=== PATIENT | female | born 1935 | race Caucasian/White ===

== ENCOUNTER → 2016-05-13 | Outpatient (REF) | payer MEDICARE, MEDICAID | PROVIDERS: ATTEND Internal Medicine Nephrology | DX: E11.22 Type 2 diabetes mellitus with diabetic chronic kidney disease (principal); I12.9 Hypertensive chronic kidney disease with stage 1 through stage 4 chronic kidney disease, or unspecified chronic kidney disease; N18.3 Chronic kidney disease, stage 3 (moderate); N25.81 Secondary hyperparathyroidism of renal origin; M10.9 Gout, unspecified ==

== ENCOUNTER → 2016-05-13 | Outpatient (REF) | payer MEDICARE, MEDICAID ==
[2016-05-13 11:02] LABS: MEAN CORPUSCULAR HEMOGLOBIN 30.1 pg (27.0-33.0); MEAN CORPUSCULAR HGB CONC 33.7 g/dl (32.0-36.5); MEAN CORPUSCULAR VOLUME 89.2 fl (80.0-96.0); RED CELL DISTRIBUTION WIDTH 13.7 % (11.5-14.5); WHITE BLOOD COUNT 7.2 K/mm3 (4.0-10.0)
[2016-05-13 11:29] LABS: ALBUMIN 3.3 GM/DL (3.2-5.2); CALCIUM LEVEL 9.2 MG/DL (8.8-10.2); CREATININE FOR GFR 1.27 MG/DL (0.55-1.02); GLOMERULAR FILTRATION RATE 43.1 (>32); PHOSPHORUS LEVEL 3.8 MG/DL (2.5-4.9); POTASSIUM SERUM 3.8 MEQ/L (3.5-5.1); URIC ACID 6.2 MG/DL (2.6-6.0)
== END ==
PROVIDERS: ATTEND Internal Medicine Nephrology
DX: E11.22 Type 2 diabetes mellitus with diabetic chronic kidney disease (principal); I12.9 Hypertensive chronic kidney disease with stage 1 through stage 4 chronic kidney disease, or unspecified chronic kidney disease; N18.3 Chronic kidney disease, stage 3 (moderate); N25.81 Secondary hyperparathyroidism of renal origin; M10.9 Gout, unspecified

== ENCOUNTER → 2016-06-09 | Outpatient (REF) | payer MEDICARE, MEDICAID ==
[2016-06-09 10:23] LABS: MEAN CORPUSCULAR HEMOGLOBIN 30.4 pg (27.0-33.0); MEAN CORPUSCULAR HGB CONC 33.7 g/dl (32.0-36.5); MEAN CORPUSCULAR VOLUME 90.2 fl (80.0-96.0); RED CELL DISTRIBUTION WIDTH 13.9 % (11.5-14.5); WHITE BLOOD COUNT 10.1 K/mm3 (4.0-10.0)
[2016-06-09 10:43] LABS: ALBUMIN 3.2 GM/DL (3.2-5.2); CALCIUM LEVEL 9.4 MG/DL (8.8-10.2); CREATININE FOR GFR 1.22 MG/DL (0.55-1.02); GLOMERULAR FILTRATION RATE 45.1 (>32); MAGNESIUM LEVEL 1.9 MG/DL (1.8-2.4); POTASSIUM SERUM 3.7 MEQ/L (3.5-5.1)
== END ==
PROVIDERS: ATTEND Internal Medicine Nephrology
DX: N18.3 Chronic kidney disease, stage 3 (moderate) (principal); E11.22 Type 2 diabetes mellitus with diabetic chronic kidney disease; M10.9 Gout, unspecified; N25.81 Secondary hyperparathyroidism of renal origin

== ENCOUNTER → 2016-10-06 | Outpatient (REF) | payer MEDICARE, MEDICAID ==
[2016-10-06 12:40] LABS: MEAN CORPUSCULAR HEMOGLOBIN 31.7 pg (27.0-33.0); MEAN CORPUSCULAR HGB CONC 33.6 g/dl (32.0-36.5); MEAN CORPUSCULAR VOLUME 94.3 fl (80.0-96.0); RED CELL DISTRIBUTION WIDTH 13.8 % (11.5-14.5); WHITE BLOOD COUNT 6.8 K/mm3 (4.0-10.0)
[2016-10-06 13:03] LABS: ALBUMIN 3.3 GM/DL (3.2-5.2); CALCIUM LEVEL 9.3 MG/DL (8.8-10.2); CREATININE FOR GFR 1.19 MG/DL (0.55-1.02); GLOMERULAR FILTRATION RATE 46.5 (>32); MAGNESIUM LEVEL 1.7 MG/DL (1.8-2.4); PHOSPHORUS LEVEL 3.6 MG/DL (2.5-4.9); POTASSIUM SERUM 3.7 MEQ/L (3.5-5.1); URIC ACID 6.6 MG/DL (2.6-6.0)
== END ==
PROVIDERS: ATTEND Internal Medicine Nephrology
DX: N18.3 Chronic kidney disease, stage 3 (moderate) (principal); E11.22 Type 2 diabetes mellitus with diabetic chronic kidney disease; M10.9 Gout, unspecified; N25.81 Secondary hyperparathyroidism of renal origin

== ENCOUNTER → 2016-12-30 | Outpatient (REF) | payer MEDICARE, MEDICAID | PROVIDERS: ATTEND Internal Medicine | DX: N39.0 Urinary tract infection, site not specified (principal); R41.0 Disorientation, unspecified ==

== ENCOUNTER → 2017-02-10 | Outpatient (REF) | payer MEDICARE, MEDICAID ==
[2017-02-10 10:44] LABS: ALBUMIN 3.3 GM/DL (3.2-5.2); CALCIUM LEVEL 9.5 MG/DL (8.8-10.2); CREATININE FOR GFR 1.35 MG/DL (0.55-1.02); GLOMERULAR FILTRATION RATE 40.1 (>32); MAGNESIUM LEVEL 1.8 MG/DL (1.8-2.4); PHOSPHORUS LEVEL 4.1 MG/DL (2.5-4.9); POTASSIUM SERUM 3.9 MEQ/L (3.5-5.1)
== END ==
PROVIDERS: ATTEND Physician Assistant
DX: I50.32 Chronic diastolic (congestive) heart failure (principal); E83.42 Hypomagnesemia

== ENCOUNTER → 2017-05-21 | Outpatient (CLI) | payer MEDICARE, MEDICAID ==
[2017-05-21 13:38] LABS: APPEARANCE, URINE CLEAR (CLEAR); BACTERIA, URINE AUTO NEGATIVE (NEGATIVE); BILIRUBIN, URINE AUTO NEGATIVE (NEGATIVE); BLOOD, URINE BLOOD NEGATIVE (NEGATIVE); COLOR, URINE STRAW (YELLOW); GLUCOSE, URINE (UA) AUTO NEGATIVE (NEGATIVE); KETONE, URINE AUTO NEGATIVE (NEGATIVE); LEUKOCYTE ESTERASE, URINE AUTO NEGATIVE (NEGATIVE); MUCUS, URINE SMALL (NEGATIVE); NITRITE, URINE AUTO NEGATIVE (NEGATIVE); PROTEIN, URINE AUTO NEGATIVE (NEGATIVE); RBC, URINE AUTO 2 /HPF (0-3); SPECIFIC GRAVITY URINE AUTO 1.008 (1.002-1.035); SQUAMOUS EPITHELIAL CELL UR AU 1 /HPF (0-6); UROBILINOGEN, URINE AUTO 0.2 mg/dL (0.0-2.0); WBC, URINE AUTO 2 /HPF (0-3)
[2017-05-21 14:21] LABS: CREATININE, URINE 25.7 MG/DL; MALB URINE SIEMENS 21.5 MG/L; MAU/CREAT RATIO 83.6 MCG/MG (0.0-30.0)
[2017-05-21 18:14] LABS: BASO % 0.4 % (0.0-1.0); EOS # 0.1 10^3/uL (0.0-0.50); EOS % 1.7 % (0.0-3.0); HEMATOCRIT 36.3 % (36.0-47.0); HEMOGLOBIN 11.9 g/dl (12.0-16.0); IMMATURE GRANULOCYTE % 0.7 % (0-3.0); LYMPH # 1.8 10^3/uL (1.5-4.5); LYMPH % 22.1 % (24.0-44.0); MEAN CORPUSCULAR HEMOGLOBIN 30.4 pg (27.0-33.0); MEAN CORPUSCULAR HGB CONC 32.8 g/dl (32.0-36.5); MEAN CORPUSCULAR VOLUME 92.6 fl (80.0-96.0); MONO # 0.6 10^3/uL (0.0-0.8); MONO % 7.6 % (0.0-5.0); NEUTROPHILS # 5.4 10^3/uL (1.8-7.7); NEUTROPHILS % 67.5 % (36.0-66.0); PLATELET COUNT, AUTOMATED 194 10^3/uL (150-450); RED BLOOD COUNT 3.92 10^6/uL (4.00-5.40); RED CELL DISTRIBUTION WIDTH 14.3 % (11.5-14.5)
[2017-05-21 18:47] LABS: PTH INTACT 62.1 PG/ML (18.5-88.0); TOTAL 25(OH) VITAMIN D 39.3 NG/ML (30.0-100.0)
[2017-05-21 18:59] LABS: ALBUMIN 3.9 GM/DL (3.2-5.2); ANION GAP 12 MEQ/L (8-16); BLOOD UREA NITROGEN 41 MG/DL (7-18); CALCIUM LEVEL 9.6 MG/DL (8.8-10.2); CARBON DIOXIDE LEVEL 27 MEQ/L (21-32); CHLORIDE LEVEL 100 MEQ/L (98-107); GLOMERULAR FILTRATION RATE 35.5 (>32); GLUCOSE, FASTING 206 MG/DL (70-100); PHOSPHORUS LEVEL 3.7 MG/DL (2.5-4.9); POTASSIUM SERUM 4.3 MEQ/L (3.5-5.1); SODIUM LEVEL 139 MEQ/L (136-145); URIC ACID 6.8 MG/DL (2.6-6.0)
== END ==
LOC: M SMT 11:53
DX: N18.3 Chronic kidney disease, stage 3 (moderate) (principal); M10.9 Gout, unspecified; N25.81 Secondary hyperparathyroidism of renal origin; D63.1 Anemia in chronic kidney disease; E55.9 Vitamin D deficiency, unspecified; E11.22 Type 2 diabetes mellitus with diabetic chronic kidney disease; I12.9 Hypertensive chronic kidney disease with stage 1 through stage 4 chronic kidney disease, or unspecified chronic kidney disease
CPT/HCPCS: 84550

== ENCOUNTER → 2017-08-24 | Outpatient (REF) | payer MEDICARE, MEDICAID ==
[2017-08-24 09:42] LABS: HEMATOCRIT 34.4 % (36.0-47.0); HEMOGLOBIN 11.4 g/dl (12.0-15.5); MEAN CORPUSCULAR HEMOGLOBIN 30.6 pg (27.0-33.0); MEAN CORPUSCULAR HGB CONC 33.1 g/dl (32.0-36.5); MEAN CORPUSCULAR VOLUME 92.5 fl (80.0-96.0); PLATELET COUNT, AUTOMATED 175 10^3/uL (150-450); RED BLOOD COUNT 3.72 10^6/uL (4.00-5.40); RED CELL DISTRIBUTION WIDTH 13.9 % (11.5-14.5); WHITE BLOOD COUNT 8.1 10^3/uL (4.0-10.0)
[2017-08-24 10:27] LABS: ALBUMIN 3.6 GM/DL (3.2-5.2); ALBUMIN/GLOBULIN RATIO 1.16 (1.00-1.93); ALKALINE PHOSPHATASE 68 U/L (45-117); ALT/SGPT 29 U/L (12-78); ANION GAP 12 MEQ/L (8-16); AST/SGOT 20 U/L (7-37); BILIRUBIN,TOTAL 0.3 MG/DL (0.2-1.0); BLOOD UREA NITROGEN 38 MG/DL (7-18); CALCIUM LEVEL 9.4 MG/DL (8.8-10.2); CARBON DIOXIDE LEVEL 28 MEQ/L (21-32); CHLORIDE LEVEL 101 MEQ/L (98-107); CREATININE FOR GFR 1.43 MG/DL (0.55-1.30); GLOMERULAR FILTRATION RATE 37.5 (>32); GLUCOSE, FASTING 163 MG/DL (70-100); SODIUM LEVEL 141 MEQ/L (136-145); TOTAL PROTEIN 6.7 GM/DL (6.4-8.2)
[2017-08-24 18:18] LABS: ESTIMATED AVERAGE GLUCOSE 189 MG/DL (60-110); HEMOGLOBIN A1c 8.2 %
== END ==
DX: E11.9 Type 2 diabetes mellitus without complications (principal)
CPT/HCPCS: 80053

== ENCOUNTER → 2017-08-27 | Outpatient (REF) | payer MEDICARE, MEDICAID ==
[2017-08-27 10:48] LABS: ANION GAP 12 MEQ/L (8-16); BLOOD UREA NITROGEN 40 MG/DL (7-18); CALCIUM LEVEL 9.2 MG/DL (8.8-10.2); CARBON DIOXIDE LEVEL 29 MEQ/L (21-32); CHLORIDE LEVEL 103 MEQ/L (98-107); GLOMERULAR FILTRATION RATE 38.4 (>32); GLUCOSE, FASTING 142 MG/DL (70-100); MAGNESIUM LEVEL 1.6 MG/DL (1.8-2.4); POTASSIUM SERUM 4.1 MEQ/L (3.5-5.1); SODIUM LEVEL 144 MEQ/L (136-145)
== END ==
DX: I50.32 Chronic diastolic (congestive) heart failure (principal); I48.2 Chronic atrial fibrillation
CPT/HCPCS: 83735

== ENCOUNTER → 2017-12-21 | Outpatient (REF) | payer MEDICARE, MEDICAID ==
[2017-12-21 09:58] LABS: BASO % 0.5 % (0.0-1.0); EOS # 0.2 10^3/uL (0.0-0.50); EOS % 2.9 % (0.0-3.0); HEMATOCRIT 33.6 % (36.0-47.0); HEMOGLOBIN 11.2 g/dl (12.0-15.5); IMMATURE GRANULOCYTE % 0.5 % (0-3.0); LYMPH # 2.1 10^3/uL (1.5-4.5); LYMPH % 28.8 % (24.0-44.0); MEAN CORPUSCULAR HEMOGLOBIN 30.8 pg (27.0-33.0); MEAN CORPUSCULAR HGB CONC 33.3 g/dl (32.0-36.5); MEAN CORPUSCULAR VOLUME 92.3 fl (80.0-96.0); MONO # 0.5 10^3/uL (0.0-0.8); MONO % 7.3 % (0.0-5.0); NEUTROPHILS # 4.4 10^3/uL (1.8-7.7); PLATELET COUNT, AUTOMATED 207 10^3/uL (150-450); RED BLOOD COUNT 3.64 10^6/uL (4.00-5.40); RED CELL DISTRIBUTION WIDTH 13.9 % (11.5-14.5); WHITE BLOOD COUNT 7.4 10^3/uL (4.0-10.0)
[2017-12-21 10:26] LABS: ALBUMIN 3.5 GM/DL (3.2-5.2); ANION GAP 12 MEQ/L (8-16); BLOOD UREA NITROGEN 45 MG/DL (7-18); CALCIUM LEVEL 9.4 MG/DL (8.8-10.2); CARBON DIOXIDE LEVEL 27 MEQ/L (21-32); CHLORIDE LEVEL 102 MEQ/L (98-107); CREATININE FOR GFR 1.58 MG/DL (0.55-1.30); GLOMERULAR FILTRATION RATE 33.4 (>32); GLUCOSE, FASTING 178 MG/DL (70-100); MAGNESIUM LEVEL 1.3 MG/DL (1.8-2.4); PHOSPHORUS LEVEL 3.6 MG/DL (2.5-4.9); POTASSIUM SERUM 3.9 MEQ/L (3.5-5.1); SODIUM LEVEL 141 MEQ/L (136-145); URIC ACID 7.5 MG/DL (2.6-6.0)
[2017-12-21 10:36] LABS: TOTAL 25(OH) VITAMIN D 33.5 NG/ML (30.0-100.0)
[2017-12-21 10:37] LABS: PTH INTACT 45.4 PG/ML (18.5-88.0)
== END ==
DX: N18.3 Chronic kidney disease, stage 3 (moderate) (principal); E55.9 Vitamin D deficiency, unspecified; N25.81 Secondary hyperparathyroidism of renal origin; Z79.899 Other long term (current) drug therapy
CPT/HCPCS: 83735

== ENCOUNTER → 2018-01-25 | Outpatient (REF) | payer MEDICARE, MEDICAID ==
[2018-01-25 13:53] LABS: APPEARANCE, URINE CLEAR (CLEAR); BACTERIA, URINE AUTO 1+ (NEGATIVE); BILIRUBIN, URINE AUTO NEGATIVE (NEGATIVE); BLOOD, URINE BLOOD NEGATIVE (NEGATIVE); COLOR, URINE YELLOW (YELLOW); GLUCOSE, URINE (UA) AUTO NEGATIVE (NEGATIVE); KETONE, URINE AUTO NEGATIVE (NEGATIVE); LEUKOCYTE ESTERASE, URINE AUTO TRACE (NEGATIVE); MUCUS, URINE SMALL (NEGATIVE); NITRITE, URINE AUTO NEGATIVE (NEGATIVE); PROTEIN, URINE AUTO NEGATIVE (NEGATIVE); RBC, URINE AUTO 1 /HPF (0-3); SPECIFIC GRAVITY URINE AUTO 1.012 (1.002-1.035); SQUAMOUS EPITHELIAL CELL UR AU 2 /HPF (0-6); UROBILINOGEN, URINE AUTO 0.2 mg/dL (0.0-2.0); WBC, URINE AUTO 3 /HPF (0-3)
== END ==
DX: R41.82 Altered mental status, unspecified (principal)
CPT/HCPCS: 81001

== ENCOUNTER → 2018-02-15 | Outpatient (REF) | payer MEDICARE, MEDICAID ==
[2018-02-15 10:13] LABS: HEMATOCRIT 34.7 % (36.0-47.0); HEMOGLOBIN 11.1 g/dl (12.0-15.5); MEAN CORPUSCULAR HEMOGLOBIN 30.3 pg (27.0-33.0); MEAN CORPUSCULAR VOLUME 94.8 fl (80.0-96.0); PLATELET COUNT, AUTOMATED 193 10^3/uL (150-450); RED BLOOD COUNT 3.66 10^6/uL (4.00-5.40); WHITE BLOOD COUNT 8.1 10^3/uL (4.0-10.0)
[2018-02-15 10:41] LABS: ALBUMIN 3.5 GM/DL (3.2-5.2); ALT/SGPT 22 U/L (12-78); BILIRUBIN,TOTAL 0.3 MG/DL (0.2-1.0); BLOOD UREA NITROGEN 39 MG/DL (7-18); CALCIUM LEVEL 9.2 MG/DL (8.8-10.2); CARBON DIOXIDE LEVEL 30 MEQ/L (21-32); CHLORIDE LEVEL 102 MEQ/L (98-107); CHOLESTEROL LEVEL 136 MG/DL (<200); CREATININE FOR GFR 1.53 MG/DL (0.55-1.30); GLOMERULAR FILTRATION RATE 34.6 (>32); GLUCOSE, FASTING 107 MG/DL (70-100); HDL CHOLESTEROL 26 MG/DL (>40); NON-HDL-C 110 MG/DL; SODIUM LEVEL 143 MEQ/L (136-145); TOTAL PROTEIN 6.4 GM/DL (6.4-8.2); TRIGLYCERIDES LEVEL 404 MG/DL (<150)
== END ==
PROVIDERS: ATTEND Nurse Practitioner Family
DX: E03.9 Hypothyroidism, unspecified (principal); I12.9 Hypertensive chronic kidney disease with stage 1 through stage 4 chronic kidney disease, or unspecified chronic kidney disease; N18.9 Chronic kidney disease, unspecified; E78.5 Hyperlipidemia, unspecified

== ENCOUNTER → 2018-04-26 | Outpatient (REF) | payer MEDICARE, MEDICAID ==
[2018-04-26 12:10] LABS: BASO % 0.5 % (0.0-1.0); EOS # 0.2 10^3/uL (0.0-0.50); HEMATOCRIT 36.4 % (36.0-47.0); HEMOGLOBIN 11.8 g/dl (12.0-15.5); LYMPH # 2.7 10^3/uL (1.5-4.5); MEAN CORPUSCULAR HEMOGLOBIN 30.6 pg (27.0-33.0); MEAN CORPUSCULAR HGB CONC 32.4 g/dl (32.0-36.5); MEAN CORPUSCULAR VOLUME 94.3 fl (80.0-96.0); MONO # 0.7 10^3/uL (0.0-0.8); MONO % 8.2 % (0.0-5.0); NEUTROPHILS # 4.8 10^3/uL (1.8-7.7); NEUTROPHILS % 56.9 % (36.0-66.0); PLATELET COUNT, AUTOMATED 185 10^3/uL (150-450); RED BLOOD COUNT 3.86 10^6/uL (4.00-5.40); WHITE BLOOD COUNT 8.4 10^3/uL (4.0-10.0)
[2018-04-26 12:34] LABS: ALBUMIN 3.7 GM/DL (3.2-5.2); CALCIUM LEVEL 8.9 MG/DL (8.8-10.2); CREATININE FOR GFR 1.51 MG/DL (0.55-1.30); GLOMERULAR FILTRATION RATE 35.1 (>32); MAGNESIUM LEVEL 1.6 MG/DL (1.8-2.4); PHOSPHORUS LEVEL 3.4 MG/DL (2.5-4.9); POTASSIUM SERUM 4.1 MEQ/L (3.5-5.1); URIC ACID 6.8 MG/DL (2.6-6.0)
[2018-04-26 12:46] LABS: PTH INTACT 74.6 PG/ML (18.5-88.0)
== END ==
PROVIDERS: ATTEND Internal Medicine Nephrology
DX: N18.9 Chronic kidney disease, unspecified (principal)

== ENCOUNTER → 2018-04-29 | Outpatient (REF) | payer MEDICARE, MEDICAID ==
[2018-04-29 16:28] LABS: APPEARANCE, URINE CLEAR (CLEAR); BACTERIA, URINE AUTO NEGATIVE (NEGATIVE); BILIRUBIN, URINE AUTO NEGATIVE (NEGATIVE); BLOOD, URINE BLOOD NEGATIVE (NEGATIVE); COLOR, URINE STRAW (YELLOW); GLUCOSE, URINE (UA) AUTO NEGATIVE (NEGATIVE); KETONE, URINE AUTO NEGATIVE (NEGATIVE); LEUKOCYTE ESTERASE, URINE AUTO TRACE (NEGATIVE); MUCUS, URINE SMALL (NEGATIVE); NITRITE, URINE AUTO NEGATIVE (NEGATIVE); PROTEIN, URINE AUTO NEGATIVE (NEGATIVE); RBC, URINE AUTO 1 /HPF (0-3); SPECIFIC GRAVITY URINE AUTO 1.008 (1.002-1.035); SQUAMOUS EPITHELIAL CELL UR AU 3 /HPF (0-6); UROBILINOGEN, URINE AUTO 0.2 mg/dL (0.0-2.0); WBC, URINE AUTO 3 /HPF (0-3)
== END ==
LOC: M LAB REF 15:32
PROVIDERS: ATTEND Internal Medicine Nephrology
DX: N18.3 Chronic kidney disease, stage 3 (moderate) (principal); E11.22 Type 2 diabetes mellitus with diabetic chronic kidney disease; I10 Essential (primary) hypertension

== ENCOUNTER 2018-06-29 20:25 | Emergency (ER) | payer MEDICARE, MEDICAID ==
[~2018-06-29] VITALS: Ht 152.4 cm; Wt 107.0 kg
[2018-06-29] MEDS ORDERED: NS 500 ML IV ONE (21:00)
[2018-06-29] MEDS ORDERED: NYST1POW9 TOP (21:25)
[2018-06-29 21:31] LABS: VENOUS BASE EXCESS -0.3 (-2.0-2.0); VENOUS O2 SATURATION 75.8 % (60.0-80.0); VENOUS PARTIAL PRESSURE CO2 43.4 mmHg (38.0-50.0); VENOUS PARTIAL PRESSURE O2 42.4 mmHg (30.0-50.0); VENOUS PH 7.378 UNITS (7.330-7.430); VENOUS STANDARD HCO3 23.8 MEQ/L; VENOUS TOTAL CO2 26.3 MEQ/L (24.0-28.0)
[2018-06-29 21:32] LABS: BASO % 0.3 % (0.0-1.0); EOS % 0.1 % (0.0-3.0); HEMATOCRIT 32.4 % (36.0-47.0); LYMPH # 1.1 10^3/uL (1.5-4.5); LYMPH % 9.7 % (24.0-44.0); MEAN CORPUSCULAR HEMOGLOBIN 31.8 pg (27.0-33.0); MEAN CORPUSCULAR VOLUME 93.6 fl (80.0-96.0); MONO # 0.8 10^3/uL (0.0-0.8); NEUTROPHILS # 9.1 10^3/uL (1.8-7.7); NEUTROPHILS % 82.3 % (36.0-66.0); PLATELET COUNT, AUTOMATED 176 10^3/uL (150-450); RED BLOOD COUNT 3.46 10^6/uL (4.00-5.40); WHITE BLOOD COUNT 11.1 10^3/uL (4.0-10.0)
[2018-06-29] MEDS ORDERED: INSULANT SC (21:35)
[2018-06-29] MEDS ORDERED: DOXE1CAP2 PO (21:35)
[2018-06-29] MEDS ORDERED: TYLE650T35 PO (21:35)
[2018-06-29] MEDS ORDERED: OMEP-221 PO (21:35)
[2018-06-29] MEDS ORDERED: DOXE1CAP PO (21:35)
[2018-06-29] MEDS ORDERED: BIOF4GEL4 TOP (22:07)
[2018-06-29] MEDS ORDERED: CLOTCRE3 TOP (22:07)
[2018-06-29] MEDS ORDERED: PROAAER10 INH (22:07)
[2018-06-29] MEDS ORDERED: ALLE180T33 PO (22:07)
[2018-06-29] MEDS ORDERED: COLA100C5 PO (22:07)
[2018-06-29] MEDS ORDERED: [UNRECOGNIZED DRUG - CODE] PO (22:07)
[2018-06-29] MEDS ORDERED: PRAD75CA5 PO (22:07)
[2018-06-29] MEDS ORDERED: FERR325T16 PO (22:07)
[2018-06-29] MEDS ORDERED: ALBU83IN INH (22:07)
[2018-06-29] MEDS ORDERED: ARTI99.0 OD (22:07)
[2018-06-29] MEDS ORDERED: I-VITAB PO (22:07)
[2018-06-29] MEDS ORDERED: ULTR50TA8 PO ×2 (22:07)
[2018-06-29] MEDS ORDERED: LIPI20TA PO (22:07)
[2018-06-29] MEDS ORDERED: MAG-TAB PO (22:07)
[2018-06-29] MEDS ORDERED: CAPS0.022 TOP (22:07)
[2018-06-29] MEDS ORDERED: MILKSUS3 PO (22:07)
[2018-06-29] MEDS ORDERED: SIME80TA PO (22:07)
[2018-06-29] MEDS ORDERED: CALC1TAB30 PO (22:07)
[2018-06-29] MEDS ORDERED: REST0.05 OD (22:07)
[2018-06-29] MEDS ORDERED: METF-729 PO (22:07)
[2018-06-29] MEDS ORDERED: BISO5TAB5 PO (22:07)
[2018-06-29] MEDS ORDERED: CURA1CRE2 TOP (22:07)
[2018-06-29] MEDS ORDERED: GABA-1171 PO (22:07)
[2018-06-29] MEDS ORDERED: ALDA25TA2 PO (22:07)
[2018-06-29] MEDS ORDERED: LOPE2TAB11 PO ×2 (22:07)
[2018-06-29] MEDS ORDERED: DRIS50003 PO (22:07)
[2018-06-29] MEDS ORDERED: DIGO0.12 PO (22:07)
[2018-06-29] MEDS ORDERED: FEBU40TA PO (22:07)
[2018-06-29] MEDS ORDERED: TORS20TA2 PO (22:07)
[2018-06-29] MEDS ORDERED: MAALSUS19 PO (22:07)
[2018-06-29] MEDS ORDERED: BREO1INH INH (22:07)
[2018-06-29] MEDS ORDERED: VITA100014 PO (22:07)
[2018-06-29] MEDS ORDERED: ACET-907 PO (22:07)
--- NOTE | 2018-06-29 22:15 | REPVR ---
EXAM: CT Head Without Contrast EXAM DATE/TIME: 06/29/2018 9:51 PM CLINICAL HISTORY: 83 years old, female; Signs and symptoms; Altered mental status/memory loss TECHNIQUE: Imaging protocol: Axial computed tomography images of the head/brain without contrast. Radiation optimization: All CT scans at this facility use at least one of these dose optimization techniques: automated exposure control; mA and/or kV adjustment per patient size (includes targeted exams where dose is matched to clinical indication); or iterative reconstruction. COMPARISON: No relevant prior studies available. FINDINGS: Brain: There is parenchymal volume loss. White matter changes are demonstrated in the subcortical, centrum semiovale and periventricular white matter consistent with small vessel white matter angiopathic gliosis. Ventricles: Normal. No ventriculomegaly. Bones/joints: There is hyperostosis frontalis interna. Sinuses: Visualized sinuses are unremarkable. No acute sinusitis. Mastoid air cells: Visualized mastoid air cells are unremarkable. No mastoid effusion. Soft tissues: Unremarkable. IMPRESSION: There is parenchymal volume loss. White matter changes are demonstrated in the subcortical, centrum semiovale and periventricular white matter consistent with small vessel white matter angiopathic gliosis. Electronically signed by: Tyler Diaz On 06/29/2018 22:15:34 PM
[2018-06-29 22:25] LABS: ALBUMIN 3.7 GM/DL (3.2-5.2); ALT/SGPT 17 U/L (12-78); BILIRUBIN,DIRECT 0.2 MG/DL (0.0-0.2); BILIRUBIN,TOTAL 0.7 MG/DL (0.2-1.0); BLOOD UREA NITROGEN 23 MG/DL (7-18); CARBON DIOXIDE LEVEL 25 MEQ/L (21-32); CHLORIDE LEVEL 105 MEQ/L (98-107); CPK CREATINE PHOSPHOKINASE 89 U/L (26-192); CREATININE FOR GFR 1.42 MG/DL (0.55-1.30); GLOMERULAR FILTRATION RATE 37.7 (>32); GLUCOSE, FASTING 118 MG/DL (70-100); MB/CK RELATIVE INDEX 1.57 (< OR =4); POTASSIUM SERUM 4.7 MEQ/L (3.5-5.1); SODIUM LEVEL 139 MEQ/L (136-145); TOTAL PROTEIN 7.1 GM/DL (6.4-8.2); TROPONIN I < 0.02 NG/ML (< 0.10)
--- NOTE | 2018-06-29 22:25 | ECGEPIP ---
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
[2018-06-29] MEDS ORDERED: ACETAMINOPHEN TAB 650MG DOSE (2X325MG) PO ONE (22:45)
[2018-06-29] MEDS ORDERED: ISOVUE-370 76% 100ML VIAL (Q9967) As Ordered ONE (23:11)
--- NOTE | 2018-06-29 23:44 | REPVR ---
EXAM: CT Chest With Contrast EXAM DATE/TIME: 06/29/2018 10:53 PM CLINICAL HISTORY: 83 years old, female; Signs and symptoms; Other: Large hernia; Additional info: Altered mental status, large hernia TECHNIQUE: Imaging protocol: Axial computed tomography images of the chest with intravenous contrast. Coronal and sagittal reformatted images were created and reviewed. Radiation optimization: All CT scans at this facility use at least one of these dose optimization techniques: automated exposure control; mA and/or kV adjustment per patient size (includes targeted exams where dose is matched to clinical indication); or iterative reconstruction. Contrast material: ISO; Contrast volume: 100 ml; Contrast route: AC; COMPARISON: CR PORTABLE CHEST X-RAY 06/29/2018 9:25 PM FINDINGS: Lungs: Atelectasis both lower lobes. Bilateral groundglass opacities in the lungs likely secondary to atelectasis. Volume loss in the right hemithorax. Pleural space: Small left pleural effusion. Heart: There is mild atherosclerotic calcification of the coronary arteries. Pulmonary arteries: Prominent central pulmonary arteries may indicate the presence of pulmonary arterial hypertension. Aorta: The aorta demonstrates mild atherosclerotic calcification. Lymph nodes: Unremarkable. No enlarged lymph nodes. Bones/joints: Unremarkable. No acute fracture. Soft tissues: Unremarkable. Liver: Peripherally calcified low attenuation focus in the liver measures 5.4 cm not definitely cystic. Correlation with ultrasound suggested. Hepatic cysts. Other findings: Suboptimal inspiratory effort. IMPRESSION: 1. Small left pleural effusion. Pleural thickening on the right. 2. Peripherally calcified low attenuation focus in the liver measures 5.4 cm not definitely cystic. Correlation with ultrasound suggested. 3. Prominent central pulmonary arteries may indicate the presence of pulmonary arterial hypertension. Electronically signed by: Tyler Diaz On 06/29/2018 23:43:49 PM
--- NOTE | 2018-06-29 23:53 | REPVR ---
EXAM: CT Abdomen and Pelvis With Contrast EXAM DATE/TIME: 06/29/2018 10:53 PM CLINICAL HISTORY: 83 years old, female; Signs and symptoms; Other: Laarge hernia; Additional info: Altered mental status, large hernia TECHNIQUE: Imaging protocol: Axial computed tomography images of the abdomen and pelvis with intravenous contrast. Coronal and sagittal reformatted images were created and reviewed. Radiation optimization: All CT scans at this facility use at least one of these dose optimization techniques: automated exposure control; mA and/or kV adjustment per patient size (includes targeted exams where dose is matched to clinical indication); or iterative reconstruction. Contrast material: ISO; Contrast volume: 100 ml; Contrast route: AC; COMPARISON: No relevant prior studies available. FINDINGS: ABDOMEN: Liver: There is a diffuse decrease in hepatic parenchymal density, consistent with fatty infiltration. Multiple hepatic cysts including a probable cyst with peripheral calcification in the hepatic dome and anterior right lobe of liver measuring 5.4 x 4.9 cm. Ultrasound confirmation suggested. Gallbladder and bile ducts: Hypodensity sludge or gravel layers dependently in the gallbladder. No large calcified stones. No ductal dilation. Pancreas: Normal. No ductal dilation. Spleen: Multiple splenic cysts measure up to 2.1 cm. Adrenals: There is bilateral adrenal hyperplasia. Kidneys and ureters: This small left renal cysts. Stomach and bowel: Normal. No obstruction. No mucosal thickening. Appendix: No evidence of appendicitis. PELVIS: Bladder: Unremarkable as visualized. Reproductive: Calcified uterine fibroids. ABDOMEN and PELVIS: Intraperitoneal space: Normal. No free air. No significant fluid collection. Bones/joints: The spine demonstrates moderate degenerative changes. Grade 2 anterolisthesis of L4 on L5. Moderate central spinal stenosis at L2-3, moderate to severe central spinal stenosis at L3-4 and severe central spinal stenosis at L4-5. Soft tissues: Large bowel containing ventral normal hernia with surrounding inflammatory reaction. Clinical correlation to exclude incarceration suggested. Vasculature: The aorta demonstrates moderate atherosclerotic calcification. Lymph nodes: Normal. No enlarged lymph nodes. IMPRESSION: 1. There is a diffuse decrease in hepatic parenchymal density, consistent with fatty infiltration. 2. There is bilateral adrenal hyperplasia. 3. Large bowel containing ventral normal hernia with surrounding inflammatory reaction. Clinical correlation to exclude incarceration suggested. 4. Gravel or sludge in the gallbladder. COMMENT: Consistent with the [employer]'s Incidental Findings Committee Report (J Am Sunny Radiol 2010): Unless the patient's specific circumstances suggest otherwise, any liver lesion 0.5 cm or less, any cystic kidney lesion less than 1.0 cm, and/or any adrenal lesion 1.0 cm or less not otherwise characterized in this report as possessing suspicious or indeterminate imaging features is/are highly likely to be benign and do not require follow-up imaging or biopsy. Electronically signed by: Tyler Diaz On 06/29/2018 23:52:53 PM
[2018-06-30 00:52] VITALS: BP 145/65
--- NOTE | 2018-06-30 09:12 | REP ---
CHEST, PORTABLE: AP portable view of the chest is performed. Comparison 10/28/2012. There is bibasilar fibroatelectatic change. Heart is mildly enlarged. Mediastinal silhouette is grossly unremarkable. There is curvature of the thoracic spine toward the right with degenerative changes. IMPRESSION: Fibroatelectatic change with no definite infiltrate. Electronically Signed by Pepe Medrano MD 06/30/2018 11:07 A
--- NOTE | 2018-06-30 13:03 | ED PDOC ---
Post-Departure Follow-Up dr whitaker faxed formal report of ct abd/p for fu Ami Calles MD Jun 30, 2018 13:03
--- NOTE | 2018-06-30 13:04 | ED PDOC ---
Post-Departure Follow-Up additionally ct chest faxed to dr whitaker for fu Ami Calles MD Jun 30, 2018 13:04
== END 2018-06-30 01:06 | disposition home or self-care (01) ==
LOC: M ED 20:25 → EDBD 20:25 → M ED 06-30 01:06
DX: R51 Headache (principal); I48.91 Unspecified atrial fibrillation; E11.9 Type 2 diabetes mellitus without complications; N18.9 Chronic kidney disease, unspecified; F03.90 Unspecified dementia, unspecified severity, without behavioral disturbance, psychotic disturbance, mood disturbance, and anxiety; K46.9 Unspecified abdominal hernia without obstruction or gangrene; W19.XXXA Unspecified fall, initial encounter; Y92.129 Unspecified place in nursing home as the place of occurrence of the external cause; Y93.89 Activity, other specified; Y99.9 Unspecified external cause status; N39.0 Urinary tract infection, site not specified; Z79.4 Long term (current) use of insulin; Z79.899 Other long term (current) drug therapy; Z88.6 Allergy status to analgesic agent; Z88.0 Allergy status to penicillin; Z88.5 Allergy status to narcotic agent; Z88.8 Allergy status to other drugs, medicaments and biological substances
CPT/HCPCS: 70450; 71045; 71260; 74177; 80048; 80076; 81001; 82140; 82550; 82553; 82803; 83605; 84443; 84484; 85025; 87040; 87086; 93005; 93041; 96360; 96361; 99285; Q9967

== ENCOUNTER → 2018-06-29 | Outpatient (REF) | payer MEDICARE, MEDICAID ==
[~2018-06-29] MED LIST: ACET-907 PO; ALBU83IN INH; ALDA25TA2 PO; ALLE180T33 PO; ARTI99.0 OD; BIOF4GEL4 TOP; BISO5TAB5 PO; BREO1INH INH; CALC1TAB30 PO; CAPS0.022 TOP; CLOTCRE3 TOP; COLA100C5 PO; CURA1CRE2 TOP; DIGO0.12 PO; DOXE1CAP PO; DOXE1CAP2 PO; DRIS50003 PO; FEBU40TA PO; FERR325T16 PO; GABA-1171 PO; I-VITAB PO; INSULANT SC; LIPI20TA PO; LOPE2TAB11 PO; MAALSUS19 PO; MAG-TAB PO; METF-729 PO; MILKSUS3 PO; NYST1POW9 TOP; OMEP-221 PO; PRAD75CA5 PO; PROAAER10 INH; REST0.05 OD; SIME80TA PO; TORS20TA2 PO; TYLE650T35 PO; ULTR50TA8 PO; VITA100014 PO; [UNRECOGNIZED DRUG - CODE] PO
[2018-06-29 18:38] LABS: APPEARANCE, URINE CLEAR (CLEAR); BACTERIA, URINE AUTO NEGATIVE (NEGATIVE); BILIRUBIN, URINE AUTO NEGATIVE (NEGATIVE); BLOOD, URINE BLOOD NEGATIVE (NEGATIVE); COLOR, URINE STRAW (YELLOW); GLUCOSE, URINE (UA) AUTO NEGATIVE (NEGATIVE); KETONE, URINE AUTO NEGATIVE (NEGATIVE); LEUKOCYTE ESTERASE, URINE AUTO NEGATIVE (NEGATIVE); MUCUS, URINE SMALL (NEGATIVE); NITRITE, URINE AUTO NEGATIVE (NEGATIVE); PROTEIN, URINE AUTO NEGATIVE (NEGATIVE); RBC, URINE AUTO 0 /HPF (0-3); SPECIFIC GRAVITY URINE AUTO 1.005 (1.002-1.035); SQUAMOUS EPITHELIAL CELL UR AU 0 /HPF (0-6); UROBILINOGEN, URINE AUTO 0.2 mg/dL (0.0-2.0); WBC, URINE AUTO 1 /HPF (0-3)
== END ==
LOC: M LAB REF 18:23
PROVIDERS: ATTEND Nurse Practitioner Family
DX: N39.0 Urinary tract infection, site not specified (principal)

== ENCOUNTER → 2018-08-17 | Outpatient (REF) | payer MEDICARE, MEDICAID ==
[~2018-08-17] MED LIST changes: -ARTI99.0 OD; +ARTIDRO2 OU; +BISO5TAB14 PO; -BISO5TAB5 PO; +CYAN100050 PO; -DIGO0.12 PO; +DIGO0.123 PO; -FEBU40TA PO; +FEBU40TA4 PO; -LOPE2TAB11 PO; +LOPE2TAB12 PO; +MAGN64TA3 PO; -REST0.05 OD; +REST0.05 OU; -VITA100014 PO
[2018-08-17 09:06] LABS: CALCIUM LEVEL 9.8 MG/DL (8.8-10.2); CREATININE FOR GFR 1.89 MG/DL (0.55-1.30); GLOMERULAR FILTRATION RATE 27.1 (>32)
[2018-08-17 11:23] LABS: PTH INTACT 41.9 PG/ML (18.5-88.0)
== END ==
PROVIDERS: ATTEND Nurse Practitioner Family
DX: E83.52 Hypercalcemia (principal)

== ENCOUNTER → 2018-09-14 | Outpatient (CLI) | payer MEDICARE, MEDICAID ==
[~2018-09-14] MED LIST changes: +ARTI99.0 OD; -ARTIDRO2 OU; -BISO5TAB14 PO; +BISO5TAB5 PO; +DIGO0.12 PO; -DIGO0.123 PO; +FEBU40TA PO; -FEBU40TA4 PO; +LOPE2TAB11 PO; -LOPE2TAB12 PO; -MAGN64TA3 PO; +REST0.05 OD; -REST0.05 OU
[2018-09-14 12:08] LABS: CALCIUM LEVEL 10.6 MG/DL (8.8-10.2); CREATININE FOR GFR 1.68 MG/DL (0.55-1.30); GLOMERULAR FILTRATION RATE 31.1 (>32); POTASSIUM SERUM 4.2 MEQ/L (3.5-5.1)
== END ==
LOC: M LAB 10:47
PROVIDERS: ATTEND Nurse Practitioner Family
DX: E11.40 Type 2 diabetes mellitus with diabetic neuropathy, unspecified (principal)

== ENCOUNTER → 2018-10-31 | Outpatient (REF) | payer MEDICARE, MEDICAID ==
[~2018-10-31] MED LIST changes: -ARTI99.0 OD; +ARTIDRO2 OU; +BISO5TAB14 PO; -BISO5TAB5 PO; -DIGO0.12 PO; +DIGO0.123 PO; -FEBU40TA PO; +FEBU40TA4 PO; -LOPE2TAB11 PO; +LOPE2TAB12 PO; +MAGN64TA3 PO; -REST0.05 OD; +REST0.05 OU
[2018-10-31 19:51] LABS: APPEARANCE, URINE HAZY (CLEAR); BACTERIA, URINE AUTO NEGATIVE (NEGATIVE); BILIRUBIN, URINE AUTO NEGATIVE (NEGATIVE); BLOOD, URINE BLOOD NEGATIVE (NEGATIVE); COLOR, URINE YELLOW (YELLOW); GLUCOSE, URINE (UA) AUTO NEGATIVE (NEGATIVE); KETONE, URINE AUTO NEGATIVE (NEGATIVE); LEUKOCYTE ESTERASE, URINE AUTO TRACE (NEGATIVE); NITRITE, URINE AUTO NEGATIVE (NEGATIVE); PROTEIN, URINE AUTO NEGATIVE (NEGATIVE); RBC, URINE AUTO 0 /HPF (0-3); SPECIFIC GRAVITY URINE AUTO 1.013 (1.002-1.035); SQUAMOUS EPITHELIAL CELL UR AU 5 /HPF (0-6); UROBILINOGEN, URINE AUTO 0.2 mg/dL (0.0-2.0); WBC, URINE AUTO 2 /HPF (0-3)
== END ==
LOC: M LAB REF 19:15
PROVIDERS: ATTEND Internal Medicine Nephrology
DX: N18.3 Chronic kidney disease, stage 3 (moderate) (principal); N25.81 Secondary hyperparathyroidism of renal origin; E83.42 Hypomagnesemia

== ENCOUNTER → 2018-11-01 | Outpatient (REF) | payer MEDICARE, MEDICAID ==
[~2018-11-01] MED LIST changes: +ARTIDRO2 OD; -ARTIDRO2 OU; -BISO5TAB14 PO; +BISO5TAB5 PO; +DIGO0.12 PO; -DIGO0.123 PO; -MAGN64TA3 PO; +REST0.05 OD; -REST0.05 OU
[2018-11-01 09:51] LABS: BASO % 0.5 % (0.0-1.0); EOS # 0.2 10^3/uL (0.0-0.50); EOS % 2.2 % (0.0-3.0); HEMATOCRIT 32.7 % (36.0-47.0); HEMOGLOBIN 10.5 g/dl (12.0-15.5); LYMPH # 2.1 10^3/uL (1.5-4.5); LYMPH % 27.5 % (24.0-44.0); MEAN CORPUSCULAR HEMOGLOBIN 30.3 pg (27.0-33.0); MEAN CORPUSCULAR HGB CONC 32.1 g/dl (32.0-36.5); MEAN CORPUSCULAR VOLUME 94.2 fl (80.0-96.0); MONO # 0.6 10^3/uL (0.0-0.8); NEUTROPHILS # 4.7 10^3/uL (1.8-7.7); NEUTROPHILS % 61.2 % (36.0-66.0); PLATELET COUNT, AUTOMATED 189 10^3/uL (150-450); RED BLOOD COUNT 3.47 10^6/uL (4.00-5.40); WHITE BLOOD COUNT 7.8 10^3/uL (4.0-10.0)
[2018-11-01 10:17] LABS: ALBUMIN 3.5 GM/DL (3.2-5.2); CREATININE FOR GFR 1.39 MG/DL (0.55-1.30); GLOMERULAR FILTRATION RATE 38.6 (>32); MAGNESIUM LEVEL 1.7 MG/DL (1.8-2.4); POTASSIUM SERUM 4.3 MEQ/L (3.5-5.1); URIC ACID 5.5 MG/DL (2.6-6.0)
[2018-11-01 10:27] LABS: PTH INTACT 22.6 PG/ML (18.5-88.0)
== END ==
PROVIDERS: ATTEND Internal Medicine Nephrology
DX: N18.3 Chronic kidney disease, stage 3 (moderate) (principal); M10.9 Gout, unspecified; E83.42 Hypomagnesemia; N25.81 Secondary hyperparathyroidism of renal origin

== ENCOUNTER 2019-02-10 02:01 | Inpatient (IN) | payer MEDICARE, MEDICAID ==
[~2019-02-10] VITALS: Ht 157.5 cm; Wt 102.6 kg
[~2019-02-10 02:01] MED LIST changes: -ARTIDRO2 OD; +ARTIDRO2 OU; -BISO5TAB5 PO; +BISO5TAB9 PO; -DIGO0.12 PO; +DIGO0.123 PO; -REST0.05 OD; +REST0.05 OU
--- NOTE | 2019-02-10 04:35 | REPVR ---
PROCEDURE INFORMATION: Exam: XR Left Hip with Pelvis when Performed Exam date and time: 02/10/2019 3:16 AM Age: 84 years old Clinical history: Injury or trauma; Fall; Initial encounter; Sprain or strain; Left; Hip TECHNIQUE: Imaging protocol: XR Left hip with pelvis when performed. Views: 2 or 3 views. COMPARISON: CT ABD/PEL W/IV CONTRAST ONLY 06/29/2018 11:12 PM FINDINGS: Bones/joints: There is marked lower lumbar spine DJD. There is a 1.5 cm left femoral neck sclerotic lesion, unchanged from CT scan of 06/29/2018. Soft tissues: Unremarkable. Organs: Calcified masses seen in the pelvis likely calcified fibroids. IMPRESSION: No fracture or dislocation. Electronically signed by: Robert Laughlin On 02/10/2019 04:34:49 AM
[2019-02-10] MEDS ORDERED: ACETAMINOPHEN TAB 650MG DOSE (2X325MG) PO ONE (05:00)
[2019-02-10 05:43] LABS: BASO % 0.2 % (0.0-1.0); EOS # 0.1 10^3/uL (0.0-0.5); EOS % 1.5 % (0.0-3.0); HEMATOCRIT 33.3 % (36.0-47.0); HEMOGLOBIN 10.6 g/dl (12.0-15.5); LYMPH # 1.5 10^3/uL (1.5-5.0); MEAN CORPUSCULAR HEMOGLOBIN 30.2 pg (27.0-33.0); MEAN CORPUSCULAR HGB CONC 31.8 g/dl (32.0-36.5); MEAN CORPUSCULAR VOLUME 94.9 fl (80.0-96.0); MONO # 0.6 10^3/uL (0.0-0.8); MONO % 6.7 % (0.0-5.0); NEUTROPHILS # 6.9 10^3/uL (1.5-8.5); NEUTROPHILS % 75.2 % (36.0-66.0); PLATELET COUNT, AUTOMATED 188 10^3/uL (150-450); RED BLOOD COUNT 3.51 10^6/uL (4.00-5.40); WHITE BLOOD COUNT 9.1 10^3/uL (4.0-10.0)
[2019-02-10 06:18] LABS: ALBUMIN 3.4 GM/DL (3.2-5.2); ALT/SGPT 19 U/L (12-78); BILIRUBIN,DIRECT < 0.1 MG/DL (0.0-0.2); BILIRUBIN,TOTAL 0.4 MG/DL (0.2-1.0); BLOOD UREA NITROGEN 35 MG/DL (7-18); CALCIUM LEVEL 9.9 MG/DL (8.8-10.2); CARBON DIOXIDE LEVEL 29 MEQ/L (21-32); CHLORIDE LEVEL 103 MEQ/L (98-107); CK-MB VALUE MASS 1.2 NG/ML (<3.6); CPK CREATINE PHOSPHOKINASE 90 U/L (26-192); CREATININE FOR GFR 1.68 MG/DL (0.55-1.30); FREE T4 1.04 NG/DL (0.76-1.46); GLUCOSE, FASTING 137 MG/DL (70-100); MB/CK RELATIVE INDEX 1.33 (< OR =4); POTASSIUM SERUM 4.8 MEQ/L (3.5-5.1); SODIUM LEVEL 141 MEQ/L (136-145); TOTAL PROTEIN 6.8 GM/DL (6.4-8.2); TROPONIN I < 0.02 NG/ML (< 0.10)
--- NOTE | 2019-02-10 06:24 | REPVR ---
PROCEDURE INFORMATION: Exam: CT Abdomen And Pelvis Without Contrast Exam date and time: 02/10/2019 5:43 AM Age: 84 years old Clinical history: Abdominal pain; Generalized; Additional info: Trauma TECHNIQUE: Imaging protocol: Computed tomography of the abdomen and pelvis without contrast. Radiation optimization: All CT scans at this facility use at least one of these dose optimization techniques: automated exposure control; mA and/or kV adjustment per patient size (includes targeted exams where dose is matched to clinical indication); or iterative reconstruction. COMPARISON: CT ABD/PEL W/IV CONTRAST ONLY 06/29/2018 11:12 PM FINDINGS: Liver: Multiple hepatic cysts seen the largest is at the dome measuring 5.7 x 5.0 cm demonstrating mural calcification, grossly unchanged. Gallbladder and bile ducts: Normal. No calcified stones. No ductal dilation. Pancreas: Normal. No ductal dilation. Spleen: Splenic hypodense lesions seen the largest measures 2.5 cm. Adrenals: Normal. No mass. Kidneys and ureters: There is a 1.3 cm left mid renal pole dense nodule. There is no hydronephrosis. Stomach and bowel: There is a right anterior abdominal wall hernia measuring 19.8 x 18.9 cm containing small and large bowel loops. The hernial sac neck measures 9.9 cm. There is marked sigmoid colon diverticulosis. Appendix: No evidence of appendicitis. Intraperitoneal space: See Stomach And Bowel Finding. Vasculature: There is severe aortic and iliac mural calcifications. Lymph nodes: Unremarkable. No enlarged lymph nodes. Bladder: Unremarkable as visualized. Reproductive: Calcified uterine fibroids seen. Bones/joints: There is a 1.7 cm left femoral neck likely benign sclerotic lesion. There is lumbar spine scoliosis with severe multilevel lumbar spine DJD. There is extensive multilevel facet arthrosis and degenerative changes. There is a grade 1-2 anterolisthesis of L4 on L5. Soft tissues: Unremarkable. IMPRESSION: 1. No definite CT evidence of traumatic abdominal or pelvic injuries, although evaluation is limited due to lack of IV contrast. 2. Hepatic cysts with the largest cyst is at the dome of the liver measuring 5.7 x 5.0 cm demonstrating mural calcification and slightly heterogeneous internal density. Further characterization with ultrasound or MRI is recommended. 3. Splenic hypodense lesions slightly higher than simple fluid density, not completely characterized and grossly unchanged since the prior exam. These could represent cysts or benign lesions such as hemangiomas. Further characterization with MRI may be obtained. 4. 1.3 cm left mid renal pole dense nodule, not clearly seen on the prior exam. This could represent a cyst containing proteinaceous material or blood products. This is commensurate with Bosniak 2 cyst. Followup MRI in 6-12 months is suggested. 5. Large anterior right lower abdominal wall hernia containing multiple small and large bowel loops with no evidence of bowel obstruction and no CT signs of strangulation. 6. Marked sigmoid colon diverticulosis. 7. Lumbar spine scoliosis with extensive multilevel lumbar spine DJD with grade 1-2 anterolisthesis of L4 on L5 Electronically signed by: Robert Laughlin On 02/10/2019 06:23:52 AM
--- NOTE | 2019-02-10 06:36 | REPVR ---
PROCEDURE INFORMATION: Exam: CT Chest Without Contrast Exam date and time: 02/10/2019 5:43 AM Age: 84 years old Clinical history: Chest pain; Additional info: Trauma TECHNIQUE: Imaging protocol: Computed tomography of the chest without contrast. Radiation optimization: All CT scans at this facility use at least one of these dose optimization techniques: automated exposure control; mA and/or kV adjustment per patient size (includes targeted exams where dose is matched to clinical indication); or iterative reconstruction. COMPARISON: CT Chest with contrast 06/29/2018 11:12 PM FINDINGS: Lungs: Chronic interstitial lung process is noted with peripheral smooth interlobular septal thickening with scattered areas of peripheral subpleural cysts. There is overall mild smooth interlobular septal thickening. There is 2-3 mm left upper lobe subpleural groundglass nodule (axial image 32) Pleural space: Unremarkable. No pneumothorax. No pleural effusion. Heart: The heart is enlarged. There is coronary vascular calcifications. Pulmonary arteries: The pulmonary trunk is mildly dilated 3.4 cm. Aorta: The thoracic aorta is normal in caliber demonstrating moderate calcifications. Lymph nodes: Nonspecific a few prominent paratracheal lymph node seen measuring up to 1.8 cm. Enlarged left axillary lymph node seen measuring 2.1 x 1.4 cm. Diaphragm: There is elevation of the right hemidiaphragm. Bones/joints: There is an old left posterior 10th rib fracture. There is an acute posterolateral left 11th rib fracture. There is old right lateral fifth rib fracture. Soft tissues: Unremarkable. IMPRESSION: 1. Acute posterolateral left 11th rib fracture. 2. Old posterior left 10th and lateral right fifth rib fractures. 3. Mild chronic interstitial lung disease. Additionally noted is mild diffuse interlobular septal thickening which could be secondary to an element of interstitial edema. 4. 2-3 mm left upper lobe subpleural groundglass nodule. No routine follow-up is indicated. (Loren et al., Fleischner Society, 2017) 5. Nonspecific prominent mediastinal and left axillary lymph nodes. These could be reactive in nature however other underlying etiologies cannot be excluded. Given the presence of a left axillary lymph node, correlation of the left breast to exclude malignancy is suggested. Electronically signed by: Robert Laughlin On 02/10/2019 06:36:51 AM
[2019-02-10] MEDS ORDERED: ACETAMINOPHEN TAB 650MG DOSE (2X325MG) PO PRN (07:15)
[2019-02-10] MEDS ORDERED: ACETAMINOPHEN 650MG ER TAB (TYLENOL ARTHRITIS) PO PRN (07:15)
[2019-02-10] MEDS ORDERED: MAGN64TA3 PO (07:54)
[2019-02-10] MEDS: HumaLOG INSULIN (NovoLOG) PER UNIT SC SCH ×3 (12:00→21:00)
[2019-02-10] MEDS ORDERED: SIMETHICONE 80 MG CHEW TAB PO PRN (12:45)
[2019-02-10] MEDS ORDERED: guaiFENesin SYRUP 200 MG/10 ML UDC PO PRN (12:45)
[2019-02-10] MEDS ORDERED: GLUCAGON FOR INJ 1 MG VIAL (J1610) SC PRN (12:45)
[2019-02-10] MEDS ORDERED: GLUCOSE 4 GM CHEW TABLET PO PRN (12:45)
[2019-02-10] MEDS ORDERED: DEXTROSE 50% 50 ML SYRINGE IV PRN (12:45)
[2019-02-10] MEDS ORDERED: CAPSAICIN 0.025% CR 60 GM TOP PRN (12:45)
[2019-02-10] MEDS ORDERED: NYSTATIN 100,000 UNITS/GM TOPICAL PWD 15 GM TOP PRN (12:45)
[2019-02-10] MEDS: DOCUSATE SODIUM 100 MG CAP PO SCH (13:59)
[2019-02-10] MEDS: LEVEMIR (INSULIN DETEMIR) 1 UNITS/0.01ML SC SCH ×2 (13:59→21:48)
[2019-02-10 14:00] VITALS: BP 138/69
[2019-02-10] MEDS: ACETAMINOPHEN 500 MG TAB PO PRN (14:00)
[2019-02-10] MEDS: SPIRONOLACTONE 25 MG TAB PO SCH (14:00)
[2019-02-10] MEDS: CYANOCOBALAMIN 500 MCG TAB PO SCH (14:00)
[2019-02-10] MEDS: OMEPRAZOLE 20 MG CAP PO SCH (14:00)
--- NOTE | 2019-02-10 15:20 | ECGEPIP ---
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
[2019-02-10] MEDS: FEBUXOSTAT 40 MG TABLET (ULORIC) PO SCH (16:29)
[2019-02-10] MEDS: TORSEMIDE 20 MG TAB PO SCH (16:29)
[2019-02-10] MEDS: traMADol 50 MG TAB PO PRN (16:32)
--- NOTE | 2019-02-10 17:14 | HPEPDOC ---
General Date of Admission Feb 10, 2019 at 07:09 Date of Service: Feb 10, 2019 Attending Physician: LAILA HENRY MD Chief Complaint The patient is a 84-year-old female admitted with a reason for visit of Rib Fracture. 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 In the ED initial vitals were BP 161/72, T 97.8, HR 72, RR20 and she was AOx3 reporting that she had fallen onto her left side with associated left sided especially lateral chest area pain. Initial work up was notable for a chest CT that showed a new left 11th rib posterior lateral rib fracture as well as old left 10th and 5th rib fractures, while CT A/P showed no injuries but noted hepatic cysts of which the largest was calcified and 5.7x5cm, stable splenic lesions and sigmoid diverticulosis, while a hip/pelvix XR showed no fracture. Labs showed WBC 9.1, Hgb 10.6, Hct 33.3, platelets 188, Na 141, K 4.8, Cr 1.68, and normal LFTs, while EKG was non-ischemic, troponin was negative and TSH was 3.1 with a free T4 of 1.04. She was given tylenol and expressed that she would like to be given tylenol only and no narcotic pain medications at this time. She is now being admitted to medicine to manage her rib fracture pain and evaluation by physical therapy. Home Medications Scheduled Acetaminophen (Tylenol Arthritis) 650 Mg Tablet.er, 1,300 MG PO QHS, (Reported) Atorvastatin Calcium (Lipitor) 20 Mg Tablet, 20 MG PO QHS, (Reported) Bisoprolol Fumarate (Bisoprolol Fumarate) 5 Mg Tablet, 5 MG PO QHS, (Reported) Calcium Carbonate/Vitamin D3 (Calcium 500-Vit D3 200 Caplet) 1 Each Tablet, 1 TAB PO DAILY, (Reported) Cyanocobalamin (Vitamin B-12) (Vitamin B-12) 1,000 Mcg Tablet, 1,000 MCG PO DAILY, (Reported) Cyclosporine (Restasis) 0.05% Droperette, 1 DROP OU BID, (Reported) Dabigatran Etexilate Mesylate (Pradaxa) 75 Mg Capsule, 75 MG PO BID, (Reported) AT 0900 AND 1700 Digoxin (Digoxin) 125 Mcg Tablet, 125 MCG PO Q2D, (Reported) Docusate Sodium (Colace) 100 Mg Capsule, 100 MG PO DAILY, (Reported) Doxercalciferol (Doxercalciferol) 2.5 Mcg Capsule, 2.5 MCG PO DAILY, (Reported) AT 1700 WITH 0.5 MCG DOSE Doxercalciferol (Doxercalciferol) 0.5 Mcg Capsule, 0.5 MCG PO DAILY, (Reported) AT 1700 WITH 2.5 MCG DOSE Ergocalciferol (Vitamin D2) (Drisdol) 50,000 Unit Capsule, 50,000 UNIT PO QMONTH, (Reported) ON THE 4TH OF THE MONTH Febuxostat (Uloric) 40 Mg Tablet, 40 MG PO QPM, (Reported) AT 1600 Ferrous Gluconate (Ferrous Gluconate) 324 Mg Tablet, 324 MG PO 3XW, (Reported) ON WEDNESDAY, WEDNESDAY, AND WEDNESDAY AT 0600; WITH ORANGE JUICE ON AN EMPTY STOMACH Fluticasone/Vilanterol (Breo Ellipta 100-25 Mcg INH) 1 Each Blst.w.dev, 1 PUFF INH QPM, (Reported) AT 1600 Gabapentin (Gabapentin) 100 Mg Capsule, 200 MG PO QHS, (Reported) Insulin Glargine (Lantus) 100 Unit/1 Ml Vial, 30 UNITS SC BID, (Reported) Magnesium Chloride (Mag Delay) 64 Mg Tablet.dr, 128 MG PO DAILY, (Reported) Metformin HCl (Metformin ER Osmotic) 500 Mg Tab.er.24, 1,000 MG PO BID, (Reported) AT 1000 AND 1700 Omeprazole (Omeprazole) 40 Mg Capsule.dr, 40 MG PO DAILY, (Reported) Polyvinyl Alcohol (Artificial Tears) 15 Ml Drops, 1 DROP OU BID, (Reported) Spironolactone (Aldactone) 25 Mg Tablet, 25 MG PO DAILY, (Reported) Torsemide (Torsemide) 20 Mg Tablet, 40 MG PO BID, (Reported) Tramadol HCl (Ultram) 50 Mg Tablet, 50 MG PO QHS, (Reported) Vit A/Vit C/Vit E/Zinc/Copper (I-Abdoulaye Protect Tablet) 1 Each Tablet, 1 TAB PO BID, (Reported) Scheduled PRN Acetaminophen (Tylenol) 325 Mg Tablet, 650 MG PO Q6H PRN for ARTHRITIS PAIN, (Reported) Albuterol Sulf (Albuterol Sulfate) 2.5 Mg/3 Ml Vial.neb, 2.5 MG INH QID PRN for SHORTNESS OF BREATH, (Reported) Albuterol Sulfate (Proair Hfa) 8.5 Gm Hfa.aer.ad, 2 PUFF INH Q4H PRN for COUGH, (Reported) Capsaicin (Capsaicin) 0.025% Cream..g., 1 APLCT TOP BID PRN for FOOT PAIN, (Reported) Fexofenadine HCl (Ruba Allergy) 180 Mg Tablet, 180 MG PO QHS PRN for ALLERGIES, (Reported) Loperamide HCl (Imodium A-D) 2 Mg Tablet, 2 MG PO PRN PRN for AFTER EACH LOOSE STOOL, (Reported) ONE TABLET AFTER EACH LOOSE STOOL AFTER INITIAL 4 MG DOSE GIVEN Loperamide HCl (Imodium A-D) 2 Mg Tablet, 2 MG PO DAILY PRN for FIRST LOOSE STOOL, (Reported) MDD 8MG Mag Hydrox/Aluminum Hyd/Simeth (Maalox Maximum Strength Susp) 355 Ml Oral.susp, 30 ML PO Q6H PRN for INDIGESTION, (Reported) Magnesium Hydroxide (Milk of Magnesia) 400 Mg/5 Ml Oral.susp, 30 ML PO Q4H PRN for CONSTIPATION, (Reported) Menthol (Biofreeze) 118 Ml Gel..ml., 1 APLCT TOP PRN PRN for PAINFUL JOINTS, (Reported) Nystatin (Nystatin Powder) 15 Gm Powder, 1 APLCT TOP BID PRN for EXCORIATION, (Reported) APPLY UNDER BREASTS AND SKIN FOLDS Simethicone (Simethicone) 80 Mg Tab.chew, 80 MG PO for GAS PAIN, (Reported) Tramadol HCl (Ultram) 50 Mg Tablet, 50 MG PO Q6H PRN for PAIN, (Reported) guaiFENesin (Diabetic Tussin Ex) 100 Mg/5 Ml Liquid, 10 ML PO Q6H PRN for COUGH, (Reported) Allergies Coded Allergies: NSAIDS (Non-Steroidal Anti-Inflamma (Unverified Allergy, Unknown, 06/29/18) Penicillins (Verified Allergy, Unknown, 06/29/18) chlorpheniramine (Verified Allergy, Unknown, 06/29/18) codeine (Verified Allergy, Unknown, 06/29/18) cortisone (Unverified Allergy, Unknown, 06/29/18) erythromycin base (Verified Allergy, Unknown, 06/29/18) Past Medical History Medical History osteoarthritis hypertension HFpEF EDVIN on nightly CPAP Afib DM Hyperlipidemia Morbid obesity Dependent edema GERD Gout Surgical History Appendectomy Ovarian cyst removal Family History Significant Family History: No pertinent family hx Social History * Smoker: Denies Alcohol: Denies Drugs: denies Recent Travel/Sick Contacts: Denies: Recent travel, Recent sick contacts Psychosocial History: No pertinent psych hx Brought in from [facility] A-FIB/[facility] A-FIB History Current/History of A-Fib/PAF?: Yes Current PO Anticoag Therapy: Yes Age/Risk Factor Scoring [facility]SV[facility]: [facility] Response (Comments) Value Age Risk Factor Age >/= 75 years old 2 Gender Risk Factor Female 1 Hx of CHF Yes 1 Hx of HTN Yes 1 Hx of Diabetes Yes 1 Hx of Vascular Disease Yes 1 Total 7 Treatment Treatment ordered: Dabigatran Review of Systems Constitutional: Denies: Chills, Fever, Night Sweats Eyes: Denies: Pain, Vision change ENT: Denies: Head Aches, Ear Pain, Dysphagia Skin: Denies: Rash, Lesions, Breakdown Pulmonary: Reports: Pleuritic Chest Pain (chest wall pain when she coughs or twists); Denies: Dyspnea, Cough Cardiovascular: Reports: Chest Pain (chest wall pain); Denies: Palpitations, Orthopnea, Paroxysmal Noc. Dyspnea, Lt Headedness Gastrointestinal: Denies: Nausea, Vomiting, Abdominal Pain, Diarrhea Genitourinary: Denies: Dysuria, Frequency, Incontinence, Retention Hematologic: Denies: Bruising, Bleeding Excessively Endocrine: Denies: Polydipsia, Polyphagia, Polyuria, Heat Intolerance, Cold Intolerance, Other Endocrine Sx Musculoskeletal: Reports: Other Symptoms (chest wall pain) Neurological: Denies: Weakness, Numbness, Change in speech, Confusion Psych: Reports: Mood Normal; Denies: Depression, Memory Issues Physical Examination General Exam: Positive: Alert, No Acute Distress Eye Exam: Positive: PERRLA, Conjunctiva & lids normal, EOMI; Negative: Sclera icteric ENT Exam: Positive: Atraumatic, Mucous membr. moist/pink, Pharynx Normal Neck Exam: Positive: Supple; Negative: JVD, thyromegaly Chest Exam: Positive: Clear to auscultation, Normal air movement; Negative: Rales, Rhonchi, Wheezing, Diminished Heart Exam: Positive: Rate Normal, Irregular Rhythm, Normal S1, Normal S2; Negative: Murmurs Abdomen Exam: Positive: Normal bowel sounds, Soft; Negative: Tenderness, Hepatospenomegaly Extremity Exam: Positive: Normal pulses; Negative: Clubbing, Cyanosis, Edema, Tenderness, Swelling Skin Exam: Positive: Nl turgor and temperature; Negative: Breakdown, Lesion Neuro Exam: Positive: Normal Gait, Normal Speech, Cranial Nerves 3-12 NL, Reflexes 2+ Psych Exam: Positive: Mental status NL, Mood NL, Oriented x 3 Vital Signs Vital Signs Date Time Temp Pulse Resp B/P (MAP) Pulse Ox O2 Delivery O2 Flow Rate FiO2 02/10/19 08:22 97.7 83 18 145/68 (93) 99 Nasal Cannula 2.0 Laboratory Data Labs 24H Laboratory Tests 2 02/10/19 05:38: Immature Granulocyte % (Auto) 0.4, Neutrophils (%) (Auto) 75.2H, Lymphocytes (%) (Auto) 16.0L, Monocytes (%) (Auto) 6.7H, Eosinophils (%) (Auto) 1.5, Basophils (%) (Auto) 0.2, Neutrophils # (Auto) 6.9, Lymphocytes # (Auto) 1.5, Monocytes # (Auto) 0.6, Eosinophils # (Auto) 0.1, Basophils # (Auto) 0.0, Nucleated Red Blood Cells % (auto) 0.0, Anion Gap 9, Glomerular Filtration Rate 31.0L, Calcium Level 9.9, Total Bilirubin 0.4, Direct Bilirubin < 0.1, Aspartate Amino Transf (AST/SGOT) 23, Alanine Aminotransferase (ALT/SGPT) 19, Alkaline Phosphatase 65, Total Creatine Kinase 90, Creatine Kinase MB 1.2, Creatine Kinase MB Relative Index 1.33, Troponin I < 0.02, Total Protein 6.8, Albumin 3.4, Albumin/Globulin Ratio 1.00, Thyroid Stimulating Hormone (TSH) 3.130, Free Thyroxine 1.04 02/10/19 13:48: Bedside Glucose (Misc Panel) 101 CBC/BMP Laboratory Tests 02/10/19 05:38 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 Mechanical fall: -No evidence of acute cardiac etiology -No orthostasis -PT eval ordered Rib fracture pain: -Tylenol 1000mg Q6H PRN -Tramadol 50Q6H for severe pain -Declined opioid therapies DM: -30 BID levemir -SSI -hypoglycemia protocol -FSBG AC/HS -hold home metformin Hyperlipidemia: -continue home lipitor A fib: -continue dabigatran 75 BID -continue digoxin 0.25Q2D -continue bisoprolol 5QHS HFpEF: -continue aldactone, bisoprolol GERD: -continue omeprazole QD and simthecone BID PRN Chronic pain complaints: -gabapentin 200 QHS for neuropathy -capsaicin cream Fe deficiency anemia: -continue daily iron supplement 324mg Hypertension: -continue home bisoprolol Gout: -continue home febuxostat Vit D deficiency: -continue home oscal CKD: Cr at recent baseline -will monitor EDVIN: -CPAP QHS on home settings DVT ppx: on dabigatran Diet: consistent carb Dispo: floor with ongoing pain control efforts and PT eval Plan / VTE VTE Prophylaxis Ordered?: Yes LAILA HENRY MD Feb 10, 2019 15:46
[2019-02-10] MEDS: DABIGATRAN ETEXILATE 75 MG CAP (PRADAXA) PO SCH (21:48)
[2019-02-10] MEDS: POLYVINYL ALCOHOL OPHTH SOLN 15 ML(LIQUITEARS) OU SCH (21:48)
[2019-02-10] MEDS: GABAPENTIN 100 MG CAP PO SCH (21:48)
[2019-02-10] MEDS: OCUVITE 1 TAB PO SCH (21:48)
[2019-02-10] MEDS: bisoproloL fumarate 5 MG TAB PO SCH (21:51)
[2019-02-10] MEDS: ATORVASTATIN 20 MG TAB PO SCH (21:51)
[2019-02-10 22:00] VITALS: BP 123/60
[2019-02-11] MEDS: traMADol 50 MG TAB PO PRN ×2 (02:35→11:00)
[2019-02-11 06:00] VITALS: BP 141/84
[2019-02-11 07:01] LABS: HEMATOCRIT 31.5 % (36.0-47.0); HEMOGLOBIN 10.4 g/dl (12.0-15.5); MEAN CORPUSCULAR HEMOGLOBIN 30.7 pg (27.0-33.0); MEAN CORPUSCULAR VOLUME 92.9 fl (80.0-96.0); PLATELET COUNT, AUTOMATED 177 10^3/uL (150-450); RED BLOOD COUNT 3.39 10^6/uL (4.00-5.40); WHITE BLOOD COUNT 8.6 10^3/uL (4.0-10.0)
[2019-02-11] MEDS: HumaLOG INSULIN (NovoLOG) PER UNIT SC SCH ×4 (07:30→20:40)
[2019-02-11 07:44] LABS: CALCIUM LEVEL 10.2 MG/DL (8.8-10.2); CREATININE FOR GFR 1.39 MG/DL (0.55-1.30); GLOMERULAR FILTRATION RATE 38.5 (>32); POTASSIUM SERUM 3.4 MEQ/L (3.5-5.1)
[2019-02-11] MEDS ORDERED: POTASSIUM CHLORIDE 10 MEQ SR TABLET PO ONE (08:15)
--- NOTE | 2019-02-11 08:30 | IPNPDOC ---
Text Note Date of Service The patient was seen on 02/11/19. NOTE Subjective: -Feels ok when she does not move, is looking forward to being up and trying to wallk and do activity today -Tylenol seems to be working ok for now, continues to express no desire for stronger pain medication Objective General: Morbidly obese, NAD Eyes: anicteric, no pallor or injection, PERRLA, EOMI ENT: MMM Neck: supple, no JVD Chest: CTAB, breathing comfortably on room air, left lower, lateral chest wall pain on palpation Cardiac: Irregularly irregular, rate normal, no murmurs Abd: Obese, normoactive, soft, NTND Ext: WWP, no LE edema Neuro: AOx3, hard of hearing (hearing aids at bedside table), moving all extremities spontaneously, no facial droop, speech clear without dysarthria, cranial nerves 2-12 grossly intact Psych: AOx3 Labs: Reviewed, improving Cr, stable anemia, see below: WBC 8.6 Hgb 10.4 Hct 31.5 Platelets 177 K 3.4 Cr 1.39 Imaging: no new imaging 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 after suffering a mechanical fall and found to have a new left 11th rib fracture c/b significant pain now admitted for pain control. Mechanical fall: -No evidence of acute cardiac etiology -No orthostasis -PT eval ordered Rib fracture pain: -Tylenol 1000mg Q6H PRN -Tramadol 50Q6H for severe pain -Declined opioid therapies DM: -30 BID levemir -SSI -hypoglycemia protocol -FSBG AC/HS -continue holding home metformin Hyperlipidemia: -continue home lipitor A fib: -continue dabigatran 75 BID -continue digoxin 0.25Q2D -continue bisoprolol 5QHS HFpEF: -continue aldactone, bisoprolol GERD: -continue omeprazole QD and simthecone BID PRN Chronic pain complaints: -gabapentin 200 QHS for neuropathy -capsaicin cream Fe deficiency anemia: -continue daily iron supplement 324mg Hypertension: -continue home bisoprolol Gout: -continue home febuxostat Vit D deficiency: -continue home oscal CKD: Cr at recent baseline -will monitor EDVIN: -CPAP QHS on home settings DVT ppx: on dabigatran Diet: consistent carb Dispo: pending PT eval VS,Fishbone, I+O VS, Fishbone, I+O Laboratory Tests 02/11/19 05:33 Vital Signs Date Time Temp Pulse Resp B/P (MAP) Pulse Ox O2 Delivery O2 Flow Rate FiO2 02/11/19 06:00 98.2 80 18 141/84 (103) 99 Nasal Cannula 2.0 I&O- Last 24 Hours up to 6 AM 02/11/19 06:00 Intake Total 1280 ml Output Total 0 ml Balance 1280 ml LAILA HENRY MD Feb 11, 2019 08:30
[2019-02-11] MEDS: OMEPRAZOLE 20 MG CAP PO SCH (09:14)
[2019-02-11] MEDS: SPIRONOLACTONE 25 MG TAB PO SCH (09:14)
[2019-02-11] MEDS: CALCIUM/VITAMIN D 500 MG TAB PO SCH (09:14)
[2019-02-11] MEDS: CYANOCOBALAMIN 500 MCG TAB PO SCH (09:15)
[2019-02-11] MEDS: DABIGATRAN ETEXILATE 75 MG CAP (PRADAXA) PO SCH ×2 (09:15→21:16)
[2019-02-11] MEDS: OCUVITE 1 TAB PO SCH ×2 (09:15→21:16)
[2019-02-11] MEDS: TORSEMIDE 20 MG TAB PO SCH ×2 (09:15→16:07)
[2019-02-11] MEDS: DOCUSATE SODIUM 100 MG CAP PO SCH (09:15)
[2019-02-11] MEDS: POLYVINYL ALCOHOL OPHTH SOLN 15 ML(LIQUITEARS) OU SCH ×2 (09:16→21:17)
[2019-02-11] MEDS: DIGOXIN 0.125 MG TAB PO SCH (09:17)
[2019-02-11] MEDS: LEVEMIR (INSULIN DETEMIR) 1 UNITS/0.01ML SC SCH ×2 (10:53→21:17)
[2019-02-11 14:00] VITALS: BP 131/60
[2019-02-11] MEDS: FEBUXOSTAT 40 MG TABLET (ULORIC) PO SCH (16:07)
[2019-02-11] MEDS: GABAPENTIN 100 MG CAP PO SCH (21:15)
[2019-02-11] MEDS: ATORVASTATIN 20 MG TAB PO SCH (21:15)
[2019-02-11] MEDS: bisoproloL fumarate 5 MG TAB PO SCH (21:16)
[2019-02-11] MEDS: ACETAMINOPHEN 500 MG TAB PO PRN (21:18)
[2019-02-11 22:00] VITALS: BP 134/61
[2019-02-12] MEDS: ACETAMINOPHEN 500 MG TAB PO PRN ×4 (03:59→23:11)
[2019-02-12 06:00] VITALS: BP 131/62
[2019-02-12] MEDS: SPIRONOLACTONE 25 MG TAB PO SCH (08:29)
[2019-02-12] MEDS: HumaLOG INSULIN (NovoLOG) PER UNIT SC SCH ×4 (08:29→21:41)
[2019-02-12] MEDS: LIDOCAINE 5% (LIDODERM) PATCH TD SCH (08:30)
[2019-02-12] MEDS: OMEPRAZOLE 20 MG CAP PO SCH (08:30)
[2019-02-12] MEDS: CALCIUM/VITAMIN D 500 MG TAB PO SCH (08:30)
[2019-02-12] MEDS: CYANOCOBALAMIN 500 MCG TAB PO SCH (08:31)
[2019-02-12] MEDS: OCUVITE 1 TAB PO SCH ×2 (08:31→21:39)
[2019-02-12] MEDS: TORSEMIDE 20 MG TAB PO SCH ×2 (08:31→16:23)
[2019-02-12] MEDS: POLYVINYL ALCOHOL OPHTH SOLN 15 ML(LIQUITEARS) OU SCH ×2 (08:31→21:41)
[2019-02-12] MEDS: DOCUSATE SODIUM 100 MG CAP PO SCH (08:31)
[2019-02-12] MEDS: DABIGATRAN ETEXILATE 75 MG CAP (PRADAXA) PO SCH ×2 (08:31→21:39)
[2019-02-12] MEDS: LEVEMIR (INSULIN DETEMIR) 1 UNITS/0.01ML SC SCH ×2 (08:32→21:41)
[2019-02-12 14:00] VITALS: BP 163/72
--- NOTE | 2019-02-12 15:32 | IPNPDOC ---
Text Note Date of Service The patient was seen on 02/12/19. NOTE Subjective: -Feels ok when she does not move, has pain when she sits up, twists or walk but describes it as "bearable" -Requesting that I stop the tramadol she really dislikes how it makes her feel, reports improvement with the 5% lido patch Objective General: Morbidly obese, NAD Eyes: anicteric, no pallor or injection, PERRLA, EOMI ENT: MMM Neck: supple, no JVD Chest: CTAB, breathing comfortably on room air, left lower, lateral chest wall pain on palpation Cardiac: Irregularly irregular, rate normal, no murmurs Abd: Obese, normoactive, soft, NTND Ext: WWP, no LE edema Neuro: AOx3, moving all extremities spontaneously, no facial droop, speech clear without dysarthria, cranial nerves 2-12 grossly intact Psych: AOx3 Labs: Reviewed, improving Cr, stable anemia, see below: WBC 8.6 Hgb 10.4 Hct 31.5 Platelets 177 K 3.4 Cr 1.39 Imaging: no new imaging 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 Mechanical fall: -No evidence of acute cardiac etiology -No orthostasis -PT eval ordered Rib fracture pain: -Tylenol 1000mg Q6H PRN -Discontinued Tramadol 50Q6H for severe pain due to undesired side effects -start lidocaine patch 5% on L lateral chest wall -Declined opioid therapies DM: -30 BID levemir -SSI -hypoglycemia protocol -FSBG AC/HS -continue holding home metformin Hyperlipidemia: -continue home lipitor A fib: -continue dabigatran 75 BID -continue digoxin 0.25Q2D -continue bisoprolol 5QHS HFpEF: -continue aldactone, bisoprolol GERD: -continue omeprazole QD and simthecone BID PRN Chronic pain complaints: -gabapentin 200 QHS for neuropathy -capsaicin cream Fe deficiency anemia: -continue daily iron supplement 324mg Hypertension: -continue home bisoprolol Gout: -continue home febuxostat Vit D deficiency: -continue home oscal CKD: Cr at recent baseline -will monitor EDVIN: -CPAP QHS on home settings DVT ppx: on dabigatran Diet: consistent carb Dispo: working with PT likely to return to [facility] VS,Fishbone, I+O VS, Fishbone, I+O Vital Signs Date Time Temp Pulse Resp B/P (MAP) Pulse Ox O2 Delivery O2 Flow Rate FiO2 02/12/19 14:00 96.3 70 21 163/72 (102) 93 Room Air 02/12/19 06:00 2.0 I&O- Last 24 Hours up to 6 AM 02/12/19 06:00 Intake Total 1180 ml Output Total 0 ml Balance 1180 ml LAILA HENRY MD Feb 12, 2019 15:32
[2019-02-12] MEDS: FEBUXOSTAT 40 MG TABLET (ULORIC) PO SCH (16:22)
[2019-02-12] MEDS: ATORVASTATIN 20 MG TAB PO SCH (21:39)
[2019-02-12] MEDS: GABAPENTIN 100 MG CAP PO SCH (21:39)
[2019-02-12] MEDS: bisoproloL fumarate 5 MG TAB PO SCH (21:40)
[2019-02-12] MEDS: **NOTE PATIENT COMMENT** MISC XX SCH (21:42)
[2019-02-12 22:00] VITALS: BP 145/74
[2019-02-13] MEDS: ACETAMINOPHEN 500 MG TAB PO PRN ×4 (05:28→23:41)
[2019-02-13 06:00] VITALS: BP 131/60
[2019-02-13] MEDS ORDERED: FERROUS GLUCONATE 324 MG TAB PO SCH (06:00)
[2019-02-13 06:06] LABS: HEMATOCRIT 31.8 % (36.0-47.0); HEMOGLOBIN 10.4 g/dl (12.0-15.5); MEAN CORPUSCULAR HEMOGLOBIN 30.9 pg (27.0-33.0); MEAN CORPUSCULAR HGB CONC 32.7 g/dl (32.0-36.5); MEAN CORPUSCULAR VOLUME 94.4 fl (80.0-96.0); PLATELET COUNT, AUTOMATED 187 10^3/uL (150-450); RED BLOOD COUNT 3.37 10^6/uL (4.00-5.40); WHITE BLOOD COUNT 8.4 10^3/uL (4.0-10.0)
[2019-02-13 06:31] LABS: CALCIUM LEVEL 9.9 MG/DL (8.8-10.2); CREATININE FOR GFR 1.72 MG/DL (0.55-1.30); GLOMERULAR FILTRATION RATE 30.1 (>32); POTASSIUM SERUM 3.6 MEQ/L (3.5-5.1)
[2019-02-13] MEDS: LEVEMIR (INSULIN DETEMIR) 1 UNITS/0.01ML SC SCH ×2 (08:58→21:41)
[2019-02-13] MEDS: LIDOCAINE 5% (LIDODERM) PATCH TD SCH (08:58)
[2019-02-13] MEDS: HumaLOG INSULIN (NovoLOG) PER UNIT SC SCH ×4 (09:00→21:00)
[2019-02-13] MEDS: OCUVITE 1 TAB PO SCH ×2 (09:10→21:41)
[2019-02-13] MEDS: OMEPRAZOLE 20 MG CAP PO SCH (09:10)
[2019-02-13] MEDS: DOCUSATE SODIUM 100 MG CAP PO SCH (09:11)
[2019-02-13] MEDS: CYANOCOBALAMIN 500 MCG TAB PO SCH (09:11)
[2019-02-13] MEDS: DABIGATRAN ETEXILATE 75 MG CAP (PRADAXA) PO SCH ×2 (09:11→21:40)
[2019-02-13] MEDS: TORSEMIDE 20 MG TAB PO SCH ×2 (09:11→16:11)
[2019-02-13] MEDS: CALCIUM/VITAMIN D 500 MG TAB PO SCH (09:14)
[2019-02-13] MEDS: POLYVINYL ALCOHOL OPHTH SOLN 15 ML(LIQUITEARS) OU SCH ×2 (09:14→21:41)
[2019-02-13] MEDS: SPIRONOLACTONE 25 MG TAB PO SCH (09:14)
[2019-02-13] MEDS: DIGOXIN 0.125 MG TAB PO SCH (09:14)
[2019-02-13 14:00] VITALS: BP 185/69
[2019-02-13] MEDS: FEBUXOSTAT 40 MG TABLET (ULORIC) PO SCH (16:11)
[2019-02-13] MEDS ORDERED: lisinopriL 10 MG TAB PO ONE (19:00)
--- NOTE | 2019-02-13 19:28 | IPNPDOC ---
Date Seen The patient was seen on 02/13/19. Progress Note SUBJECTIVE: Patient complaints of continued soreness in her back over rib fracture but ot herwise no other complaints. BP noted to be elevated this afternoon. Patient only wants Tylenol for pain at this time. Cr fluctuating 1.72 today. Saturating well on 2L NC. OBJECTIVE PHYSICAL EXAMINATION: VITAL SIGNS: Please see below. General: Mild distress, Alert Eyes: Normal sclera, EOMI, KALEE HENT: Atraumatic Cardiovascular: Normal rate, normal rhythm. Pulmonary: Clear to auscultation b/l, no wheezing GI: Soft, nontender, nondistended Skin: Warm and dry Neuro: CN grossly intact. No focal deficits. Psych: oriented x 3 LABORATORY DATA, IMAGING STUDIES, MICROBIOLOGY: Please see below. DVT prophylaxis ordered?: On Dabigatran ASSESSMENT AND PLAN: 1. Mechanical fall - no orthostasis or acute cardiac etiology. - c/w PT. 2. Rib fracture - Pain control. Tylenol and Lidocaine patch. - Severe pain but patient declined escalation of therapy including tramadol and opioids. 3. DM - c/w Levemir 30 BID. - monitor BS ACHS. Hold metformin. 4. Afib - c/w Dabigatran, digoxin and bisoprolol. 5. HTN - c/w bisoprolol. - episode of HTN today, suspect that pain could be a contributing factor. - Monitor and adjust med if persistently elevated. 6. Gout - c/w home febuxostat. 7. CKD 3 - fluctuating kidney functions, continue to monitor. 8. EDVIN - night CPAP with home settings. DISPOSITION: [facility] once medically clear. [facility]&O Vital Signs Date Time Temp Pulse Resp B/P (MAP) Pulse Ox O2 Delivery O2 Flow Rate FiO2 02/13/19 19:00 184/79 02/13/19 14:00 97.8 72 18 93 Nasal Cannula 2.0 I&O- Last 24 Hours up to 6 AM 02/13/19 06:00 Intake Total 1200 ml Output Total 0 ml Balance 1200 ml Laboratory Data 24H LABS Laboratory Tests 2 02/12/19 20:56: Bedside Glucose (Misc Panel) 271H 02/13/19 05:25: Nucleated Red Blood Cells % (auto) 0.0, Anion Gap 7L, Glomerular Filtration Rate 30.1L, Calcium Level 9.9 02/13/19 11:48: Bedside Glucose (Misc Panel) 257H 02/13/19 16:54: Bedside Glucose (Misc Panel) 219H CBC/BMP Laboratory Tests 02/13/19 05:25 ZOIE LANDAVERDE MD Feb 13, 2019 19:28
[2019-02-13 21:40] VITALS: BP 147/66
[2019-02-13] MEDS: ATORVASTATIN 20 MG TAB PO SCH (21:40)
[2019-02-13] MEDS: GABAPENTIN 100 MG CAP PO SCH (21:40)
[2019-02-13] MEDS: bisoproloL fumarate 5 MG TAB PO SCH (21:40)
[2019-02-13] MEDS: **NOTE PATIENT COMMENT** MISC XX SCH (21:41)
[2019-02-13 22:00] VITALS: BP 147/66
[2019-02-14 06:00] VITALS: BP 136/74
[2019-02-14 06:23] LABS: HEMATOCRIT 31.6 % (36.0-47.0); HEMOGLOBIN 10.3 g/dl (12.0-15.5); MEAN CORPUSCULAR HEMOGLOBIN 30.2 pg (27.0-33.0); MEAN CORPUSCULAR HGB CONC 32.6 g/dl (32.0-36.5); MEAN CORPUSCULAR VOLUME 92.7 fl (80.0-96.0); PLATELET COUNT, AUTOMATED 197 10^3/uL (150-450); RED BLOOD COUNT 3.41 10^6/uL (4.00-5.40); WHITE BLOOD COUNT 8.2 10^3/uL (4.0-10.0)
[2019-02-14 06:44] LABS: CALCIUM LEVEL 9.8 MG/DL (8.8-10.2); CREATININE FOR GFR 1.63 MG/DL (0.55-1.30); GLOMERULAR FILTRATION RATE 32.1 (>32); POTASSIUM SERUM 3.5 MEQ/L (3.5-5.1)
[2019-02-14] MEDS: HumaLOG INSULIN (NovoLOG) PER UNIT SC SCH ×2 (08:28→12:02)
[2019-02-14] MEDS: ACETAMINOPHEN 500 MG TAB PO PRN (08:31)
[2019-02-14] MEDS: LIDOCAINE 5% (LIDODERM) PATCH TD SCH (08:31)
[2019-02-14 09:15] VITALS: BP 132/64
[2019-02-14] MEDS: LEVEMIR (INSULIN DETEMIR) 1 UNITS/0.01ML SC SCH (11:56)
[2019-02-14] MEDS: SPIRONOLACTONE 25 MG TAB PO SCH (11:57)
[2019-02-14] MEDS: CYANOCOBALAMIN 500 MCG TAB PO SCH (11:58)
[2019-02-14] MEDS: TORSEMIDE 20 MG TAB PO SCH (11:59)
[2019-02-14] MEDS: OMEPRAZOLE 20 MG CAP PO SCH (11:59)
[2019-02-14] MEDS: DABIGATRAN ETEXILATE 75 MG CAP (PRADAXA) PO SCH (12:00)
[2019-02-14] MEDS: DOCUSATE SODIUM 100 MG CAP PO SCH (12:00)
[2019-02-14] MEDS: OCUVITE 1 TAB PO SCH (12:00)
[2019-02-14] MEDS: CALCIUM/VITAMIN D 500 MG TAB PO SCH (12:01)
[2019-02-14] MEDS: POLYVINYL ALCOHOL OPHTH SOLN 15 ML(LIQUITEARS) OU SCH (12:01)
--- NOTE | 2019-02-14 20:26 | DS.PDOC ---
Discharge Summary General Date of Admission Feb 10, 2019 at 07:09 Date of Discharge 02/14/19 Discharge Summary PROCEDURES PERFORMED DURING STAY: [None]. ADMITTING DIAGNOSES: 1. Mechanical fall resulting in rib fracture 2. IDDM 3. HLD 4. Afib 5. HFpEF 6. GERD 7. Chronic pain 8. HTN 9. Gout 10. CKD 11. EDVIN DISCHARGE DIAGNOSES: 1. Mechanical fall resulting in rib fracture 2. IDDM 3. HLD 4. Afib 5. HFpEF 6. GERD 7. Chronic pain 8. HTN 9. Gout 10. CKD 11. EDVIN COMPLICATIONS/CHIEF COMPLAINT: Rib Fracture. 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 In the ED initial vitals were BP 161/72, T 97.8, HR 72, RR20 and she was AOx3 reporting that she had fallen onto her left side with associated left sided especially lateral chest area pain. Initial work up was notable for a chest CT that showed a new left 11th rib posterior lateral rib fracture as well as old left 10th and 5th rib fractures, while CT A/P showed no injuries but noted hepatic cysts of which the largest was calcified and 5.7x5cm, stable splenic lesions and sigmoid diverticulosis, while a hip/pelvix XR showed no fracture. Labs showed WBC 9.1, Hgb 10.6, Hct 33.3, platelets 188, Na 141, K 4.8, Cr 1.68, and normal LFTs, while EKG was non-ischemic, troponin was negative and TSH was 3.1 with a free T4 of 1.04. She was given tylenol and expressed that she would like to be given tylenol only and no narcotic pain medications at this time. She is now being admitted to medicine to manage her rib fracture pain and evaluation by physical therapy." HOSPITAL COURSE: Patient was treated for pain with some improvement. She has been very hesitant about taking strong medications, has only been taking Tylenol, think that pain is tolerable and trying to avoid narcotics or even tramadol as much as possible. Patient has no other complaints apart from pain and has been working well with PT. To discharge to [facility] and f/u PMD within 1 week. DISCHARGE MEDICATIONS: Please see below. ALLERGIES: Please see below. PHYSICAL EXAMINATION ON DISCHARGE: VITAL SIGNS: Please see below. General: Mild distress, Alert Eyes: Normal sclera, EOMI, KALEE HENT: Atraumatic Cardiovascular: Normal rate, normal rhythm. Pulmonary: Clear to auscultation b/l, no wheezing GI: Soft, nontender, nondistended Skin: Warm and dry Neuro: CN grossly intact. No focal deficits. Psych: oriented x 3 LABORATORY DATA: Please see below. IMAGING: Hip/pelvis XR- IMPRESSION: No fracture or dislocation. Chest CT- IMPRESSION: 1. Acute posterolateral left 11th rib fracture. 2. Old posterior left 10th and lateral right fifth rib fractures. 3. Mild chronic interstitial lung disease. Additionally noted is mild diffuse interlobular septal thickening which could be secondary to an element of interstitial edema. 4. 2-3 mm left upper lobe subpleural groundglass nodule. No routine follow-up is indicated. (Loren et al., Fleischner Society, 2017) 5. Nonspecific prominent mediastinal and left axillary lymph nodes. These could be reactive in nature however other underlying etiologies cannot be excluded. Given the presence of a left axillary lymph node, correlation of the left breast to exclude malignancy is suggested. Abdomen/pelvis CT- IMPRESSION: 1. No definite CT evidence of traumatic abdominal or pelvic injuries, although evaluation is limited due to lack of IV contrast. 2. Hepatic cysts with the largest cyst is at the dome of the liver measuring 5.7 x 5.0 cm demonstrating mural calcification and slightly heterogeneous internal density. Further characterization with ultrasound or MRI is recommended. 3. Splenic hypodense lesions slightly higher than simple fluid density, not completely characterized and grossly unchanged since the prior exam. These could represent cysts or benign lesions such as hemangiomas. Further characterization with MRI may be obtained. 4. 1.3 cm left mid renal pole dense nodule, not clearly seen on the prior exam. This could represent a cyst containing proteinaceous material or blood products. This is commensurate with Bosniak 2 cyst. Followup MRI in 6-12 months is suggested. 5. Large anterior right lower abdominal wall hernia containing multiple small and large bowel loops with no evidence of bowel obstruction and no CT signs of strangulation. 6. Marked sigmoid colon diverticulosis. 7. Lumbar spine scoliosis with extensive multilevel lumbar spine DJD with grade 1-2 anterolisthesis of L4 on L5 ACTIVITY: [As tolerated]. DIET: Consistent carbohydrate DISCHARGE PLAN: c/w pain control f/u PCP within 1 week DISPOSITION: [facility]. DISCHARGE INSTRUCTIONS: c/w pain control f/u PCP within 1 week ITEMS TO FOLLOWUP ON ON OUTPATIENT: None DISCHARGE CONDITION: [Stable]. TIME SPENT ON DISCHARGE: 34 minutes. Vital Signs/I&Os Vital Signs Date Time Temp Pulse Resp B/P (MAP) Pulse Ox O2 Delivery O2 Flow Rate FiO2 02/14/19 10:45 2.0 02/14/19 09:15 97.4 82 17 132/64 (86) 93 Room Air I&O- Last 24 Hours up to 6 AM 02/14/19 06:00 Intake Total 820 ml Output Total 400 ml Balance 420 ml Laboratory Data Labs 24H Laboratory Tests 2 02/13/19 21:04: Bedside Glucose (Misc Panel) 193H 02/14/19 05:26: Nucleated Red Blood Cells % (auto) 0.0, Anion Gap 8, Glomerular Filtration Rate 32.1, Calcium Level 9.8 02/14/19 11:54: Bedside Glucose (Misc Panel) 235H CBC/BMP Laboratory Tests 02/14/19 05:26 FSBS Laboratory Tests Test 02/13/19 21:04 02/14/19 11:54 Range/Units Bedside Glucose (Misc Panel) 193 235 83-110 MG/DL Discharge Medications Scheduled Acetaminophen (Tylenol Arthritis) 650 Mg Tablet.er, 1,300 MG PO QHS, (Reported) Atorvastatin Calcium (Lipitor) 20 Mg Tablet, 20 MG PO QHS, (Reported) Bisoprolol Fumarate (Bisoprolol Fumarate) 5 Mg Tablet, 5 MG PO QHS, (Reported) Calcium Carbonate/Vitamin D3 (Calcium 500-Vit D3 200 Caplet) 1 Each Tablet, 1 TAB PO DAILY, (Reported) Cyanocobalamin (Vitamin B-12) (Vitamin B-12) 1,000 Mcg Tablet, 1,000 MCG PO DAILY, (Reported) Cyclosporine (Restasis) 0.05% Droperette, 1 DROP OU BID, (Reported) Dabigatran Etexilate Mesylate (Pradaxa) 75 Mg Capsule, 75 MG PO BID, (Reported) AT 0900 AND 1700 Digoxin (Digoxin) 125 Mcg Tablet, 125 MCG PO Q2D, (Reported) Docusate Sodium (Colace) 100 Mg Capsule, 100 MG PO DAILY, (Reported) Doxercalciferol (Doxercalciferol) 2.5 Mcg Capsule, 2.5 MCG PO DAILY, (Reported) AT 1700 WITH 0.5 MCG DOSE Doxercalciferol (Doxercalciferol) 0.5 Mcg Capsule, 0.5 MCG PO DAILY, (Reported) AT 1700 WITH 2.5 MCG DOSE Ergocalciferol (Vitamin D2) (Drisdol) 50,000 Unit Capsule, 50,000 UNIT PO QMONTH, (Reported) ON THE 4TH OF THE MONTH Febuxostat (Uloric) 40 Mg Tablet, 40 MG PO QPM, (Reported) AT 1600 Ferrous Gluconate (Ferrous Gluconate) 324 Mg Tablet, 324 MG PO 3XW, (Reported) ON WEDNESDAY, WEDNESDAY, AND WEDNESDAY AT 0600; WITH ORANGE JUICE ON AN EMPTY STOMACH Fluticasone/Vilanterol (Breo Ellipta 100-25 Mcg INH) 1 Each Blst.w.dev, 1 PUFF INH QPM, (Reported) AT 1600 Gabapentin (Gabapentin) 100 Mg Capsule, 200 MG PO QHS, (Reported) Insulin Glargine (Lantus) 100 Unit/1 Ml Vial, 30 UNITS SC BID, (Reported) Magnesium Chloride (Mag Delay) 64 Mg Tablet.dr, 128 MG PO DAILY, (Reported) Metformin HCl (Metformin ER Osmotic) 500 Mg Tab.er.24, 1,000 MG PO BID, (Reported) AT 1000 AND 1700 Omeprazole (Omeprazole) 40 Mg Capsule.dr, 40 MG PO DAILY, (Reported) Polyvinyl Alcohol (Artificial Tears) 15 Ml Drops, 1 DROP OU BID, (Reported) Spironolactone (Aldactone) 25 Mg Tablet, 25 MG PO DAILY, (Reported) Torsemide (Torsemide) 20 Mg Tablet, 40 MG PO BID, (Reported) Tramadol HCl (Ultram) 50 Mg Tablet, 50 MG PO QHS, (Reported) Vit A/Vit C/Vit E/Zinc/Copper (I-Abdoulaye Protect Tablet) 1 Each Tablet, 1 TAB PO BID, (Reported) Scheduled PRN Acetaminophen (Tylenol) 325 Mg Tablet, 650 MG PO Q6H PRN for ARTHRITIS PAIN, (Reported) Albuterol Sulf (Albuterol Sulfate) 2.5 Mg/3 Ml Vial.neb, 2.5 MG INH QID PRN for SHORTNESS OF BREATH, (Reported) Albuterol Sulfate (Proair Hfa) 8.5 Gm Hfa.aer.ad, 2 PUFF INH Q4H PRN for COUGH, (Reported) Capsaicin (Capsaicin) 0.025% Cream..g., 1 APLCT TOP BID PRN for FOOT PAIN, (Reported) Fexofenadine HCl (Ruba Allergy) 180 Mg Tablet, 180 MG PO QHS PRN for ALL ERGIES, (Reported) Loperamide HCl (Imodium A-D) 2 Mg Tablet, 2 MG PO PRN PRN for AFTER EACH LOOSE STOOL, (Reported) ONE TABLET AFTER EACH LOOSE STOOL AFTER INITIAL 4 MG DOSE GIVEN Loperamide HCl (Imodium A-D) 2 Mg Tablet, 2 MG PO DAILY PRN for FIRST LOOSE STOOL, (Reported) MDD 8MG Mag Hydrox/Aluminum Hyd/Simeth (Maalox Maximum Strength Susp) 355 Ml Oral.susp, 30 ML PO Q6H PRN for INDIGESTION, (Reported) Magnesium Hydroxide (Milk of Magnesia) 400 Mg/5 Ml Oral.susp, 30 ML PO Q4H PRN for CONSTIPATION, (Reported) Menthol (Biofreeze) 118 Ml Gel..ml., 1 APLCT TOP PRN PRN for PAINFUL JOINTS, (Reported) Nystatin (Nystatin Powder) 15 Gm Powder, 1 APLCT TOP BID PRN for EXCORIATION, (Reported) APPLY UNDER BREASTS AND SKIN FOLDS Simethicone (Simethicone) 80 Mg Tab.chew, 80 MG PO for GAS PAIN, (Reported) Tramadol HCl (Ultram) 50 Mg Tablet, 50 MG PO Q6H PRN for PAIN, (Reported) guaiFENesin (Diabetic Tussin Ex) 100 Mg/5 Ml Liquid, 10 ML PO Q6H PRN for COUGH, (Reported) Allergies Coded Allergies: NSAIDS (Non-Steroidal Anti-Inflamma (Unverified Allergy, Unknown, 06/29/18) Penicillins (Verified Allergy, Unknown, 06/29/18) chlorpheniramine (Verified Allergy, Unknown, 06/29/18) codeine (Verified Allergy, Unknown, 06/29/18) cortisone (Unverified Allergy, Unknown, 06/29/18) erythromycin base (Verified Allergy, Unknown, 06/29/18) ZOIE LANDAVERDE MD Feb 14, 2019 20:26
== END 2019-02-14 12:37 | DRG 948 ==
LOC: M ED 02:01 → M ED INP 07:09 → M MSPAV 08:34
PROVIDERS: ADMIT Internal Medicine; ATTEND Student in an Organized Health Care Education/Training Program
DX: G89.11 Acute pain due to trauma (principal); Z68.41 Body mass index [BMI] 40.0-44.9, adult; I50.32 Chronic diastolic (congestive) heart failure; I13.0 Hypertensive heart and chronic kidney disease with heart failure and stage 1 through stage 4 chronic kidney disease, or unspecified chronic kidney disease; S22.32XA Fracture of one rib, left side, initial encounter for closed fracture; E66.01 Morbid (severe) obesity due to excess calories; N18.3 Chronic kidney disease, stage 3 (moderate); E11.9 Type 2 diabetes mellitus without complications; M10.9 Gout, unspecified; G47.33 Obstructive sleep apnea (adult) (pediatric); I48.91 Unspecified atrial fibrillation; K21.9 Gastro-esophageal reflux disease without esophagitis; M19.90 Unspecified osteoarthritis, unspecified site; E78.5 Hyperlipidemia, unspecified; W18.30XA Fall on same level, unspecified, initial encounter; Y92.009 Unspecified place in unspecified non-institutional (private) residence as the place of occurrence of the external cause; K57.30 Diverticulosis of large intestine without perforation or abscess without bleeding; M51.36 Other intervertebral disc degeneration, lumbar region; Z88.0 Allergy status to penicillin; Z88.6 Allergy status to analgesic agent; Z88.5 Allergy status to narcotic agent; Z88.8 Allergy status to other drugs, medicaments and biological substances; E55.9 Vitamin D deficiency, unspecified

== ENCOUNTER → 2019-02-20 | Outpatient (REF) ==
[~2019-02-20] MED LIST changes: +MAGN64TA3 PO
[2019-02-20 12:28] LABS: HEMATOCRIT 32.4 % (36.0-47.0); HEMOGLOBIN 10.7 g/dl (12.0-15.5); MEAN CORPUSCULAR HEMOGLOBIN 30.8 pg (27.0-33.0); MEAN CORPUSCULAR VOLUME 93.4 fl (80.0-96.0); PLATELET COUNT, AUTOMATED 258 10^3/uL (150-450); RED BLOOD COUNT 3.47 10^6/uL (4.00-5.40); WHITE BLOOD COUNT 8.8 10^3/uL (4.0-10.0)
[2019-02-20 12:55] LABS: CALCIUM LEVEL 9.7 MG/DL (8.8-10.2); CREATININE FOR GFR 1.72 MG/DL (0.55-1.30); GLOMERULAR FILTRATION RATE 30.1 (>32); POTASSIUM SERUM 4.4 MEQ/L (3.5-5.1); PTH INTACT 48.9 PG/ML (18.5-88.0)
[2019-02-20 13:41] LABS: HEMOGLOBIN A1c 7.7 %
== END ==
PROVIDERS: ATTEND Internal Medicine
DX: N18.9 Chronic kidney disease, unspecified (principal); D64.9 Anemia, unspecified; E11.9 Type 2 diabetes mellitus without complications

== ENCOUNTER → 2019-03-23 | Outpatient (REF) | payer MEDICARE, MEDICAID ==
[~2019-03-23] MED LIST changes: +BISO5TAB14 PO; -BISO5TAB9 PO
[2019-03-23 17:06] LABS: VITAMIN B12 LEVEL > 2000 PG/ML (247-911)
[2019-03-27 10:57] LABS: PTH INTACT 10.1 PG/ML (18.5-88.0)
== END ==
LOC: M LAB REF 16:31
PROVIDERS: ATTEND Nurse Practitioner Family
DX: D50.9 Iron deficiency anemia, unspecified (principal)

== ENCOUNTER → 2019-03-29 | Outpatient (REF) | payer MEDICARE, MEDICAID ==
[2019-03-29 12:03] LABS: BASO % 0.3 % (0.0-1.0); EOS # 0.2 10^3/uL (0.0-0.5); EOS % 2.1 % (0.0-3.0); HEMATOCRIT 36.2 % (36.0-47.0); HEMOGLOBIN 11.4 g/dl (12.0-15.5); LYMPH % 26.1 % (24.0-44.0); MEAN CORPUSCULAR HEMOGLOBIN 30.3 pg (27.0-33.0); MEAN CORPUSCULAR HGB CONC 31.5 g/dl (32.0-36.5); MEAN CORPUSCULAR VOLUME 96.3 fl (80.0-96.0); MONO # 0.7 10^3/uL (0.0-0.8); NEUTROPHILS # 4.7 10^3/uL (1.5-8.5); NEUTROPHILS % 62.1 % (36.0-66.0); PLATELET COUNT, AUTOMATED 180 10^3/uL (150-450); RED BLOOD COUNT 3.76 10^6/uL (4.00-5.40); WHITE BLOOD COUNT 7.6 10^3/uL (4.0-10.0)
[2019-03-29 13:00] LABS: ALBUMIN 3.6 GM/DL (3.2-5.2); CALCIUM LEVEL 10.3 MG/DL (8.8-10.2); CREATININE FOR GFR 1.71 MG/DL (0.55-1.30); GLOMERULAR FILTRATION RATE 30.4 (>32); PHOSPHORUS LEVEL 4.1 MG/DL (2.5-4.9); POTASSIUM SERUM 4.4 MEQ/L (3.5-5.1); PTH INTACT 26.9 PG/ML (18.5-88.0)
== END ==
PROVIDERS: ATTEND Nurse Practitioner Family
DX: N18.1 Chronic kidney disease, stage 1 (principal); D63.1 Anemia in chronic kidney disease; N25.81 Secondary hyperparathyroidism of renal origin

== ENCOUNTER → 2019-06-28 | Outpatient (REF) | payer MEDICARE, MEDICAID ==
[~2019-06-28] MED LIST changes: -ARTIDRO2 OU; +POLYOPD OU
[2019-06-28 11:17] LABS: BASO % 0.5 % (0.0-1.0); EOS # 0.1 10^3/uL (0.0-0.5); EOS % 1.4 % (0.0-3.0); HEMATOCRIT 37.1 % (36.0-47.0); HEMOGLOBIN 12.4 g/dl (12.0-15.5); LYMPH # 1.3 10^3/uL (1.5-5.0); LYMPH % 17.6 % (24.0-44.0); MEAN CORPUSCULAR HEMOGLOBIN 31.3 pg (27.0-33.0); MEAN CORPUSCULAR HGB CONC 33.4 g/dl (32.0-36.5); MEAN CORPUSCULAR VOLUME 93.7 fl (80.0-96.0); MONO # 0.7 10^3/uL (0.0-0.8); MONO % 9.5 % (0.0-5.0); NEUTROPHILS # 5.4 10^3/uL (1.5-8.5); NEUTROPHILS % 70.5 % (36.0-66.0); PLATELET COUNT, AUTOMATED 185 10^3/uL (150-450); RED BLOOD COUNT 3.96 10^6/uL (4.00-5.40); WHITE BLOOD COUNT 7.6 10^3/uL (4.0-10.0)
[2019-06-28 11:21] LABS: ALBUMIN 3.5 GM/DL (3.2-5.2); CALCIUM LEVEL 9.8 MG/DL (8.8-10.2); CREATININE FOR GFR 1.64 MG/DL (0.55-1.30); GLOMERULAR FILTRATION RATE 31.9 (>32); MAGNESIUM LEVEL 2.4 MG/DL (1.8-2.4); PHOSPHORUS LEVEL 3.8 MG/DL (2.5-4.9); POTASSIUM SERUM 4.6 MEQ/L (3.5-5.1); URIC ACID 7.3 MG/DL (2.6-6.0)
[2019-06-28 11:36] LABS: PTH INTACT 42.3 PG/ML (18.5-88.0); TOTAL 25(OH) VITAMIN D 45.6 NG/ML (30.0-100.0)
== END ==
PROVIDERS: ATTEND Nurse Practitioner Family
DX: N18.3 Chronic kidney disease, stage 3 (moderate) (principal); D63.1 Anemia in chronic kidney disease; N25.81 Secondary hyperparathyroidism of renal origin; E83.42 Hypomagnesemia; E55.9 Vitamin D deficiency, unspecified

== ENCOUNTER → 2019-07-24 | Outpatient (REF) | payer MEDICARE, MEDICAID ==
[2019-07-24 12:41] LABS: BASO % 0.6 % (0.0-1.0); EOS # 0.2 10^3/uL (0.0-0.5); EOS % 2.2 % (0.0-3.0); HEMATOCRIT 32.8 % (36.0-47.0); HEMOGLOBIN 11.1 g/dl (12.0-15.5); LYMPH # 1.6 10^3/uL (1.5-5.0); MEAN CORPUSCULAR HGB CONC 33.8 g/dl (32.0-36.5); MEAN CORPUSCULAR VOLUME 94.5 fl (80.0-96.0); MONO # 0.8 10^3/uL (0.0-0.8); MONO % 11.4 % (0.0-5.0); NEUTROPHILS # 4.2 10^3/uL (1.5-8.5); NEUTROPHILS % 61.9 % (36.0-66.0); PLATELET COUNT, AUTOMATED 178 10^3/uL (150-450); RED BLOOD COUNT 3.47 10^6/uL (4.00-5.40); WHITE BLOOD COUNT 6.8 10^3/uL (4.0-10.0)
[2019-07-24 13:09] LABS: ALBUMIN 3.3 GM/DL (3.2-5.2); ALT/SGPT 25 U/L (12-78); BILIRUBIN,TOTAL 0.3 MG/DL (0.2-1.0); BLOOD UREA NITROGEN 53 MG/DL (7-18); CALCIUM LEVEL 9.5 MG/DL (8.8-10.2); CARBON DIOXIDE LEVEL 28 MEQ/L (21-32); CHLORIDE LEVEL 100 MEQ/L (98-107); CHOLESTEROL LEVEL 156 MG/DL (<200); GLOMERULAR FILTRATION RATE 26.9 (>32); GLUCOSE, FASTING 273 MG/DL (70-100); HDL CHOLESTEROL 26 MG/DL (>40); NON-HDL-C 130 MG/DL; POTASSIUM SERUM 4.1 MEQ/L (3.5-5.1); SODIUM LEVEL 137 MEQ/L (136-145); TOTAL PROTEIN 6.3 GM/DL (6.4-8.2); TRIGLYCERIDES LEVEL 595 MG/DL (<150)
[2019-07-24 13:28] LABS: HEMOGLOBIN A1c 10.1 %
== END ==
PROVIDERS: ATTEND Internal Medicine
DX: E78.5 Hyperlipidemia, unspecified (principal); D50.9 Iron deficiency anemia, unspecified; E11.40 Type 2 diabetes mellitus with diabetic neuropathy, unspecified; I13.0 Hypertensive heart and chronic kidney disease with heart failure and stage 1 through stage 4 chronic kidney disease, or unspecified chronic kidney disease

== ENCOUNTER → 2019-10-05 | Outpatient (REF) | payer MEDICARE, MEDICAID ==
[~2019-10-05] MED LIST changes: +ACET650T61 PO; -TYLE650T35 PO
[2019-11-17 11:14] LABS: BASO % 0.4 % (0.0-1.0); EOS # 0.1 10^3/uL (0.0-0.5); EOS % 1.9 % (0.0-3.0); HEMATOCRIT 34.4 % (36.0-47.0); HEMOGLOBIN 11.1 g/dl (12.0-15.5); LYMPH # 1.9 10^3/uL (1.5-5.0); LYMPH % 25.8 % (24.0-44.0); MEAN CORPUSCULAR HEMOGLOBIN 31.2 pg (27.0-33.0); MEAN CORPUSCULAR HGB CONC 32.3 g/dl (32.0-36.5); MEAN CORPUSCULAR VOLUME 96.6 fl (80.0-96.0); MONO # 0.6 10^3/uL (0.0-0.8); NEUTROPHILS # 4.6 10^3/uL (1.5-8.5); NEUTROPHILS % 63.1 % (36.0-66.0); PLATELET COUNT, AUTOMATED 176 10^3/uL (150-450); RED BLOOD COUNT 3.56 10^6/uL (4.00-5.40); WHITE BLOOD COUNT 7.3 10^3/uL (4.0-10.0)
[2019-11-19 05:04] LABS: ALBUMIN 3.2 GM/DL (3.2-5.2); CALCIUM LEVEL 9.1 MG/DL (8.8-10.2); CREATININE FOR GFR 1.84 MG/DL (0.55-1.30); GLOMERULAR FILTRATION RATE 27.9 (>32); PHOSPHORUS LEVEL 4.4 MG/DL (2.5-4.9); POTASSIUM SERUM 3.7 MEQ/L (3.5-5.1); PTH INTACT 83.2 PG/ML (18.5-88.0); URIC ACID 7.4 MG/DL (2.6-6.0)
== END ==
PROVIDERS: ATTEND Internal Medicine Nephrology
DX: N18.3 Chronic kidney disease, stage 3 (moderate) (principal); M10.9 Gout, unspecified; D63.1 Anemia in chronic kidney disease; N25.81 Secondary hyperparathyroidism of renal origin

== ENCOUNTER → 2019-10-05 | Outpatient (REF) | payer MEDICARE, MEDICAID ==
[2019-10-31 12:47] LABS: APPEARANCE, URINE CLEAR (CLEAR); BACTERIA, URINE AUTO NEGATIVE (NEGATIVE); BILIRUBIN, URINE AUTO NEGATIVE (NEGATIVE); BLOOD, URINE BLOOD NEGATIVE (NEGATIVE); COLOR, URINE YELLOW (YELLOW); GLUCOSE, URINE (UA) AUTO 3+ mg/dL (NEGATIVE); KETONE, URINE AUTO NEGATIVE (NEGATIVE); LEUKOCYTE ESTERASE, URINE AUTO NEGATIVE (NEGATIVE); NITRITE, URINE AUTO NEGATIVE (NEGATIVE); PROTEIN, URINE AUTO NEGATIVE (NEGATIVE); RBC, URINE AUTO 0 /HPF (0-3); SQUAMOUS EPITHELIAL CELL UR AU 0 /HPF (0-6); UROBILINOGEN, URINE AUTO 0.2 mg/dL (0.0-2.0); WBC, URINE AUTO 0 /HPF (0-3)
== END ==
PROVIDERS: ATTEND Internal Medicine Nephrology
DX: N18.3 Chronic kidney disease, stage 3 (moderate) (principal); M10.9 Gout, unspecified; D63.1 Anemia in chronic kidney disease; N25.81 Secondary hyperparathyroidism of renal origin

== ENCOUNTER → 2019-10-10 | Outpatient (REF) | payer MEDICARE, MEDICAID ==
[2019-11-13 21:56] LABS: APPEARANCE, URINE CLEAR (CLEAR); BACTERIA, URINE AUTO 1+ (NEGATIVE); BILIRUBIN, URINE AUTO NEGATIVE (NEGATIVE); BLOOD, URINE BLOOD NEGATIVE (NEGATIVE); COLOR, URINE STRAW (YELLOW); GLUCOSE, URINE (UA) AUTO 3+ mg/dL (NEGATIVE); KETONE, URINE AUTO NEGATIVE (NEGATIVE); LEUKOCYTE ESTERASE, URINE AUTO NEGATIVE (NEGATIVE); NITRITE, URINE AUTO NEGATIVE (NEGATIVE); PROTEIN, URINE AUTO NEGATIVE (NEGATIVE); RBC, URINE AUTO 0 /HPF (0-3); SPECIFIC GRAVITY URINE AUTO 1.007 (1.002-1.035); SQUAMOUS EPITHELIAL CELL UR AU 0 /HPF (0-6); UROBILINOGEN, URINE AUTO 0.2 mg/dL (0.0-2.0); WBC, URINE AUTO 0 /HPF (0-3)
== END ==
PROVIDERS: ATTEND Internal Medicine
DX: N18.3 Chronic kidney disease, stage 3 (moderate) (principal)

== ENCOUNTER 2019-10-25 23:55 | Emergency (ER) | payer MEDICARE, MEDICAID ==
[~2019-10-25] VITALS: Ht 157.5 cm; Wt 100.0 kg
--- NOTE | 2019-10-26 00:31 | REPVR ---
PROCEDURE INFORMATION: Exam: CT Cervical Spine Without Contrast Exam date and time: 10/26/2019 12:02 AM Age: 84 years old Clinical indication: Injury or trauma; Fall; Initial encounter; Concussion /head injury TECHNIQUE: Imaging protocol: Computed tomography images of the cervical spine without contrast. Radiation optimization: All CT scans at this facility use at least one of these dose optimization techniques: automated exposure control; mA and/or kV adjustment per patient size (includes targeted exams where dose is matched to clinical indication); or iterative reconstruction. COMPARISON: No relevant prior studies available. FINDINGS: Vertebrae: Bone island in the left lateral mass of C1. C2-C3: Mild interspace narrowing with mild anterolisthesis with degenerative changes of apophyseal joints. No spinal stenosis. There is adequate size of the neural foramen. C3-C4: Moderate interspace narrowing with slight anterolisthesis and bilateral degenerative changes of apophyseal joints. No significant spinal or foraminal stenosis. C4-C5: Moderate interspace narrowing with slight anterolisthesis and minimal posterior osteophytes and bilateral degenerative changes. No significant spinal or foraminal stenosis. C5-C6: Prominent interspace narrowing with anterior ankylosis or fusion and slight anterolisthesis. There are paracentral osteophytes and bilateral degenerative change with no significant spinal or foraminal stenosis. C6-C7: Prominent interspace narrowing with a low pedicles bilaterally. There is no significant spinal or foraminal stenosis. C7-T1: Moderate interspace narrowing with slight anterolisthesis and bilateral degenerative changes with no significant spinal or foraminal stenosis. Other bones/joints: Small right cervical rib at C7. Soft tissues: Unremarkable. Sinuses: Minimal sphenoid sinus mucosal thickening. Auditory system: Debris in the external auditory canals. IMPRESSION: 1. Multilevel degenerative disc and bony changes with no significant spinal or foraminal stenosis. 2. No acute fracture or subluxation. Electronically signed by: Hari Mixon On 10/26/2019 00:31:08 AM
--- NOTE | 2019-10-26 00:32 | REPVR ---
PROCEDURE INFORMATION: Exam: CT Head Without Contrast Exam date and time: 10/26/2019 12:02 AM Age: 84 years old Clinical indication: Injury or trauma; Fall; Initial encounter; Concussion / head injury TECHNIQUE: Imaging protocol: Computed tomography of the head without contrast. Radiation optimization: All CT scans at this facility use at least one of these dose optimization techniques: automated exposure control; mA and/or kV adjustment per patient size (includes targeted exams where dose is matched to clinical indication); or iterative reconstruction. COMPARISON: CT Head without contrast 06/29/2018 9:36 PM FINDINGS: Brain: There is mild patchy low attenuation of deep white matter. There is slight prominence of the peripheral sulci. Ventricles: There is slight prominence of the central ventricular system. Bones/joints: Unremarkable. No acute fracture. Sinuses: Sphenoid sinus mucosal thickening. Mastoid air cells: Visualized mastoid air cells are well aerated. Auditory system: Debris in the external auditory canals bilaterally. Soft tissues: Unremarkable. IMPRESSION: 1. Mild chronic ischemic white matter change and minimal atrophy which is similar to 06/29/2018. 2. Minimal sphenoid sinus disease. 3. Otherwise negative noncontrast head CT. Electronically signed by: Hari Mixon On 10/26/2019 00:32:53 AM
[2019-10-26 01:27] LABS: BASO % 0.4 % (0.0-1.0); EOS # 0.1 10^3/uL (0.0-0.5); EOS % 0.5 % (0.0-3.0); HEMATOCRIT 34.2 % (36.0-47.0); HEMOGLOBIN 11.5 g/dl (12.0-15.5); LYMPH # 1.4 10^3/uL (1.5-5.0); LYMPH % 12.4 % (24.0-44.0); MEAN CORPUSCULAR HEMOGLOBIN 31.4 pg (27.0-33.0); MEAN CORPUSCULAR HGB CONC 33.6 g/dl (32.0-36.5); MEAN CORPUSCULAR VOLUME 93.4 fl (80.0-96.0); MONO # 0.7 10^3/uL (0.0-0.8); MONO % 6.5 % (0.0-5.0); NEUTROPHILS % 79.7 % (36.0-66.0); PLATELET COUNT, AUTOMATED 158 10^3/uL (150-450); RED BLOOD COUNT 3.66 10^6/uL (4.00-5.40); WHITE BLOOD COUNT 11.3 10^3/uL (4.0-10.0)
[2019-10-26 01:41] LABS: INR 2.14; PROTHROMBIN TIME 24.4 SECONDS (11.8-14.0)
[2019-10-26 01:42] LABS: PARTIAL THROMBOPLASTIN TIME 38.2 SECONDS (25.0-38.4)
[2019-10-26 02:07] LABS: BLOOD UREA NITROGEN 60 MG/DL (7-18); CALCIUM LEVEL 9.5 MG/DL (8.8-10.2); CARBON DIOXIDE LEVEL 28 MEQ/L (21-32); CHLORIDE LEVEL 98 MEQ/L (98-107); CK-MB VALUE MASS 1.3 NG/ML (<3.6); CPK CREATINE PHOSPHOKINASE 77 U/L (26-192); CREATININE FOR GFR 2.02 MG/DL (0.55-1.30); GLUCOSE, FASTING 388 MG/DL (70-100); MB/CK RELATIVE INDEX 1.69 (< OR =4); POTASSIUM SERUM 4.1 MEQ/L (3.5-5.1); SODIUM LEVEL 134 MEQ/L (136-145); TROPONIN I < 0.02 NG/ML (< 0.10)
[2019-10-26] MEDS ORDERED: ACETAMINOPHEN TAB 650MG DOSE (2X325MG) PO ONE (03:00)
[2019-10-26 03:41] VITALS: BP 154/84
--- NOTE | 2019-11-16 13:19 | ECGEPIP ---
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
== END 2019-10-26 03:43 | disposition home or self-care (01) ==
LOC: M ED 23:55
DX: S09.90XA Unspecified injury of head, initial encounter (principal); W01.0XXA Fall on same level from slipping, tripping and stumbling without subsequent striking against object, initial encounter; Y92.129 Unspecified place in nursing home as the place of occurrence of the external cause; M50.30 Other cervical disc degeneration, unspecified cervical region; G47.33 Obstructive sleep apnea (adult) (pediatric); E11.9 Type 2 diabetes mellitus without complications; E03.9 Hypothyroidism, unspecified; Z88.0 Allergy status to penicillin; Z88.1 Allergy status to other antibiotic agents; Z88.5 Allergy status to narcotic agent; Z88.8 Allergy status to other drugs, medicaments and biological substances; Z79.01 Long term (current) use of anticoagulants; Z79.899 Other long term (current) drug therapy

== ENCOUNTER → 2020-02-16 | Outpatient (REF) | payer MEDICARE, MEDICAID | PROVIDERS: ATTEND Internal Medicine | DX: Z20.828 Contact with and (suspected) exposure to other viral communicable diseases (principal) ==

== ENCOUNTER → 2020-02-21 | Outpatient (REF) | payer MEDICARE, MEDICAID ==
[2020-02-21 18:33] LABS: INFLUENZA A AMPLIFICATION NEGATIVE (NEGATIVE); INFLUENZA B AMPLIFICATION NEGATIVE (NEGATIVE)
== END ==
PROVIDERS: ATTEND Internal Medicine
DX: Z20.828 Contact with and (suspected) exposure to other viral communicable diseases (principal)
CPT/HCPCS: 87502; U0003

== ENCOUNTER → 2020-02-26 | Outpatient (REF) | payer MEDICARE, MEDICAID | PROVIDERS: ATTEND Internal Medicine | DX: Z20.828 Contact with and (suspected) exposure to other viral communicable diseases (principal) ==

== ENCOUNTER → 2020-03-04 | Outpatient (REF) | payer MEDICARE, MEDICAID | PROVIDERS: ATTEND Internal Medicine | DX: Z20.828 Contact with and (suspected) exposure to other viral communicable diseases (principal) ==

== ENCOUNTER → 2020-03-05 | Outpatient (REF) | payer MEDICARE, MEDICAID ==
[2020-03-05 10:29] LABS: BASO % 0.3 % (0.0-1.0); EOS # 0.2 10^3/uL (0.0-0.5); EOS % 1.8 % (0.0-3.0); HEMATOCRIT 36.2 % (36.0-47.0); HEMOGLOBIN 11.2 g/dl (12.0-15.5); LYMPH # 1.9 10^3/uL (1.5-5.0); LYMPH % 21.3 % (24.0-44.0); MEAN CORPUSCULAR HEMOGLOBIN 30.4 pg (27.0-33.0); MEAN CORPUSCULAR HGB CONC 30.9 g/dl (32.0-36.5); MEAN CORPUSCULAR VOLUME 98.4 fl (80.0-96.0); MONO # 0.8 10^3/uL (0.0-0.8); MONO % 8.4 % (0.0-5.0); NEUTROPHILS # 6.2 10^3/uL (1.5-8.5); NEUTROPHILS % 67.5 % (36.0-66.0); PLATELET COUNT, AUTOMATED 196 10^3/uL (150-450); RED BLOOD COUNT 3.68 10^6/uL (4.00-5.40); WHITE BLOOD COUNT 9.1 10^3/uL (4.0-10.0)
[2020-03-05 10:49] LABS: ALBUMIN 3.6 GM/DL (3.2-5.2); BILIRUBIN,TOTAL 0.4 MG/DL (0.2-1.0); CALCIUM LEVEL 9.4 MG/DL (8.8-10.2); CREATININE FOR GFR 1.93 MG/DL (0.55-1.30); GLOMERULAR FILTRATION RATE 26.3 (>32); POTASSIUM SERUM 4.3 MEQ/L (3.5-5.1); TOTAL PROTEIN 6.6 GM/DL (6.4-8.2)
== END ==
PROVIDERS: ATTEND Internal Medicine
DX: E78.5 Hyperlipidemia, unspecified (principal)

== ENCOUNTER → 2020-03-11 | Outpatient (REF) | payer MEDICARE, MEDICAID | PROVIDERS: ATTEND Internal Medicine | DX: R32 Unspecified urinary incontinence (principal); Z20.828 Contact with and (suspected) exposure to other viral communicable diseases | CPT/HCPCS: 81001; U0003 ==

== ENCOUNTER → 2020-03-11 | Outpatient (REF) | payer MEDICARE, MEDICAID ==
[2020-03-11 18:35] LABS: APPEARANCE, URINE CLEAR (CLEAR); BACTERIA, URINE AUTO NEGATIVE (NEGATIVE); BILIRUBIN, URINE AUTO NEGATIVE (NEGATIVE); BLOOD, URINE BLOOD NEGATIVE (NEGATIVE); COLOR, URINE YELLOW (YELLOW); GLUCOSE, URINE (UA) AUTO NEGATIVE (NEGATIVE); KETONE, URINE AUTO NEGATIVE (NEGATIVE); LEUKOCYTE ESTERASE, URINE AUTO NEGATIVE (NEGATIVE); NITRITE, URINE AUTO NEGATIVE (NEGATIVE); PROTEIN, URINE AUTO NEGATIVE (NEGATIVE); RBC, URINE AUTO 0 /HPF (0-3); SPECIFIC GRAVITY URINE AUTO 1.009 (1.002-1.035); SQUAMOUS EPITHELIAL CELL UR AU 0 /HPF (0-6); UROBILINOGEN, URINE AUTO 0.2 mg/dL (0.0-2.0); WBC, URINE AUTO 2 /HPF (0-3)
== END ==
PROVIDERS: ATTEND Registered Nurse
DX: R32 Unspecified urinary incontinence (principal)

== ENCOUNTER → 2020-03-14 | Outpatient (REF) | payer MEDICARE, MEDICAID ==
[~2020-03-14] MED LIST changes: -DOXE1CAP2 PO; +DOXE2.5C PO; +HUMA100I5 SC; +LORA-674 PO; +OMEP1CAP73 PO; +ONDA4TAB6 PO; +PRES10CA2 PO; +SIME80CH5 PO; -SIME80TA PO; +TORS10TA3 PO; +XARE15TA PO; +[UNRECOGNIZED DRUG - CODE] PO
[2020-03-14 09:18] LABS: BASO % 0.3 % (0.0-1.0); EOS # 0.1 10^3/uL (0.0-0.5); EOS % 1.2 % (0.0-3.0); HEMATOCRIT 34.2 % (36.0-47.0); HEMOGLOBIN 10.5 g/dl (12.0-15.5); LYMPH # 1.8 10^3/uL (1.5-5.0); LYMPH % 16.5 % (24.0-44.0); MEAN CORPUSCULAR HEMOGLOBIN 30.3 pg (27.0-33.0); MEAN CORPUSCULAR HGB CONC 30.7 g/dl (32.0-36.5); MEAN CORPUSCULAR VOLUME 98.8 fl (80.0-96.0); MONO % 8.9 % (0.0-5.0); NEUTROPHILS # 8.1 10^3/uL (1.5-8.5); NEUTROPHILS % 72.5 % (36.0-66.0); PLATELET COUNT, AUTOMATED 220 10^3/uL (150-450); RED BLOOD COUNT 3.46 10^6/uL (4.00-5.40); WHITE BLOOD COUNT 11.1 10^3/uL (4.0-10.0)
[2020-03-14 09:45] LABS: ALBUMIN 2.5 GM/DL (3.2-5.2); CALCIUM LEVEL 8.9 MG/DL (8.8-10.2); CREATININE FOR GFR 2.22 MG/DL (0.55-1.30); GLOMERULAR FILTRATION RATE 22.4 (>32); PHOSPHORUS LEVEL 4.5 MG/DL (2.5-4.9); POTASSIUM SERUM 4.3 MEQ/L (3.5-5.1)
[2020-03-14 10:51] LABS: HEMOGLOBIN A1c 8.6 %
== END ==
PROVIDERS: ATTEND Registered Nurse
DX: N18.32 Chronic kidney disease, stage 3b (principal); I12.9 Hypertensive chronic kidney disease with stage 1 through stage 4 chronic kidney disease, or unspecified chronic kidney disease; E11.22 Type 2 diabetes mellitus with diabetic chronic kidney disease

== ENCOUNTER → 2020-03-18 | Outpatient (REF) | payer MEDICARE, MEDICAID | PROVIDERS: ATTEND Internal Medicine | DX: Z20.822 Contact with and (suspected) exposure to COVID-19 (principal) ==

== ENCOUNTER → 2020-03-25 | Outpatient (REF) | payer MEDICARE, MEDICAID | PROVIDERS: ATTEND Internal Medicine | DX: Z20.822 Contact with and (suspected) exposure to COVID-19 (principal) ==

== ENCOUNTER → 2020-04-01 | Outpatient (REF) | payer MEDICARE, MEDICAID | PROVIDERS: ATTEND Internal Medicine | DX: Z20.822 Contact with and (suspected) exposure to COVID-19 (principal) ==

== ENCOUNTER → 2020-04-03 | Outpatient (REF) | payer MEDICARE, MEDICAID ==
[2020-04-03 18:49] LABS: BACTERIA, URINE AUTO NEGATIVE (NEGATIVE); BILIRUBIN, URINE AUTO NEGATIVE (NEGATIVE); BLOOD, URINE BLOOD NEGATIVE (NEGATIVE); COLOR, URINE STRAW (YELLOW); GLUCOSE, URINE (UA) AUTO NEGATIVE (NEGATIVE); KETONE, URINE AUTO NEGATIVE (NEGATIVE); LEUKOCYTE ESTERASE, URINE AUTO NEGATIVE (NEGATIVE); NITRITE, URINE AUTO NEGATIVE (NEGATIVE); PROTEIN, URINE AUTO NEGATIVE (NEGATIVE); RBC, URINE AUTO 0 /HPF (0-3); SPECIFIC GRAVITY URINE AUTO 1.005 (1.002-1.035); SQUAMOUS EPITHELIAL CELL UR AU 0 /HPF (0-6); UROBILINOGEN, URINE AUTO 0.2 mg/dL (0.0-2.0); WBC, URINE AUTO 0 /HPF (0-3)
[2020-04-04 12:25] LABS: APPEARANCE, URINE CLEAR (CLEAR)
== END ==
LOC: M LAB REF 17:05
PROVIDERS: ATTEND Internal Medicine Nephrology
DX: I12.9 Hypertensive chronic kidney disease with stage 1 through stage 4 chronic kidney disease, or unspecified chronic kidney disease (principal); N18.32 Chronic kidney disease, stage 3b; E11.22 Type 2 diabetes mellitus with diabetic chronic kidney disease

== ENCOUNTER → 2020-04-05 | Outpatient (REF) | payer MEDICARE, MEDICAID ==
[~2020-04-05] MED LIST changes: +DOXE1CAP2 PO; -DOXE2.5C PO; -SIME80CH5 PO; +SIME80TA PO
[2020-04-05 11:21] LABS: BASO % 0.3 % (0.0-1.0); EOS # 0.2 10^3/uL (0.0-0.5); EOS % 2.4 % (0.0-3.0); HEMATOCRIT 34.5 % (36.0-47.0); HEMOGLOBIN 10.4 g/dl (12.0-15.5); LYMPH # 1.2 10^3/uL (1.5-5.0); LYMPH % 12.3 % (24.0-44.0); MEAN CORPUSCULAR HEMOGLOBIN 30.6 pg (27.0-33.0); MEAN CORPUSCULAR HGB CONC 30.1 g/dl (32.0-36.5); MEAN CORPUSCULAR VOLUME 101.5 fl (80.0-96.0); MONO # 0.7 10^3/uL (0.0-0.8); MONO % 7.4 % (0.0-5.0); NEUTROPHILS # 7.5 10^3/uL (1.5-8.5); PLATELET COUNT, AUTOMATED 210 10^3/uL (150-450); WHITE BLOOD COUNT 9.8 10^3/uL (4.0-10.0)
[2020-04-05 12:11] LABS: ALBUMIN 3.1 GM/DL (3.2-5.2); CALCIUM LEVEL 9.4 MG/DL (8.8-10.2); CREATININE FOR GFR 1.87 MG/DL (0.55-1.30); GLOMERULAR FILTRATION RATE 27.3 (>32); MAGNESIUM LEVEL 2.1 MG/DL (1.8-2.4); POTASSIUM SERUM 4.6 MEQ/L (3.5-5.1); URIC ACID 5.9 MG/DL (2.6-6.0)
[2020-04-05 13:02] LABS: PTH INTACT 93.8 PG/ML (18.5-88.0)
== END ==
PROVIDERS: ATTEND Internal Medicine Nephrology
DX: N18.32 Chronic kidney disease, stage 3b (principal); I12.9 Hypertensive chronic kidney disease with stage 1 through stage 4 chronic kidney disease, or unspecified chronic kidney disease; E11.22 Type 2 diabetes mellitus with diabetic chronic kidney disease

== ENCOUNTER 2020-04-06 16:56 | Inpatient (IN) | payer MEDICARE, MEDICAID ==
[~2020-04-06] VITALS: Ht 157.5 cm; Wt 106.8 kg
[~2020-04-06 16:56] MED LIST changes: -DOXE1CAP2 PO; +DOXE2.5C PO; -HUMA100I5 SC; -LORA-674 PO; -OMEP1CAP73 PO; -ONDA4TAB6 PO; -PRES10CA2 PO; +SIME80CH5 PO; -SIME80TA PO; -TORS10TA3 PO; -XARE15TA PO; -[UNRECOGNIZED DRUG - CODE] PO
--- OUTSIDE RECORDS SUMMARY | 2020-04-06 17:30 | CCD | Continuity of Care Document ---
Author Author Margoth GARDUNO RADIOLOGY TRANSCRIPTIONIST Organization Unknown Address [address] [place] [address] Phone [phone] Care Team Providers Care Scientific Publications Editor Name Role Phone Roni Pedraza JR, MD AUTM Unavailable Millicent Venegas ANP AUTM [phone] Fanny Garduno RADIOLOGY TRANSCRIPTIONIST AUTM [phone] Problems Active Problems Provider Date Hypothyroidism DRE Wells Onset: 01/12/2016 Vitamin D deficiency DRE Wells Onset: 01/12/2016 Hyperlipidemia Phyl DRE Li Onset: 01/12/2016 Anxiety Phyl DRE Li Onset: 01/12/2016 Obstructive sleep apnea syndrome DRE Wells Onset: 01/12/2016 Essential hypertension DRE Wells Onset: 01/12/2016 Allergic rhinitis Phyl DRE Li Onset: 01/12/2016 Gastroesophageal reflux disease Phyl DRE Li Onset: 1 03/13/2015 Gout Phyl DRE Li Onset: 01/12/2016 Chronic obstructive lung disease Phyl DRE Li Onset: 01/12/2016 Atrial fibrillation DRE Wells Onset: 01/12/2016 Type 2 diabetes mellitus DRE Wells Onset: 01/12/20 16 Heart failure DRE Wells Onset: 01/12/2016 Hypertensive heart failure DRE Wells Onset: 2015 Vitamin B deficiency DRE Wells Onset: 01/12/2016 Fall Onset: Fracture of multiple ribs Onset: 000 Fracture of rib Onset: Hypoxia Onset: Social History Type Date Description Comments Sex Unknown ETOH Use Denies alcohol use Tobacco Use Start: Unknown End: Unknown Patient is a former smoker 22 years of ppd +, quit at age 34 Allergies, Adverse Reactions, Alerts Active Allergies Reaction Severity Comments Date Chlorpheniramine 01/12/2016 Codeine 01/12/2016 Cortisone 01/12/2016 Erythromycin 01/12/2016 NSAIDs 01/12/2016 Penicillin Penicillin V 01/12/2016 Medications Active Medications SIG Qnty Indications Ordering Provide r Date Lisinopril 2.5mg Tablets 1 tablet by mouth daily 90tabs Roni Pedraza MD 02/19/2020 Famotidine 20mg Tablets 1 by mouth bid prn heartburn 90tabs Roni Pedraza MD 02/19/2020 Maalox Max [id number]/5ML Suspen aurea 30 ml by mouth as needed every six hours for GERD C florin Pedraza MD 02/19/2020 Humalog Kwikpen 100U nit/ML Solution Pen-Inject 10 units SQ before lunch and dinner 45ml Colli cinthia Pedraza MD 02/19/2020 Drisdol 1.25mg (92742 Ut) Capsules 1 tab monthly 12capxochitl Pedraza MD 01/19/2020 Nystatin Powder apply twice a day as needed to excoriated skin folds may keep at bedside and may self administer 120gm Roni Pedraza MD 01/03/[address] 2 by mouth every day (128mg) do not crush 60tabs Roni Pedraza MD 08/03 Loratadine 10mg Capsules 1 by mouth once a day 90arnolds Roni Pedraza MD 06/14/2019 Xarelto 15mg Tablets 1 by mouth every day with evening meal 90tabs Roni Pedraza MD 05/04/19 20 Icaps Capsules 1 by m outh every day 30Millicent Magdaleno FNP 04/13/2019 Flonase Allergy Relief 50mcg/Act Suspension 2 sprays per nostril every in the morning as needed 29.7ml Roni Pedraza MD 03/09/2019 Mucinex 600mg Tablets ER 12HR 1 tablet by mouth every 12 hours 60tabs Roni Pedraza MD 03/09 Bisoprolol Fumarate 5mg Tablets 1 by mouth every day 30tabs Roni Pedraza MD 03/09/2019 Capsaicin 0.025% Cream apply twice a day as needed to affected area 1tube Roni Pedraza MD 01/28/2019 Torsemide 10mg Tablets 4 by mouth bid 240tabs Roni Pedraza MD 01/27/2019 Lantus Solostar 100U nit/ML Solution Pen-Inject inject 50 units subcutaneously twice a day (new script) 30ml Roni Pedraza MD 07/05/2018 BD Autoshield Duo 30G X 5 mm Misc Use bid With Lantus 200units Millicent Venegas FNP 07/05/2018 Digoxin 125mcg Tablets 1 by mouth every other day @ 9am 30tabs Roni Pedraza MD 05/24/2018 Gabapentin 100mg Capsules 2 caps by mouth at at bedtime 60caps E11.40 Roni Pedraza MD 09/17/2016 Breo Ellipta 100-25mcg/Inh Aerosol one inhalation daily 60units E11.40 Roni Pedraza MD 7 Ferrous Gluconate 324(38Fe) mg Tab lets 1 tablet by mouth, on an empty stomach, with orange juice on mondays, wednesdays, fridays at 6am. 14tabs E11.40 Roni Pedraza MD 02/25/2016 Atlas Apps 2 w/Device Kit test blood sugar twice daily, needs lancet 1units E11.40 Duc Wells NP 01/20/2016 Colace 100mg Capsules 1 by mouth once a day 30caps K59.00 Roni Pedraza MD 01/12/2016 Artificial Tears 1.4% Solution 1 drop to each eye twice daily at 9am and 8pm, msa and keep at bedside 15ml Millicent Venegas FNP 01/12/2016 Aldactone 25mg Tablets 1 by mouth every day at 9am 30tabs I11.0 Roni Pedraza MD 01/12/2016 Tylenol 8 Hour Arthritis Pain 650mg Tablets ER give 2 tablets by mouth once daily at bedtime at 8pm for pain 12 0tabs Roni Pedraza MD 01/12/2016 Lipitor 20mg Tablets 1 tablet by mouth once daily at bedtime 30tabs E78.5 Roni Pedraza MD 08/2015 Uloric 40mg Tablets 1 tablet by mouth daily at 4pm 30tabs M10.00 Roni Pedraza MD 01/12/2016 Acetaminophen 325mg Tablets 2 tabs by mouth as needed every 6 hours for arthritic pain, mdd=3gm alert receives scheduled, check time given 240tabs Millicent Venegas FNP 01/12/2016 Preservision Areds 2 Areds 2 Capsu les 2 tablets by mouth once daily at 8pm 60caps Phyl DRE Li 01/12/2016 Milk Of Magnesia 400mg/5ML Suspens ion 30mls by mouth as needed every 4 hours as needed for constipation relief 473ml K59.00 DRE Sutherland 01/12/2016 Simethicone 80mg Chewtabs 1 tablet by mouth three times daily at 9am, noon, and 5pm for gas relief 90units Roni Pedraza MD 01/12/2016 Restasis 0.05% Emulsion give 1 drop to both eyes twice daily at 9am and 8pm for dry eyes. may keep at bedside and self administer 60units Millicent Venegas FNP 01/12/2016 Proair HFA 108(90Base) mcg/Act Aer osol 2 puffs inhaled every 4 hours as needed for cough, may keep at bedside, may self administer, with spacer 25.5gm R06.02 Millicent Venegas FNP 08/2015 Diabetic Tussin DM 100-10mg/5ML Li quid give 2 teaspoon as needed by mouth every 6 hours for cough 118ml Millicent Venegas FNP 01/12/2016 Calcium 500+D 182-352rh-Iech Table ts 1 by mouth bid 30tabs Millicent Venegas FNP 01/12/2016 Biofreeze 4% Gel 1 unit topically as needed for painful joints, knees may self administer, may keep at bedside. 118ml Millicent Venegas FNP 01/12/2016 Doxercalciferol 2.5mcg Capsules 1 tablet daily at 1700, to be given with 0.5mcg for a total of 3.0 mcg 30caps E03.9 Roni Pedraza MD 01/12/2016 Doxercalciferol 0.5mcg Capsules 1 tablet daily at 1700 30caps E03.9 Roni Pedraza MD 01/12/2016 Tramadol HCL 50mg Tablets 1 tablet by mouth daily at 22:00 and every 6 hours as needed for pain 90tabs Roni Pedraza MD 01/08/2016 History Medications Drisdol 1.25mg (21633 Ut) Capsules 1 tab monthly 3caps Roni Pedraza MD 01/19/2020 - 01/19/2020 Fluconazole 150mg Tablets take one tablet today and repeat in 2 days 2tabs Roni Pedraza MD 01/03/2020 - 02/19/2020 Drisdol 1.25mg (21978 Ut) Capsules 1 tab weekly 12caps Roni Pedraza MD 09/26/2019 - 01/19/2020 Immunizations CPT Code Status Date Vaccine Lot # U-Flu Given 12/21/2019 Influenza,Unspecified U-Flu Given 01/15/2018 Influenza,Unspecified Vital Signs Date Vital Result Comment 02/19/2020 1:33pm BP Systolic 126 mmHg RT Arm BP Diastolic 72 mmHg RT Arm Heart Rate 68 /min Height 60 inches 5'0" Weight 236.00 lb BMI (Body Mass Index) 46.1 kg/m2 11/03/2019 11:32am BP Systolic 128 mmHg BP Diastolic 70 mmHg Heart Rate 78 /min O2 % BldC Oximetry 94 % RM Air Results Test Acquired Date Facility Test Result H/L Range Note Complete Blood Count 02/19/2020 [facility] Contract Graphic Designer: [place] [address] [phone] WBC 7.0 x10*3/UL 4.1 - 10.9 1 RBC 3.76 x10*6/UL Low 4.20 - 6.30 Hemoglobin 11.9 g/dL Low 12.0 - 18.0 Hematocrit 34.1 % Low 37.0 - 51.0 MCV 90.7 fL 80.0 - 97.0 MCH 31.8 pg 26.0 - 32.0 MCHC 35.0 g/dL 31.0 - 38.0 RDW 12.9 % 11.6 - 13.7 PLT 176 x10*3/UL 140 - 440 MPV 8.9 FL 7.8 - 11.0 Lymph % 18.6 % 10.0 - 58.5 Mid % 4.6 % 1.7 - 9.3 Neut % 76.8 % 37.0 - 92.0 Lymph # 1.3 x10*3/UL 0.6 - 4.1 Mid # 0.4 x10*3/UL 0.1 - 0.6 Neut # 5.3 x10*3/UL 2.0 - 7.8 A1c 02/19/2020 [facility] Contract Graphic Designer: Dr Roni Pedraza [place], [place] [id number] [phone] Hba1c 10.2 % High <5.7 2 Est Avg Glucose 246 mg/dL High 60 - 110 Basic Metabolic Panel 02/19/2020 [facility] Contract Graphic Designer: Dr Roni Pedraza [place], [place] [id number] [phone] Glucose 276 mg/dL High 74 - 99 3 BUN 43 mg/dL High 7 - 18 4 Creatinine 1.7 mg/dL High 0.6 - 1.3 Sodium 140 mEq/L 136 - 145 Potassium 4.4 mEq/L 3.5 - 5.1 Chloride 101 mEq/L 98 - 107 Carbon Dioxide 31 mEq/L 21 - 32 Calcium 9.3 mg/dL 8.5 - 10.1 GFR 29 mL/min Low >60 GFR 35 mL/min Low >60 5 CBC With Differential 10/26/2019 [facility] [address] [place], [place] [id number] [phone] White Blood Count 11.3 10 High 4.0-10.0 Red Blood Count 3.66 10 Low 4.00-5.40 Hemoglobin 11.5 g/dL Low 12.0-15.5 Hematocrit 34.2 % Low 36.0-47.0 Mean Corpuscular Volume 93.4 fl Normal 80.0-96.0 Mean Corpuscular Hemoglobin 31.4 pg Normal 27.0-33.0 Mean Corpuscular HGB Conc 33.6 g/dL Normal 32.0-36.5 Red Cell Distribution Width 13.4 % Normal 11.5-14.5 Platelet Count, Automated 158 10 Normal 150-450 Neutrophils % 79.7 % High 36.0-66.0 Lymph % 12.4 % Low 24.0-44.0 [place] % 6.5 % High 0.0-5.0 Eos % 0.5 % Normal 0.0-3.0 Baso % 0.4 % Normal 0.0-1.0 Immature Granulocyte % 0.5 % Normal 0-3.0 Nucleated Red Blood Cell % 0.0 % Normal 0-0 Neutrophils # 9.0 10 High 1.5-8.5 Lymph # 1.4 10 Low 1.5-5.0 [place] # 0.7 10 Normal 0.0-0.8 Eos # 0.1 10 Normal 0.0-0.5 Baso # 0.0 10 Normal 0.0-0.2 PT & Aptt 10/26/2019 [facility] nter [address] [place] [address] [phone] Prothrombin Time 24.4 seconds High 11.8-14.0 Inr 2.14 Normal 6 Partial Thromboplastin Time 38.2 seconds Normal 25.0-38.4 Cardiac Marker Panel 10/26/2019 [facility] enter [address] [place] [address] [phone] CPK Creatine Phosphokinase 77 U/L Normal 26-19 2 CK-MB Value Mass 1.3 NG/ML Normal <3.6 MB/CK Relative Index 1.69 Normal < Or =4 7 Troponin I < 0.02 NG/ML Normal < 0.10 8 Basic Metabolic Profile 10/26/2019 [facility] [address] [place] [address] [phone] Glucose, Fasting 388 mg/dL High 70-100 Blood Urea Nitrogen 60 mg/dL High 7-18 Creatinine For GFR 2.02 mg/dL High 0.55-1.30 Glomerular Filtration Rate 25.0 Low >32 9 Sodium Level 134 mEq/L Low 136-145 Potassium Serum 4.1 mEq/L Normal 3.5-5.1 Chloride Level 98 mEq/L Normal 98-107 Carbon Dioxide Level 28 mEq/L Normal 21-32 Anion Gap 8 mEq/L Normal 8-16 Calcium Level 9.5 mg/dL Normal 8.8-10.2 1 NOTE: CBC VERIFIED 2 Lab Result Notes: Pre-Diabetes 5.7 - 6.4 % Diabetes = or > 6.5% 3 100-125 mg/dL PRE-DIABET ES/FASTING >126 mg/dL DIABETES/FASTING 4 NOTE: BUN,CREAT VERIFIED 5 CHRONIC KIDNEY DISEASE STAGI NG PER NKF STAGE I & II GFR >= 60 NORMAL TO MILDLY DECREASED STAGE III GFR 30-59 MODERATELY DECREASED STAGE IV GFR 15-29 SEVERELY DECREASED STAGE V GFR <15 VERY LITTLE GFR LEFT ESRD GFR <15 ON ELEMENTARY ART TEACHER 6 THERAPUTIC HUMAN INR VALUES INDICATIONS NORMAL RANGES PROPHYLAXIS/TREATMENT OF: VENOUS THROMBOSIS 2.0-3.0 PULMONARY EMBOLISM 2.0-3.0 PREVENTION OF SYSTEMIC EMBOLISM FROM: TISSUE HEART VALVES 2.0-3.0 ACUTE MYOCARDIAL INFARCTION 2.0-3.0 VALVULAR HEART DISEASE 2.0-3.0 ATRIAL FIBRILLATION 2.0-3.0 MECHANICAL VALVES(HIGH RISK) 2.5-3.5 RECURRENT MYOCARDIAL INFARCTION 2.5-3.5 7 DIAGNOSIS CRITERIA MMB ng/ml Relative Index (RI) NON-AMI < or = 5 N/A SORENSEN ZONE > 5 < or = 4 AMI > 5 > 4 8 Troponin I Reference Interva l for [employer] LOCI: 99th Percentile= 0.00-0.045 ng/ml Risk Stratification: <= 0.10 ng/ml Decreased Risk for Adverse Clinical Events. 0.10-1.50 ng/ml Increased Risk for Adv erse Clinical Events. Evaluation of additional criterion and/or repeat testing in 2-6 hours is suggested to rule out myocardial damage. >= 1.50 ng/ml Indicative of Myocardial Injury. 9 Units are mL/min/1.73 m2 Chronic Kidney Disease Staging per NKF: Stage I & II GFR >=60 Normal to Mildly Decreased Stage III GFR 30-59 Moderately Decreased Stage IV GFR 15-29 Severely Decreased Stage V GFR <15 Very Little GFR Left ESRD GFR <15 on ELEMENTARY ART TEACHER Procedures Description No Information Available Medical Devices Description No Information Available Encounters Type Date Location Provider Dx Diagnosis Office Visit 02/19/2020 1:40p [facility] Fanny carlson, RADIOLOGY TRANSCRIPTIONIST E11.40 Type 2 diabetes mellitus with diabetic n skinny, unsp Z79.4 rodent exterminator (current) use of i nsulin I13.0 Hyp hrt & chr kdny dis w hrt fail and stg 1-4/unsp chr kdny I50.32 Chronic diastolic (congestiv e) heart failure N18.30 Chronic kidney disease, stag e 3 unspecified J44.9 Chronic obstructive pulmonar y disease, unspecified I48.91 Unspecified atrial fibrillat ion Z79.01 USP (current) use of a nticoagulants E55.9 Vitamin D deficiency, unspec ified M15.9 Polyosteoarthritis, unspecif ied H91.93 Unspecified hearing loss, bi lateral D50.9 Iron deficiency anemia, unsp ecified Office Visit 11/03/2019 11:40a [facility], [facility] S00.03xA Contusion of scalp, initial encounter W19.xxxA Unspecified fall, initial en counter Y92.[address] or not stas licable I48.91 Unspecified atrial fibrillat ion Office Visit 08/25/2019 3:00p [facility] E11.40 Type 2 diabetes mellitus with diabetic n europathy, unsp I13.0 Hyp hrt & chr kdny dis w hrt fail and stg 1-4/unsp chr kdny I50.32 Chronic diastolic (congestiv e) heart failure N18.3 Chronic kidney disease, stag e 3 (moderate) I48.91 Unspecified atrial fibrillat ion J44.9 Chronic obstructive pulmonar y disease, unspecified E55.9 Vitamin D deficiency, unspec ified E03.9 Hypothyroidism, unspecified M10.9 Gout, unspecified K21.9 Gastro-esophageal reflux dis ease without esophagitis J30.9 Allergic rhinitis, unspecifi ed M15.9 Polyosteoarthritis, unspecif ied Assessments Date Code Description Provider 02/19/2020 E11.40 Type 2 diabetes beverly itus with diabetic neuropathy, unspecified [facility]2020 Z79.4 USP (current) use of insul in [facility] 02/19/2020 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 and stage 1 through stage 4 chronic kidney disease, or unspecified chronic kidney disease Fanny Garduno, [facility] 02/19/2020 I50.32 Chronic diastolic (congestive) h eart failure Fanny Daphnie, [facility] 02/19/2020 N18.30 Chronic kidney disease, stage 3 unspecified Fanny Daphnie, [facility] 02/19/2020 J44.9 Chronic obstructive pulmonary di sease, unspecified Fanny Daphnie, [facility] 02/19/2020 I48.91 Unspecified atrial fibrillation Fanny Daphnie, [facility] 02/19/2020 Z79.01 USP (current) use of antic oagulants Fannywan Garduno, [facility] 02/19/2020 E55.9 Vitamin D deficiency, unspecifie d Fanny Daphnie, [facility] 02/19/2020 M15.9 Polyosteoarthritis, unspecified Fanny Daphnie, [facility] 02/19/2020 H91.93 Unspecified hearing loss, bilate ral Fannyalphonso Garduno, [facility] 02/19/2020 D50.9 Iron deficiency anemia, unspecif ied Fanny Daphnie, [facility] 11/03/2019 S00.03xA Contusion of scalp, initial enco unter JOSE Donovan JR 11/03/2019 W19.xxxA Unspecified fall, initial encoun ter JOSE Donovan JR 11/03/[address] or not applica ble JOSE Donovan JR 11/03/2019 I48.91 Unspecified atrial fibrillation JOSE Donovan JR 08/25/2019 E11.40 Type 2 diabetes beverly itus with diabetic neuropathy, unspecified [facility] 08/25/2019 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 and stage 1 through stage 4 chronic kidney disease, or unspecified chronic kidney disease [facility] 08/25/2019 I50.32 Chronic diastolic (congestive) h eart failure [facility] 08/25/2019 N18.3 Chronic kidney disease, stage 3 (moderate) [facility] 08/25/2019 I48.91 Unspecified atrial fibrillation [facility] 08/25/2019 J44.9 Chronic obstructive pulmonary di sease, unspecified [facility] 08/25/2019 E55.9 Vitamin D deficiency, unspecifie d Uziel Venegasyn,[facility] 08/25/2019 E03.9 Hypothyroidism, unspecified Millicent Summers,[facility] 08/25/2019 M10.9 Gout, unspecified Fareed Venegas,[facility] 08/25/2019 K21.9 Gastro-esophageal reflux disease without esophagitis Alicia Venegashryn,[facility] 08/25/2019 J30.9 Allergic rhinitis, unspecified K Alicia mckenziehryn,[facility] 08/25/2019 M15.9 Polyosteoarthritis, unspecified Millicent Venegas FNP Plan of Treatment Future Appointment(s):* 08/21/2020 1:00 pm - JOSE Donovan JR at [facility] * 04/24/2020 1:40 pm - Nurse #2 at [facility] * 04/24/2020 2:00 pm - DRE Danielle at [facility] 02/19/2020 - DRE Danielle* E11.40 Type 2 diabetes mellitus with diabetic neuropathy, unspecified* Comments:* Review of sugars indicates that she is having elevations QHS mostly, >300. I have increased Lantus to 50 units BID and added Humalog 10 units to lunch and dinner. [facility] per month. There does also seem to be a degree of dietary noncompliance as well. Checking BMP and A1c today. Added Lisinopril 2.5 mg PO daily, and is appropriately on Lipitor already. She does follow with nephrology. * Z79.4 USP (current) use of insulin * I13.0 Hypertensive heart and chronic kidney disease with heart failure and stage 1 through stage 4 chronic kidney disease, or unspecified chronic kidney disease* Comments:* BP is at goal. She follows with nephrology. Checking BMP today. Is currently on bisoprolol, added lisinopril 2.5 mg po daily. * I50.32 Chronic diastolic (congestive) heart failure* Comments:* Clinically euvolemic today. Checking BMP. Continues on Torsemide. * N18.30 Chronic kidney disease, stage 3 unspecified* Comments:* Follows with nephrology, BMP is pending. * J44.9 Chronic obstructive pulmonary disease, unspecified* Comments:* Has Breo ProAir PRN. * I48.91 Unspecified atrial fibrillation* Comments:* On Xarelto and Bisoprolol for rate control. * Z79.01 USP (current) use of anticoagulants * E55.9 Vitamin D deficiency, unspecified* Comments:* Continues on supplementation; Drisdol/Doxercalciferol/Calcium +D as per medicine list. Plan to check vitamin D level at next visit. * M15.9 Polyosteoarthritis, unspecified* Comments:* Has scheduled Tylenol as well as Tramadol. Has PRN doses of the same. Has Capsaicin and Biofreeze to be used PRN. * H91.93 Unspecified hearing loss, bilateral* Comments:* Has hearing aid, not functioning. [facility] sent to [facility] to have her seen by audiology in this regard to have it repaired. * D50.9 Iron deficiency anemia, unspecified* Comments:* Continues on Ferrous gluconate. CBC is pending. * All * New Medication:* Lisinopril 2.5 mg - 1 tablet by mouth daily * Famotidine 20 mg - 1 by mouth bid prn heartburn * Maalox Max 400-400-40 mg/5ML - 30 ml by mouth as needed every six hours for GERD * Humalog Kwikpen 100 Unit/ML - 10 units SQ before lunch and dinner * Comments:* F/U in two months to re-evaluate diabetes. I have asked [facility] to send blood sugars monthly. COVID precautions are discussed and social distancing/mask use/ frequent hand washing and sanitizing are encouraged. Functional Status Functional Condition Comment Date Status Rolling walker is used to ambulate with seat as needed re: OA Active Equipment: shower chair PRN; Mechanical bed for mobility; Orthopedic shoes for pain; CPAP set @ 9 when sleeping; New mattress 11/28/15 Active Diet: Carb controlled, No Addes Salt, 1500 cc FR - as per nephrology. Active Vital Signs: BP, pulse, temp, RR, and jon ght once monthly, call with SBP >180 or <100, temp >101, Pulse >100<50, resp rate >26, weight change of 3 pounds in a week or 5 pounds in a month = report q3 months. FSBS once daily at 0600, call if <100, give to MD weekly for review, report FSBS and weights monthly on the first. Active Labs: Glycosated HE the of alicia ry Apr, July, Oct, Jan for DM. CBC, CMP, Digoxin, lipids, Mg, TSH, every Dec 11 for DM, A-fib, CHF. Active Consults: [facility]- hearing eval, Dental consult as needed, Opthalmology consult as needed - Kylah Rudolph, [place] [facility], Podiatry consult every 3 months and as needed for foot care, JOSE Andrade - cardiology, and Nephrology - Dr Shafer Active Misc: TEDS size Lg on @9am x12hrs, off @9pm x12hrs; vasoline as needed twice daily apply to nose/nares for excoriation/dry nose; may consume ETOH at social events. Laundry as needed, TELLER Active Contacts: Sister Alexander SPAIN, , sister Whit Arteaga is secondary. Active Preferred Mortuary: [facility] Active Continence: urinary incontinence Active Mental Status Description No Information Available Referrals Description No Information Available
--- OUTSIDE RECORDS SUMMARY | 2020-04-06 17:30 | CCD | Continuity of Care Document ---
Author Author Margoth GARDUNO ALARM MECHANIC Organization Unknown Address [address] [place] [address] Phone [phone] Care Team Providers Care Dental Claims Processor Name Role Phone Roni Pedraza JR, MD AUTM Unavailable Millicent Venegas ANP AUTM [phone] Fanny Garduno ALARM MECHANIC AUTM [phone] Problems Active Problems Provider Date Hypothyroidism DRE Wells Onset: 01/12/2016 Vitamin D deficiency DRE Wells Onset: 01/12/2016 Hyperlipidemia Phyl DRE Li Onset: 01/12/2016 Anxiety Phyl Guillermo, DRE Onset: 01/12/2016 Obstructive sleep apnea syndrome DRE [...] Pedraza MD 02/19/2020 Famotidine 20mg Tablets 1 tablet by mouth twice a day 180tabs Roni Pedraza MD 02/19/2020 Maalox Max 220-027-27wj/5ML Suspen aurea 30 ml by mouth as needed every six hours for GERD C florin Pedraza MD 02/19/2020 Humalog Kwikpen 100U nit/ML Solution Pen-Inject 10 units SQ before lunch and dinner 45ml Colli cinthia Pedraza MD 02/19/2020 Drisdol 1.25mg (92834 Ut) Capsules 1 tab monthly 12capxochitl Pedraza MD 01/19/2020 Nystatin Powder apply twice a day as needed to excoriated skin folds may keep at bedside and may self administer 120gm Roni Pedraza MD 01/03/[address] 2 by mouth every day (128mg) do not crush 60tabs Roni Pedraza MD 08/03 Loratadine 10mg Capsules 1 by mouth once a day 90caps Roni Pedraza MD 06/14/2019 Xarelto 15mg Tablets [...] 6am. 14tabs E11.40 Roni Pedraza MD 02/25/2016 [facility] [employer] 2 w/Device Kit test blood sugar twice [...] 118ml Millicent Venegas FNP 01/12/2016 Calcium 500+D [id number] Table ts 1 by mouth bid 30tabs [...] Pedraza MD 01/08/2016 History Medications Drisdol 1.25mg (76145 Ut) Capsules 1 tab monthly 3caps Roni Pedraza MD 01/19/2020 - 01/19/2020 Fluconazole 150mg Tablets take one tablet today and repeat in 2 days 2tabs Roni Pedraza MD 01/03/2020 - 02/19/2020 Drisdol 1.25mg (75860 Ut) Capsules 1 tab weekly 12caps Roni [...] H/L Range Note Complete Blood Count 02/19/2020 [facility] Dynamicist: [place] [address] [phone] WBC 7.0 x10*3/UL 4.1 - 10.9 1 [...] 5.3 x10*3/UL 2.0 - 7.8 A1c 02/19/2020 [facility] Dynamicist: Dr Roni Pedraza [place], [place] [id number] [phone] Hba1c 10.2 % High <5.7 2 Est Avg Glucose 246 mg/dL High 60 - 110 Basic Metabolic Panel 02/19/2020 [facility] Dynamicist: Dr Roni Pedraza [place], [place] [id number] [phone] Glucose 276 mg/dL High 74 - 99 [...] Low >60 5 CBC With Differential 10/26/2019 [facility] [address] [place], [place] [id number] [phone] White Blood Count 11.3 10 High 4.0-10.0 [...] 36.0-66.0 Lymph % 12.4 % Low 24.0-44.0 Vil[place] % 6.5 % High 0.0-5.0 Eos % 0.5 % Normal 0.0-3.0 Baso % 0.4 % Normal 0.0-1.0 Immature Granulocyte % 0.5 % Normal 0-3.0 Nucleated Red Blood Cell % 0.0 % Normal 0-0 Neutrophils # 9.0 10 High 1.5-8.5 Lymph # 1.4 10 Low 1.5-5.0 Vilas # 0.7 10 Normal 0.0-0.8 Eos # 0.1 10 Normal 0.0-0.5 Baso # 0.0 10 Normal 0.0-0.2 PT & Aptt 10/26/2019 [facility] nter [address] [place] [address] [phone] Prothrombin Time 24.4 seconds High 11.8-14.0 Inr 2.14 Normal 6 Partial Thromboplastin Time 38.2 seconds Normal 25.0-38.4 Cardiac Marker Panel 10/26/2019 [facility] [address] [place] [address] [phone] CPK Creatine Phosphokinase 77 U/L Normal 26-19 2 CK-MB Value Mass 1.3 NG/ML Normal <3.6 MB/CK Relative Index 1.69 Normal < Or =4 7 Troponin I < 0.02 NG/ML Normal < 0.10 8 Basic Metabolic Profile 10/26/2019 [facility] [address] [place] [address] [phone] Glucose, Fasting 388 mg/dL High 70-100 Blood [...] LITTLE GFR LEFT ESRD GFR <15 ON CUSTOMER SERVICE OPERATOR 6 THERAPUTIC HUMAN INR VALUES INDICATIONS NORMAL [...] 8 Troponin I Reference Interva l for [email or web address] LOCI: 99th Percentile= 0.00-0.045 ng/ml Risk Stratification: [...] Little GFR Left ESRD GFR <15 on CUSTOMER SERVICE OPERATOR Procedures Description No Information Available Medical Devices Description No Information Available Encounters Type Date Location Provider Dx Diagnosis Office Visit 02/19/2020 1:40p [facility] 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, unsp Z79.4 terminal makeup operator (current) use of i nsulin I13.0 Hyp hrt & chr kdny dis w hrt fail and stg 1-4/unsp chr kdny I50.32 Chronic diastolic (congestiv e) heart failure N18.30 Chronic kidney disease, stag e 3 unspecified J44.9 Chronic obstructive pulmonar y disease, unspecified I48.91 Unspecified atrial fibrillat ion Z79.01 snf (current) use of a nticoagulants E55.9 Vitamin D deficiency, unspec ified M15.9 Polyosteoarthritis, unspecif ied H91.93 Unspecified hearing loss, bi lateral D50.9 Iron deficiency anemia, unsp ecified Office Visit 11/03/2019 11:40a [facility] 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 and stage 1 through stage 4 chronic kidney disease, or unspecified chronic kidney disease Fanny Garduno, [facility] 02/19/2020 I50.32 Chronic diastolic (congestive) h eart failure Fanny Garduno, [facility] 02/19/2020 N18.30 Chronic kidney disease, stage 3 unspecified Fanny Garduno, [facility] 02/19/2020 J44.9 Chronic obstructive pulmonary di sease, unspecified Fanny Garduno, [facility] 02/19/2020 I48.91 Unspecified atrial fibrillation [facility]/2020 Z79.01 terminal makeup operator (current) use of antic oagulants Fanny Garduno, [facility] 02/19/2020 E55.9 Vitamin D deficiency, unspecifie d Fanny Garduno, [facility] 02/19/2020 M15.9 Polyosteoarthritis, unspecified Fanny Garduno, [facility] 02/19/2020 H91.93 Unspecified hearing loss, bilate ral Fanny Garduno, [facility] 02/19/2020 D50.9 Iron deficiency anemia, unspecif ied Fanny DRE Garduno 11/03/2019 S00.03xA Contusion of scalp, initial enco unter JOSE Donovan JR 11/03/2019 W19.xxxA Unspecified fall, initial encoun ter JOSE Donovan JR 11/03/[address] or not applica ble JOSE Donovan JR 11/03/2019 I48.91 Unspecified atrial fibrillation JOSE Donovan JR Plan of Treatment Future Appointment(s):* 08/21/2020 1:00 pm - JOSE Donovan JR at [facility] * 04/24/2020 1:40 pm - Nurse #2 at [facility] * 04/24/2020 2:00 pm - DRE Danielle at [facility] 02/19/2020 - DRE Danielle* E11.40 [...] She does follow with nephrology. * Z79.4 snf (current) use of insulin * I13.0 Hypertensive [...] Chronic obstructive pulmonary disease, unspecified* Comments:* Has Breo, ProAir PRN. * I48.91 Unspecified atrial fibrillation* Comments:* On Xarelto and Bisoprolol for rate control. * Z79.01 terminal makeup operator (current) use of anticoagulants * E55.9 Vitamin [...] daily * Famotidine 20 mg - 1 tablet by mouth twice a day * Maalox Max 400-400-40 mg/5ML - 30 [...] Opthalmology consult as needed - Kylah Rudolph, [facility], Podiatry consult every 3 months and as needed for foot care, JOSE Andrade - cardiology, and Nephrology - Dr Shafer Active Misc: TEDS size Lg on @9am x12hrs, off @9pm x12hrs; vasoline as needed twice daily apply to nose/nares for excoriation/dry nose; may consume ETOH at social events. Laundry as needed, [place]OW Active Contacts: Sister Alexander SPAIN, , sister Whit Arteaga is secondary. Active Preferred Mortuary: [facility] Active Continence: urinary incontinence Active Mental Status Description No Information Available Referrals Description No Information Available
--- OUTSIDE RECORDS SUMMARY | 2020-04-06 17:30 | CCD | Continuity of Care Document ---
Author Author Margoth GARDUNO UNIFORMS SALES REPRESENTATIVE Organization Unknown Address [address] [place] [address] Phone [phone] Care Team Providers Care Alignment Specialist Name Role Phone Roni Pedraza JR, MD AUTM Unavailable Millicent Venegas ANP AUTM [phone] Fanny Garduno UNIFORMS SALES REPRESENTATIVE AUTM [phone] Problems Active Problems Provider Date Hypothyroidism DRE [...] 90tabs Roni Pedraza MD 02/19/2020 Maalox Max 624-552-31yr/5ML Suspen aurea 30 ml by mouth as needed every six hours for GERD C florin Pedraza MD 02/19/2020 Humalog Kwikpen 100U nit/ML Solution Pen-Inject 10 units SQ before lunch and dinner 45ml Colli cinthia Pedraza MD 02/19/2020 Drisdol 1.25mg (97030 Ut) Capsules 1 tab monthly 12capxochitl Pedraza [...] 6am. 14tabs E11.40 Roni Pedraza MD 02/25/2016 [employer] 2 w/Device Kit test blood sugar twice [...] 118ml Millicent Venegas FNP 01/12/2016 Calcium 500+D [id number]-Lipl Table ts 1 by mouth bid 30tabs [...] Pedraza MD 01/08/2016 History Medications Drisdol 1.25mg (56127 Ut) Capsules 1 tab monthly 3caps Roni Pedraza MD 01/19/2020 - 01/19/2020 Fluconazole 150mg Tablets take one tablet today and repeat in 2 days 2tabs Roni Pedraza MD 01/03/2020 - 02/19/2020 Drisdol 1.25mg (15239 Ut) Capsules 1 tab weekly 12caps Roni [...] H/L Range Note Complete Blood Count 02/19/2020 [facility] Apprentice Stylist: [place] [address] [phone] WBC 7.0 x10*3/UL 4.1 - 10.9 1 [...] 5.3 x10*3/UL 2.0 - 7.8 A1c 02/19/2020 [facility] Apprentice Stylist: Dr Roni Pedraza [place], [place] [id number] [phone] Hba1c 10.2 % High <5.7 2 Est Avg Glucose 246 mg/dL High 60 - 110 Basic Metabolic Panel 02/19/2020 [facility] Apprentice Stylist: Dr Roni Pedraza [place], [place] [address] [phone] Glucose 276 mg/dL High 74 - 99 [...] Low >60 5 CBC With Differential 10/26/2019 [facility] [address] [place], [place] [id number] [phone] White Blood Count 11.3 10 High 4.0-10.0 [...] 36.0-66.0 Lymph % 12.4 % Low 24.0-44.0 [place] % 6.5 % High 0.0-5.0 Eos % 0.5 % Normal 0.0-3.0 Baso % 0.4 % Normal 0.0-1.0 Immature Granulocyte % 0.5 % Normal 0-3.0 Nucleated Red Blood Cell % 0.0 % Normal 0-0 Neutrophils # 9.0 10 High 1.5-8.5 Lymph # 1.4 10 Low 1.5-5.0 [place] # 0.7 10 Normal 0.0-0.8 Eos # 0.1 10 Normal 0.0-0.5 Baso # 0.0 10 Normal 0.0-0.2 PT & Aptt 10/26/2019 [facility] nter [address] [place] [address] [phone] Prothrombin Time 24.4 seconds High 11.8-14.0 Inr 2.14 Normal 6 Partial Thromboplastin Time 38.2 seconds Normal 25.0-38.4 Cardiac Marker Panel 10/26/2019 [facility] enter [address] [place] [address] [phone] CPK Creatine Phosphokinase 77 U/L Normal 26-19 2 CK-MB Value Mass 1.3 NG/ML Normal <3.6 MB/CK Relative Index 1.69 Normal < Or =4 7 Troponin I < 0.02 NG/ML Normal < 0.10 8 Basic Metabolic Profile 10/26/2019 [facility] [address] [place] [address] [phone] Glucose, Fasting 388 mg/dL High 70-100 Blood [...] LITTLE GFR LEFT ESRD GFR <15 ON CRANE OPERATOR CAB 6 THERAPUTIC HUMAN INR VALUES INDICATIONS NORMAL [...] 8 Troponin I Reference Interva l for [employer] LOCI: 99th Percentile= 0.00-0.045 ng/ml Risk Stratification: [...] Little GFR Left ESRD GFR <15 on CRANE OPERATOR CAB Procedures Description No Information Available Medical Devices Description No Information Available Encounters Type Date Location Provider Dx Diagnosis [facility] 11[facility] S00.03xA Contusion of scalp, initial encounter W19.xxxA Unspecified fall, initial en counter Y92.[address] or not stas licable I48.91 Unspecified atrial fibrillat ion Office Visit 08/25/2019 3:00p [facility], Jamel Shelton,[facility] E11.40 Type 2 diabetes mellitus with diabetic n [facility] Hyp hrt & chr kdny dis [...] beverly itus with diabetic neuropathy, unspecified Fanny Daphnie, [facility] 02/19/2020 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 and stage 1 through stage 4 chronic kidney disease, or unspecified chronic kidney disease Fanny Daphnie, [facility] 02/19/2020 N18.30 Chronic kidney disease, stage 3 unspecified Fanny Daphnie, [facility] 02/19/2020 I50.32 Chronic diastolic (congestive) h eart failure Fanny Garduno, [facility] 02/19/2020 J44.9 Chronic obstructive pulmonary di sease, unspecified Fanny Daphnie, [facility] 02/19/2020 I48.91 Unspecified atrial fibrillation Fanny Daphnie, [facility] 02/19/2020 E55.9 Vitamin D deficiency, unspecifie d Fanny Daphnie, [facility] 02/19/2020 M10.9 Gout, unspecified Fanny Daphnie, [facility] 02/19/2020 K21.9 Gastro-esophageal reflux disease without esophagitis Fanny Daphnie, [facility] 02/19/2020 J30.9 Allergic rhinitis, unspecified J illian Daphnie, [facility] 02/19/2020 M15.9 Polyosteoarthritis, unspecified Fanny Daphnie, [facility] 02/19/2020 Z79.4 care home (current) use of insul in Fanny Garduno, [facility] 02/19/2020 E66.01 Morbid (severe) obesity due to e xcess calories Fanny Garduno, [facility] 02/19/2020 H91.93 Unspecified hearing loss, bilate ral Fanny Garduno, [facility] 02/19/2020 D50.9 Iron deficiency anemia, unspecif ied Fanny Garduno, [facility] 02/19/2020 K59.00 Constipation, unspecified Toryia n Daphnie, [facility] 02/19/2020 E83.42 Hypomagnesemia Fanny Garduno, F [employer]VIS[employer] 02/19/2020 Z68.42 Body mass index [BMI] 45.0-49.9, adult Fanny Garduno, [facility] 11/03/2019 S00.03xA Contusion of scalp, initial enco unter JOSE Donovan JR 11/03/2019 W19.xxxA Unspecified fall, initial encoun ter JOES Donovan JR 11/03/[address] or not applica ble JOSE Donovan JR 11/03/2019 I48.91 Unspecified atrial fibrillation JOSE Donovan JR 08/25/2019 E11.40 Type 2 diabetes beverly itus with diabetic neuropathy, unspecified [facility] 08/25/2019 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 and stage 1 through stage 4 chronic kidney disease, or unspecified chronic kidney disease [facility] 08/25/2019 I50.32 Chronic diastolic (congestive) h eart failure [facility] 08/25/2019 N18.3 Chronic kidney disease, stage 3 (moderate) [facility] 08/25/2019 I48.91 Unspecified atrial fibrillation [facility] 08/25/2019 J44.9 Chronic obstructive pulmonary di sease, unspecified [facility] 08/25/2019 E55.9 Vitamin D deficiency, unspecifie d [facility] 08/25/2019 E03.9 Hypothyroidism, unspecified [facility]ent [facility] 08/25/2019 M10.9 Gout, unspecified TheoFareed kelly cristino,[facility] 08/25/2019 K21.9 Gastro-esophageal reflux disease without esophagitis TheoAlicia kellyhryn,[facility] 08/25/2019 J30.9 Allergic rhinitis, unspecified K jonah Millicent,DRE 08/25/2019 M15.9 Polyosteoarthritis, unspecified Millicent Venegas FNP Plan of Treatment Future Appointment(s):* 08/21/2020 1:00 pm - JOSE Donovan JR at [facility] * 04/24/2020 1:40 pm - Nurse #2 at [facility] * 04/24/2020 2:00 pm - DRE Danielle at [facility] 02/19/2020 - DRE Danielle* E11.40 [...] already. She does follow with nephrology. 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 She follows with nephrology. Checking BMP today. Is currently on bisoprolol, added lisinopril 2.5 mg po daily. * N18.30 Chronic kidney disease, stage 3 unspecified* Comments:* Follows with nephrology, BMP is pending. * I50.32 Chronic diastolic (congestive) heart failure* Comments:* Clinically euvolemic today. Checking BMP. Continues on Torsemide. * J44.9 Chronic obstructive pulmonary disease, unspecified* Comments:* Has Breo, ProAir PRN. * I48.91 Unspecified atrial fibrillation* Comments:* On Xarelto and Bisoprolol for rate control. * E55.9 Vitamin D deficiency, unspecified* Comments:* Continues on supplementation; Drisdol/Doxercalciferol/Calcium +D as per medicine list. Plan to check vitamin D level at next visit. * M10.9 Gout, unspecified* Comments:* Continues on Uloric. No recent flare. * K21.9 Gastro-esophageal reflux disease without esophagitis* Comments:* D/C Omeprazole and trial Famotidine 20 mg PO BID PRN GERD.I'll follow up on this in 2 months when she returns. * J30.9 Allergic rhinitis, unspecified* Comments:* No current issues. Continues on Flonase, artificial tears, Loratidine. * M15.9 Polyosteoarthritis, unspecified* Comments:* Has scheduled Tylenol as well as Tramadol. Has PRN doses of the same. Has Capsaicin and Biofreeze to be used PRN. 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 There is a degree of dietary noncompliance. * H91.93 Unspecified hearing loss, bilateral* Comments:* Has hearing aid, not functioning. [facility] regard to have it repaired. * D50.9 Iron deficiency anemia, unspecified* Comments:* Continues on Ferrous gluconate. CBC is pending. * K59.00 Constipation, unspecified* Comments:* Has orders for Colace, Milk of Mag PRN, Simethicone if needed for gas. * E83.42 Hypomagnesemia* Comments:* Continues on Mag 64 daily. Check Mg next visit. * Z68.42 Body mass index [BMI] 45.0-49.9, adult * All * New Medication:* Lisinopril 2.5 [...] the first. Active Labs: Glycosated HE the ry Apr, July, Oct, Jan for DM. CBC, CMP, Digoxin, lipids, Mg, TSH, every Dec 11 for DM, A-fib, CHF. Active Consults: [facility]- hearing eval, Dental consult as needed, Opthalmology consult as needed - Kylah Rudolph, [facility], Podiatry consult every 3 months and as needed for foot care, JOSE Andrade - cardiology, and Nephrology - Dr Shafer Active Misc: TEDS size Lg on @9am x12hrs, off @9pm x12hrs; vasoline as needed twice daily apply to nose/nares for excoriation/dry nose; may consume ETOH at social events. Laundry as needed, KAKE Active Contacts: Sister Alexander SPAIN, , sister Whit Arteaga is secondary. Active Preferred Mortuary: [facility] Active Continence: urinary incontinence Active Mental Status Description No Information Available Referrals Description No Information Available
--- OUTSIDE RECORDS SUMMARY | 2020-04-06 17:30 | CCD | Continuity of Care Document ---
Author Author Margoth GARDUNO ENROLLMENT ELIGIBILITY REPRESENTATIVE Organization Unknown Address [address] [place] [address] Phone [phone] Care Team Providers Care Security Guard Supervisor Name Role Phone Roni Pedraza JR, MD AUTM Unavailable Millicent Venegas ANP AUTM [phone] Fanny Garduno ENROLLMENT ELIGIBILITY REPRESENTATIVE AUTM [phone] Problems Active Problems Provider Date Hypothyroidism DRE Welsl Onset: 01/12/2016 Vitamin D deficiency DRE Wells [...] SIG Qnty Indications Ordering Provide r Date Oyster Shell Calcium/D [id number] Tablets Take One Tablet By Mouth Daily 30tabs DRE Mcknight Ma 03/15/2020 Lisinopril 2.5mg Tablets 1 tablet by mouth daily 90tabs Roni Pedraza MD 02/19/2020 Famotidine 20mg Tablets 1 tablet by mouth twice a day 180tabs Roni Pedraza MD 02/19/2020 Maalox Max 808-983-56fm/5ML Suspen aurea 30 ml by mouth as needed every six hours for GERD C florin Pedraza MD 02/19/2020 Humalog Kwikpen 100U nit/ML Solution Pen-Inject 6 units sq before lunch and dinner, new order 03/18/20 45ml Roni Pedarza MD 02/19/2020 Drisdol 1.25mg (17894 Ut) Capsules 1 tab monthly 12gloria Pedraza MD 01/19/2020 Nystatin Powder apply twice a day as needed to excoriated skin folds may keep at bedside and may self administer 120gm Roni Pedraza MD 01/03/[address] 2 by mouth every day (128mg) do not crush 60tabs Roni Pedraza MD 08/03 Loratadine 10mg Capsules 1 by mouth once a day 90gloria Pedraza MD 06/14/2019 Xarelto 15mg Tablets 1 by mouth every day with evening meal 90tabs Roni Pedraza MD 05/04/19 20 Icaps Capsules 1 by m outh every day 30capMillicent Bowers,DRE 04/13/2019 Flonase Allergy Relief 50mcg/Act Suspension 2 [...] Lantus Solostar 100U nit/ML Solution Pen-Inject inject 44 units subcutaneously twice a day (new script 03/14/20) 3 0ml Roni Pedraza MD 07/05/2018 BD Autoshield Duo [...] 6am. 14tabs E11.40 Roni Pedraza MD 02/25/2016 [employer] 2 w/Device Kit test blood sugar twice [...] by mouth once daily at 8pm 60caps DRE Wells 01/12/2016 Milk Of Magnesia 400mg/5ML Suspens ion [...] 118ml Millicent Venegas FNP 01/12/2016 Calcium 500+D [id number]-Pcey Table ts 1 by mouth bid 30tabs Millicent Venegas FNP 01/12/2016 Biofreeze 4% Gel 1 unit topically as needed for painful joints, knees may self administer, may keep at bedside. 118ml Theo MillicentDRE 01/12/2016 Doxercalciferol 2.5mcg Capsules 1 tablet daily [...] Pedraza MD 01/08/2016 History Medications Drisdol 1.25mg (37367 Ut) Capsules 1 tab monthly 3caps Roni Pedraza MD 01/19/2020 - 01/19/2020 Fluconazole 150mg Tablets take one tablet today and repeat in 2 days 2tabs Roni Pedraza MD 01/03/2020 - 02/19/2020 Drisdol 1.25mg (00303 Ut) Capsules 1 tab weekly 12caps Roni [...] H/L Range Note Complete Blood Count 02/19/2020 [facility] [employer] Supervisor: Dr Roni [place] [address] [phone] WBC 7.0 x10*3/UL 4.1 - 10.9 1 [...] 5.3 x10*3/UL 2.0 - 7.8 A1c 02/19/2020 [facility] [employer] Supervisor: [place] [address] [phone] Hba1c 10.2 % High <5.7 2 Est Avg Glucose 246 mg/dL High 60 - 110 Basic Metabolic Panel 02/19/2020 [facility] [employer] Supervisor: [place] [address] [phone] Glucose 276 mg/dL High 74 - 99 [...] Low >60 5 CBC With Differential 10/26/2019 [facility] [address] [place] [address] [phone] White Blood Count 11.3 10 High 4.0-10.0 [...] 36.0-66.0 Lymph % 12.4 % Low 24.0-44.0 Ponce % 6.5 % High 0.0-5.0 Eos % 0.5 % Normal 0.0-3.0 Baso % 0.4 % Normal 0.0-1.0 Immature Granulocyte % 0.5 % Normal 0-3.0 Nucleated Red Blood Cell % 0.0 % Normal 0-0 Neutrophils # 9.0 10 High 1.5-8.5 Lymph # 1.4 10 Low 1.5-5.0 Ponce # 0.7 10 Normal 0.0-0.8 Eos # 0.1 10 Normal 0.0-0.5 Baso # 0.0 10 Normal 0.0-0.2 PT & Aptt 10/26/2019 [facility] nter [address] [place] [address] [phone] Prothrombin Time 24.4 seconds High 11.8-14.0 Inr 2.14 Normal 6 Partial Thromboplastin Time 38.2 seconds Normal 25.0-38.4 Cardiac Marker Panel 10/26/2019 [facility] enter [address] [place] [address] [phone] CPK Creatine Phosphokinase 77 U/L Normal 26-19 2 CK-MB Value Mass 1.3 NG/ML Normal <3.6 MB/CK Relative Index 1.69 Normal < Or =4 7 Troponin I < 0.02 NG/ML Normal < 0.10 8 Basic Metabolic Profile 10/26/2019 [facility] [address] [place] [address] [phone] Glucose, Fasting 388 mg/dL High 70-100 Blood [...] LITTLE GFR LEFT ESRD GFR <15 ON COMPLIANCE TECHNICIAN 6 THERAPUTIC HUMAN INR VALUES INDICATIONS NORMAL [...] 8 Troponin I Reference Interva l for Siemens [place] LOCI: 99th Percentile= 0.00-0.045 ng/ml Risk Stratification: [...] Little GFR Left ESRD GFR <15 on COMPLIANCE TECHNICIAN Procedures Description No Information Available Medical Devices Description No Information Available Encounters Type Date Location Provider Dx Diagnosis Office Visit 03/14/2020 2:00p [facility], PTaryn carlson, [facility] E11.40 Type 2 diabetes mellitus with diabetic n europathy, [facility] E11.649 Type 2 diabetes mellitus wit h hypoglycemia without coma Z79.4 custodial (current) use of i nsulin N18.30 Chronic kidney disease, stag e 3 unspecified Office Visit 02/19/2020 1:40p [facility] E11.40 Type 2 diabetes mellitus with diabetic n [facility] Z79.4 termination clerk (current) use of i nsulin I13.0 Hyp hrt & chr kdny dis w hrt fail and stg 1-4/unsp chr kdny I50.32 Chronic diastolic (congestiv e) heart failure N18.30 Chronic kidney disease, stag e 3 unspecified J44.9 Chronic obstructive pulmonar y disease, unspecified I48.91 Unspecified atrial fibrillat ion Z79.01 termination clerk (current) use of a nticoagulants E55.9 Vitamin D deficiency, unspec ified M15.9 Polyosteoarthritis, unspecif ied H91.93 Unspecified hearing loss, bi lateral D50.9 Iron deficiency anemia, unsp ecified Office Visit 11/03/2019 11:40a [facility], PTaryn Garcia JR, [place] S00.03xA Contusion of scalp, initial encounter W19.xxxA Unspecified fall, initial en counter Y92.[address] or not stas licable I48.91 Unspecified atrial fibrillat ion Assessments Date Code Description Provider 03/14/2020 E11.40 Type 2 diabetes beverly itus with diabetic neuropathy, unspecified Fanny Garduno, [facility] 03/14/2020 E11.649 Type 2 diabetes mellitus with hy poglycemia without coma Fanny Garduno, [facility] 03/14/2020 Z79.4 termination clerk (current) use of insul in Fanny Daphnie, [facility] 03/14/2020 N18.30 Chronic kidney disease, stage 3 unspecified Fanny Garduno, [facility] 02/19/2020 E11.40 Type 2 diabetes beverly itus with diabetic neuropathy, unspecified Fanny Garduno, [facility] 02/19/2020 Z79.4 termination clerk (current) use of insul in Fanny Garduno, 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 02/19/2020 I50.32 Chronic diastolic (congestive) h eart failure Fanny Daphnie, [facility] 02/19/2020 N18.30 Chronic kidney disease, stage 3 unspecified Fanny Daphnie, [facility] 02/19/2020 J44.9 Chronic obstructive pulmonary di sease, unspecified Fanny Murrayra, [facility] 02/19/2020 I48.91 [facility]specified atrial [facility]/2020 Z79.01 termination clerk (current) use of antic oagulants Fanny Daphnie, [facility] 02/19/2020 E55.9 Vitamin D deficiency, unspecifie d [facility] 02/19/2020 M15.9 Polyosteoarthritis, unspecified Fanny Daphnie, [facility] 02/19/2020 H91.93 Unspecified hearing loss, bilate ral [facility] 02/19/2020 D50.9 Iron deficiency anemia, unspecif ied Fanny Daphnie, [facility] 11/03/2019 S00.03xA Contusion of scalp, initial enco unter JOSE Donovan JR 11/03/2019 W19.xxxA Unspecified fall, initial encoun ter JOSE Donovan JR 11/03/[address] or not applica ble JOSE Donovan JR 11/03/2019 I48.91 Unspecified atrial fibrillation JOSE Donovan JR Plan of Treatment Future Appointment(s):* 08/21/2020 1:00 pm - JOSE Donovan JR at [facility] * 04/24/2020 1:40 pm - Nurse #2 at [facility] * 04/24/2020 2:00 pm - DRE Danielle at [facility] 03/14/2020 - CARLI DanielleP* E11.40 Type 2 diabetes mellitus with diabetic neuropathy, unspecified* Comments:* Decreased her Lantus to 44 units BID, and decreased Humalog to 8 units with lunch and dinner. Staff to check BS AC TID and PRN. Will send me weekly BS reports as well as a report specifically on Wednesday. Should call to report further episodes of hypoglycemia. * E11.649 Type 2 diabetes mellitus with hypoglycemia without coma * Z79.4 termination clerk (current) use of insulin * N18.30 Chronic kidney disease, stage 3 unspecified* Comments:* Re-check BMP on 03/20/20 due to slight increase in creatinine to 2.22. Discussed with Dr. Harris, monitor for now, consider discontinuing Lisinopril with result of next BMP. Of note, is followed by nephrology. * All * Comments:* Will follow up after I receive blood sugars on Wednesday03/18/20. She does have an in office F/U in April, but perhaps will need to see her sooner depending on symptoms and blood sugars. Functional Status Functional Condition Comment Date Status [...] the first. Active Labs: Glycosated HE the Apr, July, Oct, Jan for DM. CBC, CMP, Digoxin, lipids, Mg, TSH, every Dec 11 for DM, A-fib, CHF. Active Consults: [facility]- hearing eval, Dental consult as needed, Opthalmology consult as needed - Kylah Rudolph, [place] [facility], Podiatry consult every 3 months and as needed for foot care, JOSE Andrade - cardiology, and Nephrology - Dr Shafer Active Misc: TEDS size Lg on @9am x12hrs, off @9pm x12hrs; vasoline as needed twice daily apply to nose/nares for excoriation/dry nose; may consume ETOH at social events. Laundry as needed, [place] Active Contacts: Sister Alexander SPAIN, , sister Whit Arteaga is secondary. Active Preferred Mortuary: [facility] Active Continence: urinary incontinence Active Mental Status Description No Information Available Referrals Description No Information Available
--- OUTSIDE RECORDS SUMMARY | 2020-04-06 17:31 | CCD | Continuity of Care Document ---
Author Author Margoth GARDUNO EXTRUDING DEPARTMENT SUPERVISOR Organization Unknown Address [address] [place] [address] Phone [phone] Care Team Providers Care Service Establishment Attendant Name Role Phone Roni Pedraza JR, MD AUTM Unavailable Millicent Venegas ANP AUTM [phone] Fanny Garduno EXTRUDING DEPARTMENT SUPERVISOR AUTM [phone] Problems Active Problems Provider Date Hypothyroidism DRE [...] 90tabs Roni Pedraza MD 02/19/2020 Maalox Max 388-139-52sg/5ML Suspen aurea 30 ml by mouth as needed every six hours for GERD C florin Pedraza MD 02/19/2020 Humalog Kwikpen 100U nit/ML Solution Pen-Inject 10 units SQ before lunch and dinner 45ml Colli cinthia Pedraza MD 02/19/2020 Drisdol 1.25mg (36321 Ut) Capsules 1 tab monthly 12capxochitl Pedraza [...] 6am. 14tabs E11.40 Roni Pedraza MD 02/25/2016 [employer] 2 w/Device Kit test blood sugar twice [...] mouth once daily at 8pm 60caps Phyl DER Li 01/12/2016 Milk Of Magnesia 400mg/5ML Suspens [...] 118ml Millicent Venegas FNP 01/12/2016 Calcium 500+D 800-970pi-Ulea Table ts 1 by mouth bid 30tabs [...] Pedraza MD 01/08/2016 History Medications Drisdol 1.25mg (00416 Ut) Capsules 1 tab monthly 3caps Roni Pedraza MD 01/19/2020 - 01/19/2020 Fluconazole 150mg Tablets take one tablet today and repeat in 2 days 2tabs Roni Pedraza MD 01/03/2020 - 02/19/2020 Drisdol 1.25mg (81039 Ut) Capsules 1 tab weekly 12caps Roni [...] Date Facility Test Result H/L Range Note Laboratory test finding 02/19/2020 [place] Press Operator Printing: [place] [address] [phone] A1c <pending> CBC With Differential 10/26/2019 [facility] [address] [place], [place] [address] [phone] White Blood Count 11.3 10 High 4.0-10.0 [...] 36.0-66.0 Lymph % 12.4 % Low 24.0-44.0 Bee % 6.5 % High 0.0-5.0 Eos % 0.5 % Normal 0.0-3.0 Baso % 0.4 % Normal 0.0-1.0 Immature Granulocyte % 0.5 % Normal 0-3.0 Nucleated Red Blood Cell % 0.0 % Normal 0-0 Neutrophils # 9.0 10 High 1.5-8.5 Lymph # 1.4 10 Low 1.5-5.0 Bee # 0.7 10 Normal 0.0-0.8 Eos # 0.1 10 Normal 0.0-0.5 Baso # 0.0 10 Normal 0.0-0.2 PT & Aptt 10/26/2019 [facility] nter [address] [place] [address] [phone] Prothrombin Time 24.4 seconds High 11.8-14.0 Inr 2.14 Normal 1 Partial Thromboplastin Time 38.2 seconds Normal 25.0-38.4 Cardiac Marker Panel 10/26/2019 [facility] enter [address] [place] [address] [phone] CPK Creatine Phosphokinase 77 U/L Normal 26-19 2 CK-MB Value Mass 1.3 NG/ML Normal <3.6 MB/CK Relative Index 1.69 Normal < Or =4 2 Troponin I < 0.02 NG/ML Normal < 0.10 3 Basic Metabolic Profile 10/26/2019 [facility] [address] [place] [address] [phone] Glucose, Fasting 388 mg/dL High 70-100 Blood Urea Nitrogen 60 mg/dL High 7-18 Creatinine For GFR 2.02 mg/dL High 0.55-1.30 Glomerular Filtration Rate 25.0 Low >32 4 Sodium Level 134 mEq/L Low 136-145 Potassium Serum 4.1 mEq/L Normal 3.5-5.1 Chloride Level 98 mEq/L Normal 98-107 Carbon Dioxide Level 28 mEq/L Normal 21-32 Anion Gap 8 mEq/L Normal 8-16 Calcium Level 9.5 mg/dL Normal 8.8-10.2 1 THERAPUTIC HUMAN INR VALUES INDICATIONS NORMAL RANGES PROPHYLAXIS/TREATMENT OF: VENOUS THROMBOSIS 2.0-3.0 PULMONARY EMBOLISM 2.0-3.0 PREVENTION OF SYSTEMIC EMBOLISM FROM: TISSUE HEART VALVES 2.0-3.0 ACUTE MYOCARDIAL INFARCTION 2.0-3.0 VALVULAR HEART DISEASE 2.0-3.0 ATRIAL FIBRILLATION 2.0-3.0 MECHANICAL VALVES(HIGH RISK) 2.5-3.5 RECURRENT MYOCARDIAL INFARCTION 2.5-3.5 2 DIAGNOSIS CRITERIA MMB ng/ml Relative Index (RI) NON-AMI < or = 5 N/A SORENSEN ZONE > 5 < or = 4 AMI > 5 > 4 3 Troponin I Reference Interva l for Siemens [place] LOCI: 99th Percentile= 0.00-0.045 ng/ml Risk Stratification: <= 0.10 ng/ml Decreased Risk for Adverse Clinical Events. 0.10-1.50 ng/ml Increased Risk for Adv erse Clinical Events. Evaluation of additional criterion and/or repeat testing in 2-6 hours is suggested to rule out myocardial damage. >= 1.50 ng/ml Indicative of Myocardial Injury. 4 Units are mL/min/1.73 m2 Chronic Kidney Disease Staging per NKF: Stage I & II GFR >=60 Normal to Mildly Decreased Stage III GFR 30-59 Moderately Decreased Stage IV GFR 15-29 Severely Decreased Stage V GFR <15 Very Little GFR Left ESRD GFR <15 on GUEST HISTORY CLERK Procedures Description No Information Available Medical Devices Description No Information Available Encounters Type Date Location Provider Dx Diagnosis Office Visit 11/03/2019 11:40a [facility] PTaryn Garcia JR PA S00.03xA Contusion of scalp, initial encounter W19.xxxA Unspecified fall, initial en counter Y92.[address] or not stas licable I48.91 Unspecified atrial fibrillat ion Office Visit 08/25/2019 3:00p [place] [facility] PJamel [place],EXTRUDING DEPARTMENT SUPERVISOR E11.40 Type 2 diabetes mellitus with diabetic [...] unspecif ied Assessments Date Code Description Provider 11/03/2019 S00.03xA Contusion of scalp, initial enco unter JOSE Donovan JR 11/03/2019 W19.xxxA Unspecified fall, initial encoun ter JOSE Donovan JR 11/03/[address] or not applica ble JOSE Donovan JR 11/03/2019 I48.91 Unspecified atrial fibrillation JOSE Donovan JR 08/25/2019 E11.40 Type 2 diabetes beverly itus with diabetic neuropathy, unspecified Millicent Venegas FNP 08/25/2019 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 and stage 1 through stage 4 chronic kidney disease, or unspecified chronic kidney disease Millicent Venegas FNP 08/25/2019 I50.32 Chronic diastolic (congestive) h eart failure Millicent Venegas FNP 08/25/2019 N18.3 Chronic kidney disease, stage 3 (moderate) Millicent Venegas FNP 08/25/2019 I48.91 Unspecified atrial fibrillation Millicent Venegas FNP 08/25/2019 J44.9 Chronic obstructive pulmonary di sease, unspecified Millicent VenegasEXTRUDING DEPARTMENT SUPERVISOR 08/25/2019 E55.9 Vitamin D deficiency, unspecifie d Millicent Venegas FNP 08/25/2019 E03.9 Hypothyroidism, unspecified Millicent SummersEXTRUDING DEPARTMENT SUPERVISOR 08/25/2019 M10.9 Gout, unspecified Fareed Venegas,DRE 08/25/2019 K21.9 Gastro-esophageal reflux disease without esophagitis Millicent Venegas,DRE 08/25/2019 J30.9 Allergic rhinitis, unspecified K Millicent mckenzie,DRE 08/25/2019 M15.9 Polyosteoarthritis, unspecified Millicent Venegas FNP Plan of Treatment Future Appointment(s):* 02/21/2020 1:40 pm - DRE Danielle at [facility] * 02/21/2020 1:20 pm - Nurse #2 at [facility] 02/19/2020 - DRE Danielle* All * New Medication:* Lisinopril 2.5 mg - 1 tablet by mouth daily * Famotidine 20 mg - 1 by mouth bid prn heartburn * Maalox Max 400-400-40 mg/5ML - 30 ml by mouth as needed every six hours for GERD * Humalog Kwikpen 100 Unit/ML - 10 units SQ before lunch and dinner Functional Status Functional Condition Comment Date Status [...] 11 for DM, A-fib, CHF. Active Consults: [facility]- hearing eval, Dental consult as needed, Opthalmology consult as needed - Kylah Rudolph, [place] [facility], Podiatry consult every 3 months and as needed for foot care, JOSE Andrade - cardiology, and Nephrology - Dr Shafer Active Misc: TEDS size Lg on @9am x12hrs, off @9pm x12hrs; vasoline as needed twice daily apply to nose/nares for excoriation/dry nose; may consume ETOH at social events. Laundry as needed, [facility] Active Contacts: Sister Alexander SPAIN, , sister Whit Arteaga is secondary. Active Preferred Mortuary: [facility] Active Continence: urinary incontinence Active Mental Status Description No Information Available Referrals Description No Information Available
--- OUTSIDE RECORDS SUMMARY | 2020-04-06 17:31 | CCD ---
Author Author [facility] Organization [facility] Address Unknown Phone Unavailable Care Team Providers Care Childcare Worker Name Role Phone Daphnie, Fanny TEAMCENTER CONSULTANT Unavailable Unavailable Daphnie, Fanny TEAMCENTER CONSULTANT Unavailable Unavailable Daphnie, Fanny TEAMCENTER CONSULTANT Unavailable Unavailable Daphnie, Fanny TEAMCENTER CONSULTANT Unavailable Unavailable Daphnie, Fanny TEAMCENTER CONSULTANT Unavailable Unavailable Daphnie, Fanny TEAMCENTER CONSULTANT Unavailable Unavailable Daphnie, Fanny TEAMCENTER CONSULTANT Unavailable Unavailable Daphnie, Fanny TEAMCENTER CONSULTANT Unavailable Unavailable Daphnie, Fanny TEAMCENTER CONSULTANT Unavailable Unavailable Daphnie, Fanny TEAMCENTER CONSULTANT Unavailable Unavailable Daphnie, Fanny TEAMCENTER CONSULTANT Unavailable Unavailable Daphnie, Fanny TEAMCENTER CONSULTANT Unavailable Unavailable Daphnie, Fanny TEAMCENTER CONSULTANT Unavailable Unavailable Daphnie, Fanny TEAMCENTER CONSULTANT Unavailable Unavailable Daphnie, Fanny TEAMCENTER CONSULTANT Unavailable Unavailable Daphnie, Fanny TEAMCENTER CONSULTANT Unavailable Unavailable Daphnie, Fanny TEAMCENTER CONSULTANT Unavailable Unavailable Daphnie, Fanny TEAMCENTER CONSULTANT Unavailable Unavailable Daphnie, Fanny TEAMCENTER CONSULTANT Unavailable Unavailable Daphnie, Fanny TEAMCENTER CONSULTANT Unavailable Unavailable Daphnie, Fanny TEAMCENTER CONSULTANT Unavailable Unavailable Daphnie, Fanny TEAMCENTER CONSULTANT Unavailable Unavailable Daphnie, Fanny TEAMCENTER CONSULTANT Unavailable Unavailable Daphnie, Fanny TEAMCENTER CONSULTANT Unavailable Unavailable Daphnie, Fanny TEAMCENTER CONSULTANT Unavailable Unavailable Daphnie, Fanny TEAMCENTER CONSULTANT Unavailable Unavailable Daphnie, Fanny TEAMCENTER CONSULTANT Unavailable Unavailable Sai SHELL JR, PA-C Unavailable Unavailable Sai SHELL JR, PA-C Unavailable Unavailable Sai SHELL JR, PA-C Unavailable Unavailable Sai SHELL JR, PA-C Unavailable Unavailable PICKERAL JR, J JOIE PA-C Unavailable Unavailable PICKERAL JR, J JOIE PA-C Unavailable Unavailable PICKERAL JR, J JOIE PA-C Unavailable Unavailable PICKERAL JR, J JOIE PA-C Unavailable Unavailable PICKERAL JR, J JOIE PA-C Unavailable Unavailable PICKERAL JR, J JOEI PA-C Unavailable Unavailable PICKERAL JR, J JOIE PA-C Unavailable Unavailable PICKERAL JR, J JOIE PA-C Unavailable Unavailable PICKERAL JR, J JOIE PA-C Unavailable Unavailable PICKERAL JR, J JOIE PA-C Unavailable Unavailable PICKERAL JR, J JOIE PA-C Unavailable Unavailable PICKERAL JR, J JOIE PA-C Unavailable Unavailable PICKERAL JR, J JOIE PA-C Unavailable Unavailable PICKERAL JR, J JOIE PA-C Unavailable Unavailable PICKERAL JR, J JOIE PA-C Unavailable Unavailable PICKERAL JR, J JOIE PA-C Unavailable Unavailable Theo, Millicent TEAMCENTER CONSULTANT Unavailable Unavailable Theo, Millicent TEAMCENTER CONSULTANT Unavailable Unavailable Theo, Millicent TEAMCENTER CONSULTANT Unavailable Unavailable Theo, Millicent TEAMCENTER CONSULTANT Unavailable Unavailable Theo, Millicent TEAMCENTER CONSULTANT Unavailable Unavailable Theo, Millicent TEAMCENTER CONSULTANT Unavailable Unavailable Theo, Millicent TEAMCENTER CONSULTANT Unavailable Unavailable Theo, Millicent TEAMCENTER CONSULTANT Unavailable Unavailable Theo, Millicent TEAMCENTER CONSULTANT Unavailable Unavailable Theo, Millicent TEAMCENTER CONSULTANT Unavailable Unavailable Theo, Millicent TEAMCENTER CONSULTANT Unavailable Unavailable Theo, Millicent TEAMCENTER CONSULTANT Unavailable Unavailable Theo, Millicent TEAMCENTER CONSULTANT Unavailable Unavailable Theo, Millicent TEAMCENTER CONSULTANT Unavailable Unavailable Theo, Millicent TEAMCENTER CONSULTANT Unavailable Unavailable Theo, Millicent TEAMCENTER CONSULTANT Unavailable Unavailable Theo, Millicent TEAMCENTER CONSULTANT Unavailable Unavailable Theo, Millicent TEAMCENTER CONSULTANT Unavailable Unavailable Theo, Millicent TEAMCENTER CONSULTANT Unavailable Unavailable Theo, Millicent TEAMCENTER CONSULTANT Unavailable Unavailable Theo, Millicent TEAMCENTER CONSULTANT Unavailable Unavailable Theo, Millicent TEAMCENTER CONSULTANT Unavailable Unavailable Theo, Millicent TEAMCENTER CONSULTANT Unavailable Unavailable Theo, Millicent TEAMCENTER CONSULTANT Unavailable Unavailable Theo, Millicent TEAMCENTER CONSULTANT Unavailable Unavailable Theo, Millicent TEAMCENTER CONSULTANT Unavailable Unavailable Theo, Millicent TEAMCENTER CONSULTANT Unavailable Unavailable Theo, Millicent TEAMCENTER CONSULTANT Unavailable Unavailable Theo, Millicent TEAMCENTER CONSULTANT Unavailable Unavailable Theo, Millicent TEAMCENTER CONSULTANT Unavailable Unavailable Theo, Millicent TEAMCENTER CONSULTANT Unavailable Unavailable Theo, Millicent TEAMCENTER CONSULTANT Unavailable Unavailable Theo, Millicent TEAMCENTER CONSULTANT Unavailable Unavailable Theo, Millicent TEAMCENTER CONSULTANT Unavailable Unavailable Theo, Millicent TEAMCENTER CONSULTANT Unavailable Unavailable Theo, Millicent TEAMCENTER CONSULTANT Unavailable Unavailable Theo, Millicent TEAMCENTER CONSULTANT Unavailable Unavailable Theo, Millicent TEAMCENTER CONSULTANT Unavailable Unavailable Theo, Millicent TEAMCENTER CONSULTANT Unavailable Unavailable Theo, Millicent TEAMCENTER CONSULTANT Unavailable Unavailable Theo, Millicent TEAMCENTER CONSULTANT Unavailable Unavailable Theo, Millicent TEAMCENTER CONSULTANT Unavailable Unavailable Theo, Millicent TEAMCENTER CONSULTANT Unavailable Unavailable Theo, Millicent TEAMCENTER CONSULTANT Unavailable Unavailable Theo, Millicent TEAMCENTER CONSULTANT Unavailable Unavailable Theo, Millicent TEAMCENTER CONSULTANT Unavailable Unavailable Theo, Millicent TEAMCENTER CONSULTANT Unavailable Unavailable Theo, Millicent TEAMCENTER CONSULTANT Unavailable Unavailable Theo, Millicent TEAMCENTER CONSULTANT Unavailable Unavailable Theo, Millicent TEAMCENTER CONSULTANT Unavailable Unavailable Theo, Millicent TEAMCENTER CONSULTANT Unavailable Unavailable Theo, Millicent TEAMCENTER CONSULTANT Unavailable Unavailable Theo, Millicent TEAMCENTER CONSULTANT Unavailable Unavailable Theo, Millicent TEAMCENTER CONSULTANT Unavailable Unavailable Theo, Millicent TEAMCENTER CONSULTANT Unavailable Unavailable Theo, Millicent TEAMCENTER CONSULTANT Unavailable Unavailable Theo, Millicent TEAMCENTER CONSULTANT Unavailable Unavailable Theo, Millicent TEAMCENTER CONSULTANT Unavailable Unavailable Theo, Millicent TEAMCENTER CONSULTANT Unavailable Unavailable Theo, Millicent TEAMCENTER CONSULTANT Unavailable Unavailable Theo, Millicent TEAMCENTER CONSULTANT Unavailable Unavailable Theo, Millicent TEAMCENTER CONSULTANT Unavailable Unavailable Theo, Millicent TEAMCENTER CONSULTANT Unavailable Unavailable Theo, Millicent TEAMCENTER CONSULTANT Unavailable Unavailable Theo, Millicent TEAMCENTER CONSULTANT Unavailable Unavailable Theo, Millicent TEAMCENTER CONSULTANT Unavailable Unavailable Theo, Millicent TEAMCENTER CONSULTANT Unavailable Unavailable Theo, Millicent TEAMCENTER CONSULTANT Unavailable Unavailable Theo, Millicent TEAMCENTER CONSULTANT Unavailable Unavailable Theo, Millicent TEAMCENTER CONSULTANT Unavailable Unavailable Theo, Millicent TEAMCENTER CONSULTANT Unavailable Unavailable Theo, Millicent TEAMCENTER CONSULTANT Unavailable Unavailable Theo, Millicent TEAMCENTER CONSULTANT Unavailable Unavailable Theo, Millicent TEAMCENTER CONSULTANT Unavailable Unavailable Theo, Millicent TEAMCENTER CONSULTANT Unavailable Unavailable Theo, Millicent TEAMCENTER CONSULTANT Unavailable Unavailable Theo, Millicent TEAMCENTER CONSULTANT Unavailable Unavailable Theo, Millicent TEAMCENTER CONSULTANT Unavailable Unavailable Theo, Millicent TEAMCENTER CONSULTANT Unavailable Unavailable Theo, Millicent TEAMCENTER CONSULTANT Unavailable Unavailable Theo, Millicent TEAMCENTER CONSULTANT Unavailable Unavailable Theo, Millicent TEAMCENTER CONSULTANT Unavailable Unavailable Theo, Millicent TEAMCENTER CONSULTANT Unavailable Unavailable Theo, Millicent TEAMCENTER CONSULTANT Unavailable Unavailable Theo, Millicent TEAMCENTER CONSULTANT Unavailable Unavailable Theo, Millicent TEAMCENTER CONSULTANT Unavailable Unavailable Theo, Millicent TEAMCENTER CONSULTANT Unavailable Unavailable Theo, Millicent TEAMCENTER CONSULTANT Unavailable Unavailable Theo, Millicent TEAMCENTER CONSULTANT Unavailable Unavailable Theo, Millicent TEAMCENTER CONSULTANT Unavailable Unavailable Theo, Millicent TEAMCENTER CONSULTANT Unavailable Unavailable Theo, Millicent TEAMCENTER CONSULTANT Unavailable Unavailable Theo, Millicent TEAMCENTER CONSULTANT Unavailable Unavailable Theo, Millicent TEAMCENTER CONSULTANT Unavailable Unavailable Theo, Mlilicent TEAMCENTER CONSULTANT Unavailable Unavailable Theo, Millicent TEAMCENTER CONSULTANT Unavailable Unavailable Theo, Millicent TEAMCENTER CONSULTANT Unavailable Unavailable Theo, Millicent TEAMCENTER CONSULTANT Unavailable Unavailable Theo, Millicent TEAMCENTER CONSULTANT Unavailable Unavailable Theo, Millicent TEAMCENTER CONSULTANT Unavailable Unavailable Theo, Millicent TEAMCENTER CONSULTANT Unavailable Unavailable Theo, Millicent TEAMCENTER CONSULTANT Unavailable Unavailable Theo, Millicent TEAMCENTER CONSULTANT Unavailable Unavailable Theo, Millicent TEAMCENTER CONSULTANT Unavailable Unavailable Theo, Millicent TEAMCENTER CONSULTANT Unavailable Unavailable Theo, Millicent TEAMCENTER CONSULTANT Unavailable Unavailable Re-disclosure Warning The records that you are about to access may contain information from federally-assisted alcohol or drug abuse programs. If such information is present, then the following federally mandated warning applies: This information has been disclosed to you from records protected by federal confidentiality rules (42 CFR part 2). The federal rules prohibit you from making any further disclosure of this information unless further disclosure is expressly permitted by the written consent of the person to whom it pertains or as otherwise permitted by 42 CFR part 2. A general authorization for the release of medical or other information is NOT sufficient for this purpose. The Federal rules restrict any use of the information to criminally investigate or prosecute any alcohol or drug abuse patient.The records that you are about to access may contain highly sensitive health information, the redisclosure of which is protected by Article 27-F of the [facility] Public Health law. If you continue you may have access to information: Regarding HIV / AIDS; Provided by facilities licensed or operated by the [facility] Office of Mental Health; or Provided by the [facility] Office for People With Developmental Disabilities. If such information is present, then the following [facility] mandated warning applies: This information has been disclosed to you from confidential records which are protected by state law. State law prohibits you from making any further disclosure of this information without the specific written consent of the person to whom it pertains, or as otherwise permitted by law. Any unauthorized further disclosure in violation of state law may result in a fine or group home sentence or both. A general authorization for the release of medical or other information is NOT sufficient authorization for further disc losure. Family History Family Member Name Family Member Gender Family Member Status Date o f Status Description Data Source(s) Unknown Unknown Problem [facility] Unknown Female Problem [facility] Unknown Female Problem [facility] ([facility]) Unknown Female Problem [facility] ([facility]) Encounters Encounter Providers Location Date Indications Data Source(s ) Outpatient Attender: Fanny Langley 01:00:00 PM EST [facility] ([facility] ) Outpatient Attender: Fanny Langley 12:40:00 PM EST [facility] ([facility] ) Outpatient Attender: JOIE Langley 0 11/03/2019 11:40:00 AM EDT [facility] ([facility] ) Outpatient Attender: Millicent Langley 0 08/25/2019 03:00:00 PM EDT [facility] ([facility] ) Outpatient Attender: Millicent Langley 0 03/23/2019 01:30:00 PM EST [facility] ([facility] ) Outpatient Referrer: Millicent ERICKSON 02/22/2019 09:46:0 0 PM EST [facility] Immunizations Vaccine Date Status Description Data Source(s) This CVX code allows reporting of a vacc ination when formulation is unknown (for example, when recording a Influenza vaccination when noted on a vaccination card) 12/21/2019 11:32:00 AM EDT completed MEDEN T ([facility]) INFLUENZA VIRUS VACCINE QUADRIVAL SPLIT 2019-21(65 YR UP)/PF 12/21/2019 12:00:00 AM EDT completed [facility] Medications Medication Brand Name Start Date Product Form Dose Route Admi nistrative Instructions Pharmacy Instructions Status Indications Reaction Description Data Source(s) Calcium Carbonate 1250 MG / Cholecalciferol 200 UNT Or al Tablet Oyster Shell Calcium/D 03/15/2020 12:00:00 AM EST active [facility] ([facility]) Famotidine 20 MG Oral Tablet Famotidine 02/19/2020 12:00:00 AM EST ORAL active [facility] ([facility]) Lisinopril 2.5 MG Oral Tablet Lisinopril 02/19/2020 12:00:00 AM EST ORAL active [facility] ([facility]) 3 ML Insulin Lispro 100 UNT/ML Pen Injector [Humalog] Humalo g Kwikpen 02/19/2020 12:00:00 AM EST SUBCUTANEOUS active [facility] ([facility]) Aluminum Hydroxide 80 MG/ML / Magnesium Hydroxide 80 MG/ML / Simethicone 8 MG/ML Oral Suspension [Maalox Max] Maalox Max 02/19/2020 12:00:00 AM EST ORAL active [facility] ([facility]) Ergocalciferol 99022 UNT Oral Capsule [Drisdol] Drisdol 01/19/2020 12:00:00 AM EST active [facility] ([facility]) Ergocalciferol 80068 UNT Oral Capsule [Drisdol] Drisdol 01/19/2020 12:00:00 AM EST completed [facility] ([facility]) Fluconazole 150 MG Oral Tablet Fluconazole 01/03/2020 12:00:00 AM EDT completed [facility] ([facility]) Nystatin 01/03/2020 12:00:00 AM EDT active [facility] ([facility]) Ergocalciferol 62531 UNT Oral Capsule [Drisdol] Drisdol 09/26/2019 12:00:00 AM EDT completed [facility] Magnesium Chloride 535 MG Delayed Release Oral Tablet [Mag 6 4] Mag64 08/04/2019 12:00:00 AM EDT ORAL active M EDENT ([facility]) Loratadine 10 MG Oral Capsule Loratadine 06/14/2019 12:00:00 AM EDT ORAL active [facility] ([facility]) Nystatin 997068 UNT/ML Topical Cream Nystatin 06/13/2019 12:00:00 AM EDT active [facility] ([facility]) Fluconazole 150 MG Oral Tablet Fluconazole 06/13/2019 12:00:00 AM EDT completed [facility] ([facility]) Nystatin 577962 UNT/ML / Triamcinolone Acetonide 1 MG/ ML Topical Cream Nystatin-Triamcinolone 06/13/2019 12:00:00 AM EDT completed [facility] ([facility]) Fexofenadine hydrochloride 180 MG Oral Tablet Fexofenadine H CL 06/13/2019 12:00:00 AM EDT ORAL completed [facility] ([facility]) Doxycycline Monohydrate 100 MG Oral Capsule Doxycycline [place] hydrate 06/13/2019 12:00:00 AM EDT completed [facility] ([facility]) rivaroxaban 15 MG Oral Tablet [Xarelto] Xarelto 05/04/2019 12:00:0 0 AM EST ORAL active [facility] ([facility]) dabigatran etexilate 75 MG Oral Capsule [Pradaxa] Pradaxa 05/04/2019 12:00:00 AM EST ORAL completed [facility] ([facility]) Icaps 04/13/2019 12:00:00 AM EST ORAL active [facility] ([facility]) Bisoprolol Fumarate 5 MG Oral Tablet Bisoprolol Fumarate 04/2019 12:00:00 AM EST ORAL active [facility] ([facility]) Flonase Allergy Relief Flonase Allergy Relief 03/09/2019 12:00:[address] active [facility] ([facility]) 12 HR Guaifenesin 600 MG Extended Release Oral Tablet [Mucin ex] Mucinex 03/09/2019 12:00:00 AM EST ORAL active [facility] ([facility]) 600 mg 02/27/2019 12:00:00 AM EST tablet extended release 12hr 14 TAKE ONE TABLET BY MOUTH TWICE A DAY TAKE ONE TABLET BY MOUTH TWICE A DAY SOLD: 02/27/2019 [facility] 50 mcg/actuation 02/27/2019 12:00:00 AM EST spray,suspension 16 SPRAY 1 SPRAY IN EACH NOSTRIL TWO TIMES A DAY FOR 7 DAYS SPRAY 1 SPRAY IN EACH NOSTRIL TWO TIMES A DAY FOR 7 DAYS SOLD: 02/27/2019 [facility] 5 mg 02/14/2019 12:00:00 AM EST tablet 1 TAKE ONE TABLET BY MOUTH EVERY DAY AT BEDTIME TAKE ONE TABLET BY MOUTH EVERY DAY AT BEDTIME SOLD: 02/19/2019 [facility] 5 mg 02/14/2019 12:00:00 AM EST tablet 5 TAKE ONE TABLET BY MOUTH EVERY DAY AT BEDTIME TAKE ONE TABLET BY MOUTH EVERY DAY AT BEDTIME SOLD: 02/14/2019 [facility] 90 mcg/actuation 02/14/2019 12:00:00 AM EST HFA aerosol inha ler 8 INHALE TWO PUFFS BY MOUTH EVERY 4 HOURS NEEDED COUGH INHALE TWO PUFFS BY MOUTH EVERY 4 HOURS NEEDED COUGH SOLD: 02/14/2019 [facility] 100 unit/mL (3 mL) 02/14/2019 12:00:00 AM EST insulin pen 3 INJECT 30 UNITS UNDER THE SKIN TWO TIMES A DAY INJECT 30 UNITS UNDER THE SKIN TWO TIMES A DAY SOLD: 02/14/2019 [facility] 100-25 mcg/dose 02/14/2019 12:00:00 AM EST blister with reg ce 60 INHALE ONE PUFF BY MOUTH EVERY DAY AT 4P.M. INHALE ONE PUFF BY MOUTH EVERY DAY AT 4P.M. SOLD: 02/14/2019 [facility] 100,000 unit/gram 02/14/2019 12:00:00 AM EST powder 30 APPLY TOPICALLY FOR EXCORIATIONS UNDER BREASTS AND SKIN FOLDS TWO TIMES A DAY FOR 14 DAYS APPLY TOPICALLY FOR EXCORIATIONS UNDER BREASTS AND SKIN FOLDS TWO TIMES A DAY FOR 14 DAYS SOLD: 02/14/2019 [facility] 31 gauge x 5/16" 02/14/2019 12:00:00 AM EST needle 10 USE TWO TIMES A DAY WITH LANTUS USE TWO TIMES A DAY WITH LANTUS SOLD: 02/14/2019 [facility] 180 mg 02/14/2019 12:00:00 AM EST tablet 5 TAKE ONE TABLET BY MOUTH EVERY DAY AT BEDTIME FOR ALLERGIES TAKE ONE TABLET BY MOUTH EVERY DAY AT BE DTIME FOR ALLERGIES SOLD: 02/14/2019 [facility] 0.05 % 02/14/2019 12:00:00 AM EST dropperette 30 INSTILL ONE DROP IN EACH EYE TWICE A DAY FOR DRY EYES INSTILL ONE DROP IN EACH EYE TWICE A DAY FOR DRY EYES SOLD: 02/14/2019 [facility] Nystatin 100 UNT/MG Topical Powder Nystatin 01/28/2019 12:00:00 AM EST completed [facility] ([facility]) Hydrocortisone 10 MG/ML Topical Cream Hydrocortisone M aximum Strength Plus 12 Moisturizers 01/28/2019 12:00:00 AM EST completed [facility] ([facility]) Insurance Providers Payer name Policy type / Coverage type Policy ID Covered green party ID Covered green party's relationship to juan Policy Juan Plan Information EMEDNY [id number] SP [id number] [facility] [id number] SP [id number] MEDICAID M [id number] [facility](MCA[facility]) O [id number] S [id number] MEDICAID [id number] SP [id number] MEDICARE [id number] SP [id number] MEDICARE COMPLETE [id number] SP [id number] MEDICARE COMPLETE [id number] SP [id number] [facility] [id number] SP [id number] Medicaid Medigap Part B [id number] Self [id number] Medicare Natl Govt Servic Medicare Primary [id number] Self [id number] [facility] [employer] Commercial [id number] Self [id number] Medicaid Medigap Part B [id number] Self [id number] Medicare [place] Govt Servic Medicare Primary [id number] Self [id number] MEDICARE COMPLETE [id number] SP [id number] Medicaid Medigap Part B [id number] Self [id number] Medicare [place] Govt [employer] Medicare Primary [id number] Self [id number] Medicaid Medigap Part B [id number] Self [id number] Medicare [place] Govt Serv[employer] Medicare Primary [id number] Self [id number] Medicare (Part B) Medicare Primary [id number] Self [id number] BCBS [employer] U/W Medigap Part B [id number] Self [id number] Medicaid Medigap Part B [id number] Self [id number] SH U/HC-Marv Unrelated Medigap Part B [id number] Self [id number] [facility] Commercial [id number] Self [id number] [place] Medigap Part B [id number] Self [id number] Excell[employer] BC/BS Medigap Part B [id number] Self [id number] [employer] [facility] Commercial [id number] Self [id number] [employer] Commercial [id number] Self [id number] [facility] Commercial [id number] Self [id number] Medicaid Medigap Part B [id number] Self [id number] Medicare Natl Govt Servic Medicare Primary [id number] Self [id number] Medicaid Medigap Part B [id number] Self [id number] Medicare [place] Govt [employer] Medicare Primary [id number] Self [id number] Medicare (Part B) Medicare Primary [id number] Self [id number] Medicaid Medigap Part B [id number] Self [id number] SH U/HC-Marv Unrelated Medigap Part B [id number] Self [id number] [facility] Commercial [id number] Self [id number] BCBS [employer] Ppo U/W Medigap Part B [id number] Self [id number] Medicaid Medigap Part B [id number] Self [id number] Medicare [place] Govt Servic Medicare Primary [id number] Self [id number] MEDICAID [id number] SP [id number] MEDICARE COMPLETE [id number] SP [id number] Medicare (Part B) Medicare Primary [id number] Self [id number] Medicaid Medigap Part B [id number] Self [id number] U/HC-Marv Unrelated Medigap Part B [id number] Self [id number] [facility] Commercial [id number] Self [id number] Medicaid Medigap Part B [id number] Self [id number] Medicare Nat[place] Govt Servic Medicare Primary [id number] Self [id number] [facility] Medicare Sol Commercial [id number] Self [id number] Medicaid Medigap Part B [id number] Self [id number] Medicare [place] [employer]t [employer] Medicare Primary [id number] Self [id number] Medicaid Medigap Part B [id number] Self [id number] Medicare [place] Govt Serv[employer] Medicare Primary [id number] Self [id number] Medicare (Part B) Medicare Primary [id number] Self [id number] Medicaid Medigap Part B [id number] Self [id number] SH U/HC-Marv Unrelated Medigap Part B [id number] Self [id number] [facility] Commercial [id number] Self [id number] Medicaid Medigap Part B [id number] Self [id number] Medicare [place] [employer]t [employer] Medicare Primary [id number] Self [id number] Medicaid Medigap Part B [id number] Self [id number] Medicare [place] [employer] [employer] Medicare Primary [id number] Self [id number] United[employer]care Medicare [employer] Commercial [id number] Self [id number] Unitedare Medicare [place] Commercial [id number] Self [id number] Medicaid Medigap Part B 1 1 Self 1 1 Medicare [place] [employer]t Serv[place] Medicare Primary Self Medicare (Part B) Medicare Primary Self BCBS [employer] Ppo U/W Medigap Part B Self [facility] Commercial Self BC/BS [place] Medigap Part B Self Excellus BC/BS Medigap Part B Self [employer] Commercial Self [employer] Commercial Self Medicaid Medigap Part B 2 1 Self 2 1 SH U/HC-Marv Unrelated Medigap Part B Self [facility] MCR Commercial Self MEDICARE COMPLETE [id number] SP [id number] Medicare Medicare Primary Self BC/[place] Medigap Part B Self MEDICARE [id number] SP [id number] A [id number] Results ID Date Data Source [id number] 04/01/2020 01:00:00 PM EST [facility] Name Value Range Interpretation Code Description Data Elena rce(s) Supporting Document(s) SARS coronavirus 2 RNA Not Detected [facility] [place] This lab was ordered by [facility] and reported by [facility]. ID Date Data Source [id number] 03/25/2020 12:00:00 PM EST [facility] Name Value Range Interpretation Code Description Data Elena rce(s) Supporting Document(s) SARS coronavirus 2 RNA Not Detected [facility] [place] This lab was ordered by [facility] and reported by [facility]. ID Date Data Source [id number] 03/18/2020 06:00:00 AM EST [facility] Name Value Range Interpretation Code Description Data Elena rce(s) Supporting Document(s) SARS coronavirus 2 RNA Not Detected [facility] [place] This lab was ordered by [facility] and reported by [facility]. ID Date Data Source [id number] 03/11/2020 07:30:00 AM EST [facility] Name Value Range Interpretation Code Description Data Elena rce(s) Supporting Document(s) SARS coronavirus 2 RNA Not Detected [facility] [place] This lab was ordered by [facility] and reported by [facility]. ID Date Data Source [id number] 03/04/2020 10:00:00 AM EST [facility] Name Value Range Interpretation Code Description Data Elena rce(s) Supporting Document(s) SARS coronavirus 2 RNA [facility] This lab was ordered by [facility] and reported by [facility]. ID Date Data Source [id number] 03/01/2020 12:00:00 AM EST [facility] Name Value Range Interpretation Code Description Data Elena rce(s) Supporting Document(s) SARS-CoV2 Rapid Antigen [facility] This lab was ordered by [facility] and reported by [facility]. ID Date Data Source [id number] 02/26/2020 09:30:00 AM EST [facility] Name Value Range Interpretation Code Description Data Elena rce(s) Supporting Document(s) SARS coronavirus 2 RNA [facility] This lab was ordered by [facility] and reported by [facility]. ID Date Data Source [id number] 02/21/2020 12:03:00 PM EST [facility] Name Value Range Interpretation Code Description Data Elena rce(s) Supporting Document(s) SARS coronavirus 2 RNA [facility] This lab was ordered by [facility] and reported by [facility]. ID Date Data Source [id number] 02/19/2020 02:37:00 PM EST [facility] ([facility]) Name Value Range Interpretation Code Description Data Elena rce(s) Supporting Document(s) Urea nitrogen [Mass/volume] in Serum or Plasma 43 mg/dL 7-18 [facility] ([facility]) NOTE: BUN,CREAT VERIFIED Glucose [Mass/volume] in Serum or Plasma 276 mg/dL 74-99 [facility] ([facility]) 100-125 mg/dL PRE-DIABETES/FASTING >126 mg/dL DIABETES/FASTING Potassium [Moles/volume] in Serum or Plasma 4.4 meq/L 3.5-5.1 [facility] ([facility]) Creatinine 1.7 mg/dL 0.6-1.3 [facility] ([facility]) Chloride [Moles/volume] in Serum or Plasma 101 meq/L 98-107 [facility] ([facility]) Sodium [Moles/volume] in Serum or Plasma 140 meq/L 136-145 [facility] ([facility]) Calcium [Mass/volume] in Serum or Plasma 9.3 mg/dL 8.5-10.1 [facility] ([facility]) Glomerular filtration rate/1.73 sq M pre dicted among non-blacks [Volume Rate/Area] in Serum or Plasma by Creatinine-based formula (MDRD) 29 mL/min [facility] ([facility]) Carbon dioxide, total [Moles/volume] in Serum or Plasma 31 meq/L 21 -32 [facility] ([facility]) Glomerular filtration rate/1.73 sq M pre dicted among blacks [Volume Rate/Area] in Serum or Plasma by Creatinine-based formula (MDRD) 35 mL/min [facility] ([facility]) <content>CHRONIC KIDNEY DISEASE STAGING PER NKF</content>
<content></content>
<content>STAGE I & II GFR >= 60 NORMAL TO MILDLY DECREASED</content>
<content>STAGE III GFR 30-59 MODERATELY DECREASED</content>
<content>STAGE IV GFR 15-29 SEVERELY DECREASED</content>
<content>STAGE V GFR <15 VERY LITTLE GFR LEFT</content>
<content>ESRD GFR <15 ON ASSISTANT COMMUNITY DIRECTOR</content>
<content></content> ID Date Data Source [id number] 02/19/2020 02:37:00 PM EST [facility] ([facility]) Name Value Range Interpretation Code Description Data Elena rce(s) Supporting Document(s) Hemoglobin A1c/Hemoglobin.total in Blood 10.2 % [facility] Lab Result Notes: Pre-Diabetes 5.7 - 6.4 % Diabetes = or > 6.5% Glucose mean value [Mass/volume] in Blood Estimated fr om glycated hemoglobin 246 mg/dL 60-110 [facility] ID Date Data Source [id number] 02/19/2020 02:37:00 PM EST [facility] Name Value Range Interpretation Code Description Data Elena rce(s) Supporting Document(s) Erythrocytes [#/volume] in Blood by Automated count 3.76 x10*6/UL 4.2 0-6.30 [facility] Leukocytes [#/volume] in Blood by Automated count 7.0 x10*3/UL 4.1-10 .9 [facility] NOTE: CBC VERIFIED MCV 90.7 fL 80.0-97.0 [facility] Hematocrit [Volume Fraction] of Blood by Automated count 34.1 % 3 7.0-51.0 [facility] Hemoglobin [Mass/volume] in Blood 11.9 g/dL 12.0-18.0 [facility] Erythrocyte distribution width [Ratio] by Automated count 12.9 % 11.6-13.7 [facility] ([facility]) MCHC 35.0 g/dL 31.0-38.0 [facility] MCH 31.8 pg 26.0-32.0 [facility]) Platelets [#/volume] in Blood by Automated count 176 x10*3/UL 140-440 [facility] MPV 8.9 FL 7.8-11.0 [facility]) Lymph % 18.6 % 10.0-58.5 [facility]) Mid % 4.6 % 1.7-9.3 [facility] Neut % 76.8 % 37.0-92.0 [facility] Lymph # 1.3 x10*3/UL 0.6-4.1 [facility] ([facility]) Neut # 5.3 x10*3/UL 2.0-7.8 [facility] ([facility]) Mid # 0.4 x10*3/UL 0.1-0.6 [facility] ([facility]) ID Date Data Source [id number] 02/19/2020 02:37:00 PM EST [facility] ([facility]) Name Value Range Interpretation Code Description Data Elena rce(s) Supporting Document(s) Hemoglobin A1c/Hemoglobin.total in Blood Laboratory test result [facility] ID Date Data Source [id number] 02/16/2020 02:46:00 PM EST [facility] Name Value Range Interpretation Code Description Data Elena rce(s) Supporting Document(s) SARS coronavirus 2 RNA [facility] This lab was ordered by [facility] and reported by [facility]. ID Date Data Source [id number] 10/26/2019 01:13:00 AM EDT [facility] ([facility]) Name Value Range Interpretation Code Description Data Elena rce(s) Supporting Document(s) Glucose, Fasting 388 mg/dL 70-100 [facility] ([facility]) Creatinine For GFR 2.02 mg/dL 0.55-1.30 [facility] ([facility]) Blood Urea Nitrogen 60 mg/dL 7-18 [facility] ([facility]) Sodium Level 134 meq/L 136-145 [facility] ([facility]) Glomerular Filtration Rate 25.0 [facility] ([facility]) <content>Units are mL/min/1.73 m2</content>
<content></content>
<content>Chronic Kidney Disease Staging per NKF:</content>
<content></content>
<content>Stage I & II GFR >=60 Normal to Mildly Decreased</content>
<content>Stage III GFR 30- 59 Moderately Decreased</content>
<content>Stage IV GFR 15-29 Severely Decreased</content>
<content>Stage V GFR <15 Very Little GFR Left</content>
<content>ESRD GFR <15 on ASSISTANT COMMUNITY DIRECTOR</content>
<content></content> Potassium Serum 4.1 meq/L 3.5-5.1 [facility] ([facility]) Chloride Level 98 meq/L 98-107 [facility] ([facility]) Anion Gap 8 meq/L 8-16 [facility]) Carbon Dioxide Level 28 meq/L 21-32 [facility] ([facility]) Calcium Level 9.5 mg/dL 8.8-10.2 [facility] ([facility]) ID Date Data Source [id number] 10/26/2019 01:13:00 AM EDT [facility] ([facility]) Name Value Range Interpretation Code Description Data Elena rce(s) Supporting Document(s) CPK Creatine Phosphokinase 77 U/L 26-192 [facility] ([facility]) CK-MB Value Mass 1.3 ng/mL [facility] ([facility]) MB/CK Relative Index 1.69 [facility] ([facility]) <content>DIAGNOSIS CRITERIA</content>
<content>MMB ng/ml Relative Index (RI)</content>
<content>NON-AMI < or = 5 N/A</content>
<content>SORENSEN ZONE > 5 < or = 4</content>
<content>AMI > 5 > 4</content>
<content></content> Troponin I Laboratory test result [facility] ([facility]) <content>Troponin I Reference Interval f or Siemens [place] LOCI:</content>
<content></content>
<content>99th Percentile= 0.00-0.045 ng/ml</content>
<content></content>
<content>Risk Stratification:</content>
<content><= 0.10 ng/ml Decreased Risk for Adverse Clinical</content>
<content>Events.</content>
<content>0.10-1.50 ng/ml Increased Risk for Adverse Clinical</content>
<content>Events. Evaluation of additional</content>
<content>criterion and/or repeat testing in 2-6</content>
<content>hours is suggested to rule out myocardial</content>
<content>damage.</content>
<content>>= 1.50 ng/ml Indicative of Myocardial Injury.</content>
<content></content> ID Date Data Source [id number] 10/26/2019 01:13:00 AM EDT [facility] ([facility]) Name Value Range Interpretation Code Description Data Elena rce(s) Supporting Document(s) Inr 2.14 [facility] THERAPUTIC HUMAN INR VALUES INDICATIONS NORMAL RANGES PROPHYLAXIS/TREATMENT OF: VENOUS THROMBOSIS 2.0-3.0 PULMONARY EMBOLISM 2.0-3.0 PREVENTION OF SYSTEMIC EMBOLISM FROM: TISSUE HEART VALVES 2.0-3.0 ACUTE MYOCARDIAL INFARCTION 2.0-3.0 VALVULAR HEART DISEASE 2.0-3.0 ATRIAL FIBRILLATION 2.0-3.0 MECHANICAL VALVES(HIGH RISK) 2.5-3.5 RECURRENT MYOCARDIAL INFARCTION 2.5-3.5 Partial Thromboplastin Time 38.2 s 25.0-38.4 [facility] ([facility]) Prothrombin Time 24.4 s 11.8-14.0 [facility] ([facility]) ID Date Data Source [id number] 10/26/2019 01:13:00 AM EDT [facility] ([facility]) Name Value Range Interpretation Code Description Data Elena rce(s) Supporting Document(s) Red Blood Count 3.66 10 4.00-5.40 [facility] ([facility]) Hemoglobin 11.5 g/dL 12.0-15.5 [facility] ([facility]) White Blood Count 11.3 10 4.0-10.0 [facility] ([facility]) Mean Corpuscular Hemoglobin 31.4 pg 27.0-33.0 [facility] ([facility]) Hematocrit 34.2 % 36.0-47.0 [facility] Mean Corpuscular Volume 93.4 fl 80.0-96.0 [facility] ([facility]) Mean Corpuscular HGB Conc 33.6 g/dL 32.0-36.5 [facility] ([facility]) Platelet Count, Automated 158 10 150-450 [facility] ([facility]) Red Cell Distribution Width 13.4 % 11.5-14.5 [facility] ([facility]) Neutrophils % 79.7 % 36.0-66.0 [facility]) Lymph % 12.4 % 24.0-44.0 [facility]) [place] % 6.5 % 0.0-5.0 [facility]) Immature Granulocyte % 0.5 % 0-3.0 [facility] ([facility]) Baso % 0.4 % 0.0-1.0 [facility]) Eos % 0.5 % 0.0-3.0 [facility]) Nucleated Red Blood Cell % 0.0 % 0-0 [facility] ([facility]) Neutrophils # 9.0 10 1.5-8.5 [facility]) Lymph # 1.4 10 1.5-5.0 [facility]) [place] # 0.7 10 0.0-0.8 [facility]) Eos # 0.1 10 0.0-0.5 [facility]) Baso # 0.0 10 0.0-0.2 [facility]) ID Date Data Source [id number] 08/24/2019 12:00:00 AM EDT [facility] Name Value Range Interpretation Code Description Data Elena rce(s) Supporting Document(s) 2019-nCoV N XXX Ql ESHA N2 [facility] This lab [facility] and reported by [facility]. ID Date Data Source [id number] 03/23/2019 12:15:00 PM EST [facility] Name Value Range Interpretation Code Description Data Elena rce(s) Supporting Document(s) Cobalamin (Vitamin B12) [Mass/volume] in Serum or Plasma Lab oratory test result [id number] [facility] VITAMIN B12 NORMAL RANGE NORMAL 247 - 911 PG/ML INDETERMINATE 211 - 246 PG/ML DEFICIENT LESS THAN 211 PG/ML Parathyrin.intact [Mass/volume] in Serum or Plasma 10.1 pg/mL 18.5-88 .0 [facility] ID Date Data Source [id number] 03/23/2019 12:14:00 PM EST [facility] ([facility] Name Value Range Interpretation Code Description Data Elena rce(s) Supporting Document(s) Calcidiol [Mass/volume] in Serum or Plasma 33.4 24.0-80.0 [facility] ([facility]) This test was performed using [employer] I P Vitamin D immunoassay kit. Values obtained with different assay methods should not be used interchangeably. ID Date Data Source [id number] 03/23/2019 12:14:00 PM EST [facility] Name Value Range Interpretation Code Description Data Elena rce(s) Supporting Document(s) Thyrotropin [Units/volume] in Serum or Plasma by Detec tion limit <= 0.05 mIU/L 2.21 uIU/mL 0.36-3.74 [facility] ID Date Data Source [id number] 03/23/2019 12:14:00 PM EST [facility] Name Value Range Interpretation Code Description Data Elena rce(s) Supporting Document(s) Glucose [Mass/volume] in Serum or Plasma 175 mg/dL 74-99 [facility] ([facility]) 100-125 mg/dL PRE-DIABETES/FASTING >126 mg/dL DIABETES/FASTING Sodium [Moles/volume] in Serum or Plasma 136 meq/L 136-145 [facility] Urea nitrogen [Mass/volume] in Serum or Plasma 47 mg/dL 7-18 [facility] ([facility]) Creatinine 1.7 mg/dL 0.6-1.3 [facility] Chloride [Moles/volume] in Serum or Plasma 99 meq/L 98-107 [facility] ([facility]) Potassium [Moles/volume] in Serum or Plasma 4.3 meq/L 3.5-5.1 [facility] ([facility]) Carbon dioxide, total [Moles/volume] in Serum or Plasma 31 meq/L 21 -32 [facility] ([facility]) Glomerular filtration rate/1.73 sq M pre dicted among non-blacks [Volume Rate/Area] in Serum or Plasma by Creatinine-based formula (MDRD) 29 mL/min [facility] ([facility]) Glomerular filtration rate/1.73 sq M pre dicted among blacks [Volume Rate/Area] in Serum or Plasma by Creatinine-based formula (MDRD) 35 mL/min [facility] <content>CHRONIC KIDNEY DISEASE STAGING PER NKF</content>
<content></content>
<content>STAGE I & II GFR >= 60 NORMAL TO MILDLY DECREASED</content>
<content>STAGE III GFR 30-59 MODERATELY DECREASED</content>
<content>STAGE IV GFR 15-29 SEVERELY DECREASED</content>
<content>STAGE V GFR <15 VERY LITTLE GFR LEFT</content>
<content>ESRD GFR <15 ON ASSISTANT COMMUNITY DIRECTOR</content>
<content></content> Calcium [Mass/volume] in Serum or Plasma 11.6 mg/dL 8.5-10.1 [facility] ([facility]) NOTE: verified ID Date Data Source [id number] 03/23/2019 12:14:00 PM EST [facility] ([facility]) Name Value Range Interpretation Code Description Data Elena rce(s) Supporting Document(s) Magnesium 2.1 mg/dL 1.8-2.4 [facility]) ID Date Data Source [id number] 03/23/2019 12:14:00 PM EST [facility] ([facility]) Name Value Range Interpretation Code Description Data Elena rce(s) Supporting Document(s) Glucose mean value [Mass/volume] in Blood Estimated fr om glycated hemoglobin 186 mg/dL 60-110 [facility] ([facility] ) Hemoglobin A1c/Hemoglobin.total in Blood 8.1 g/dL 4.8-5.6 [facility] Lab Result Notes: Pre-Diabetes 5.7 - 6.4 % Diabetes = or > 6.5% ID Date Data Source [id number] 03/23/2019 12:14:00 PM EST [facility] ([facility]) Name Value Range Interpretation Code Description Data Elena rce(s) Supporting Document(s) Erythrocytes [#/volume] in Blood by Automated count 3.74 x10*6/UL 4.2 0-6.30 [facility] Leukocytes [#/volume] in Blood by Automated count 8.7 x10*3/UL 4.1-10 .9 [facility] Hemoglobin [Mass/volume] in Blood 11.5 g/dL 12.0-18.0 [facility] Hematocrit [Volume Fraction] of Blood by Automated count 33.3 % 3 7.0-51.0 [facility] ([facility]) MCV 89.1 fL 80.0-97.0 [facility]) MCH 30.9 pg 26.0-32.0 [facility] ([facility]) MCHC 34.7 g/dL 31.0-38.0 [facility] ([facility]) Platelets [#/volume] in Blood by Automated count 199 x10*3/UL 140-440 [facility] Erythrocyte distribution width [Ratio] by Automated count 12.7 % 11.6-13.7 [facility] ([facility]) MPV 9.3 FL 7.8-11.0 [facility] [facility]) Lymph % 18.1 % 10.0-58.5 [facility] [facility]) Neut % 76.9 % 37.0-92.0 [facility] [facility]) Mid % 5.0 % 1.7-9.3 [facility]) Neut # 6.7 x10*3/UL 2.0-7.8 [facility] ([facility]) Lymph # 1.5 x10*3/UL 0.6-4.1 [facility] ([facility]) Mid # 0.5 x10*3/UL 0.1-0.6 [facility] ([facility]) ID Date Data Source [id number] 03/23/2019 12:14:00 PM EST [facility] ([facility]) Name Value Range Interpretation Code Description Data Elena rce(s) Supporting Document(s) Parathyrin.intact [Mass/volume] in Serum or Plasma <pending> [facility] ([facility]) ID Date Data Source [id number] 02/10/2019 05:38:00 AM EST [facility] ([facility]) Name Value Range Interpretation Code Description Data Elena rce(s) Supporting Document(s) Thyrotropin [Units/volume] in Serum or Plasma by Detec tion limit <= 0.05 mIU/L 3.130 uIU/ML 0.358-3.740 [facility] ([facility] ) Thyroxine (T4) free [Mass/volume] in Serum or Plasma 1.04 ng/dL 0.76- 1.46 [facility] ([facility]) ID Date Data Source [id number] 02/10/2019 05:38:00 AM EST [facility] ([facility]) Name Value Range Interpretation Code Description Data Elena rce(s) Supporting Document(s) Creatinine For GFR 1.68 mg/dL 0.55-1.30 [facility] ([facility]) Blood Urea Nitrogen 35 mg/dL 7-18 [facility] ([facility]) Glucose, Fasting 137 mg/dL 70-100 [facility] ([facility]) Sodium Level 141 meq/L 136-145 [facility] ([facility]) Glomerular Filtration Rate 31.0 [facility] ([facility]) <content>Units are mL/min/1.73 m2</content>
<content></content>
<content>Chronic Kidney Disease Staging per NKF:</content>
<content></content>
<content>Stage I & II GFR >=60 Normal to Mildly Decreased</content>
<content>Stage III GFR 30- 59 Moderately Decreased</content>
<content>Stage IV GFR 15-29 Severely Decreased</content>
<content>Stage V GFR <15 Very Little GFR Left</content>
<content>ESRD GFR <15 on ASSISTANT COMMUNITY DIRECTOR</content>
<content></content> Carbon Dioxide Level 29 meq/L 21-32 [facility] ([facility]) Chloride Level 103 meq/L 98-107 [facility] ([facility]) Potassium Serum 4.8 meq/L 3.5-5.1 [facility] ([facility]) Anion Gap 9 meq/L 8-16 [facility] [facility]) Calcium Level 9.9 mg/dL 8.8-10.2 [facility] ([facility]) ID Date Data Source [id number] 02/10/2019 05:38:00 AM EST [facility] ([facility]) Name Value Range Interpretation Code Description Data Elena rce(s) Supporting Document(s) Ast/Sgot 23 U/L 7-37 [facility] [facility]) Bilirubin,Total 0.4 mg/dL 0.2-1.0 [facility] ([facility]) Alkaline Phosphatase 65 U/L 45-117 [facility] ([facility]) Alt/SGPT 19 U/L 12-78 [facility] [facility] Total Protein 6.8 GM/DL 6.4-8.2 [facility] ([facility]) Albumin 3.4 GM/DL 3.2-5.2 [facility] [facility]) Bilirubin,Direct < 0.1 mg/dL 0.0-0.2 [facility] ([facility]) Albumin/Globulin Ratio 1.00 1.00-1.93 [facility] ([facility]) ID Date Data Source [id number] 02/10/2019 05:38:00 AM EST [facility] ([facility]) Name Value Range Interpretation Code Description Data Elena rce(s) Supporting Document(s) CK-MB Value Mass 1.2 ng/mL [facility] ([facility]) MB/CK Relative Index 1.33 [facility] <content>DIAGNOSIS CRITERIA</content>
<content>MMB ng/ml Relative Index (RI)</content>
<content>NON-AMI < or = 5 N/A</content>
<content>SORENSEN ZONE > 5 < or = 4</content>
<content>AMI > 5 > 4</content>
<content></content> CPK Creatine Phosphokinase 90 U/L 26-192 [facility] ([facility]) Troponin I < 0.02 ng/mL [facility]) <content>Troponin I Reference Interval f or Siemens [place] LOCI:</content>
<content></content>
<content>99th Percentile= 0.00-0.045 ng/ml</content>
<content></content>
<content>Risk Stratification:</content>
<content><= 0.10 ng/ml Decreased Risk for Adverse Clinical</content>
<content>Events.</content>
<content>0.10-1.50 ng/ml Increased Risk for Adverse Clinical</content>
<content>Events. Evaluation of additional</content>
<content>criterion and/or repeat testing in 2-6</content>
<content>hours is suggested to rule out myocardial</content>
<content>damage.</content>
<content>>= 1.50 ng/ml Indicative of Myocardial Injury.</content>
<content></content> ID Date Data Source [id number] 02/10/2019 05:38:00 AM EST [facility]) Name Value Range Interpretation Code Description Data Elena rce(s) Supporting Document(s) White Blood Count 9.1 10 4.0-10.0 [facility]) Hemoglobin 10.6 g/dL 12.0-15.5 [facility] [facility] Red Blood Count 3.51 10 4.00-5.40 [facility] ([facility]) Hematocrit 33.3 % 36.0-47.0 [facility] Mean Corpuscular Hemoglobin 30.2 pg 27.0-33.0 [facility] ([facility]) Mean Corpuscular Volume 94.9 fl 80.0-96.0 [facility] ([facility]) Platelet Count, Automated 188 10 150-450 [facility] ([facility]) Mean Corpuscular HGB Conc 31.8 g/dL 32.0-36.5 [facility] ([facility]) Red Cell Distribution Width 13.6 % 11.5-14.5 [facility] ([facility]) Neutrophils % 75.2 % 36.0-66.0 [facility] ([facility]) Lymph % 16.0 % 24.0-44.0 [facility] [facility]) Eos % 1.5 % 0.0-3.0 [facility] [facility]) [place] % 6.7 % 0.0-5.0 [facility]) Baso % 0.2 % 0.0-1.0 [facility]) Nucleated Red Blood Cell % 0.0 % 0-0 [facility] ([facility]) Immature Granulocyte % 0.4 % 0-3.0 [facility] ([facility]) Neutrophils # 6.9 10 1.5-8.5 [facility] ([facility]) Lymph # 1.5 10 1.5-5.0 [facility] [facility]) Eos # 0.1 10 0.0-0.5 [facility]) [place] # 0.6 10 0.0-0.8 [facility]) Baso # 0.0 10 0.0-0.2 [facility]) Procedure Vital Signs ID Date Data Source [id number] Name Value Range Interpretation Code Description Data Source(s) Body mass index (BMI) [Ratio] 46.1 kg/m2 46.1 k g/m2 [facility] ([facility]) Body weight 236.00 [lb_av] 236.00 [lb_av] [facility] ([facility]) Body height 60 [in_i] 60 [in_i] [facility] ([facility]) 5'0" Heart rate 68 /min 68 /min [facility] ([facility]) Diastolic blood pressure 72 mm[Hg] 72 mm[Hg] [facility]) RT Arm Systolic blood pressure 126 mm[Hg] 126 mm[Hg] [facility] ([facility]) RT Arm Oxygen saturation in Arterial blood by Pulse oximetry 94 % 94 % [facility]) RM Air Heart rate 78 /min 78 /min [facility]) Diastolic blood pressure 70 mm[Hg] 70 mm[Hg] [facility]) Systolic blood pressure 128 mm[Hg] 128 mm[Hg] [facility]) Oxygen saturation in Arterial blood by Pulse oximetry 97 % 97 % [facility]) RM Air Heart rate 85 /min 85 /min [facility]) Diastolic blood pressure 70 mm[Hg] 70 mm[Hg] [facility] [facility] Systolic blood pressure 110 mm[Hg] 110 mm[Hg] [facility] ([facility]) Respiratory rate 18 /min 18 /min [facility] ( [facility]) Body temperature 98.3 [degF] 98.3 [degF] [facility] ([facility]) Oxygen saturation in Arterial blood by Pulse oximetry 94 % 94 % [facility] ([facility]) RM Air Heart rate 62 /min 62 /min [facility] ([facility]) Diastolic blood pressure 70 mm[Hg] 70 mm[Hg] [facility] ([facility]) Systolic blood pressure 128 mm[Hg] 128 mm[Hg] [facility] ([facility])
[2020-04-06 17:41] LABS: BASO % 0.2 % (0.0-1.0); EOS % 0.3 % (0.0-3.0); HEMATOCRIT 29.8 % (36.0-47.0); HEMOGLOBIN 9.4 g/dl (12.0-15.5); LYMPH # 0.9 10^3/uL (1.5-5.0); LYMPH % 7.3 % (24.0-44.0); MEAN CORPUSCULAR HEMOGLOBIN 30.2 pg (27.0-33.0); MEAN CORPUSCULAR HGB CONC 31.5 g/dl (32.0-36.5); MEAN CORPUSCULAR VOLUME 95.8 fl (80.0-96.0); MONO % 8.7 % (0.0-5.0); NEUTROPHILS # 9.7 10^3/uL (1.5-8.5); NEUTROPHILS % 82.7 % (36.0-66.0); PLATELET COUNT, AUTOMATED 209 10^3/uL (150-450); RED BLOOD COUNT 3.11 10^6/uL (4.00-5.40); WHITE BLOOD COUNT 11.7 10^3/uL (4.0-10.0)
[2020-04-06] MEDS ORDERED: RIVAROXABAN 15 MG TAB (XARELTO) PO SCH (18:00)
[2020-04-06 18:06] LABS: OSMOLALITY SERUM 299 MOSM/KG (280-301)
[2020-04-06 18:13] LABS: RSV AMPLIFICATION NEGATIVE (NEGATIVE)
[2020-04-06 18:15] LABS: ALBUMIN 3.1 GM/DL (3.2-5.2); ALT/SGPT 17 U/L (12-78); BILIRUBIN,DIRECT 0.2 MG/DL (0.0-0.2); BILIRUBIN,TOTAL 0.6 MG/DL (0.2-1.0); BLOOD UREA NITROGEN 49 MG/DL (7-18); CALCIUM LEVEL 9.3 MG/DL (8.8-10.2); CARBON DIOXIDE LEVEL 27 MEQ/L (21-32); CHLORIDE LEVEL 99 MEQ/L (98-107); CK-MB VALUE MASS < 1.0 NG/ML (<3.6); CPK CREATINE PHOSPHOKINASE 43 U/L (26-192); CREATININE FOR GFR 1.98 MG/DL (0.55-1.30); GLOMERULAR FILTRATION RATE 25.6 (>32); GLUCOSE, FASTING 199 MG/DL (70-100); MB/CK RELATIVE INDEX 2.33 (< OR =4); POTASSIUM SERUM 4.9 MEQ/L (3.5-5.1); SODIUM LEVEL 137 MEQ/L (136-145); TOTAL PROTEIN 6.8 GM/DL (6.4-8.2); TROPONIN I < 0.02 NG/ML (< 0.10)
[2020-04-06] MEDS ORDERED: LevoFLOXacin IV 750 MG in IV 1 EA IV ONE (18:30)
[2020-04-06] MEDS ORDERED: ACETAMINOPHEN TAB 650MG DOSE (2X325MG) PO ONE (18:30)
--- NOTE | 2020-04-06 18:40 | REP ---
INDICATION: Altered Mental Status. COMPARISON: Comparison chest x-ray June 29, 2018. TECHNIQUE: Portable upright AP chest radiograph. FINDINGS: There is a large dense opacity in left perihilar region which may be mass or infiltrate. There increased markings right upper lobe and right base appear to be infiltrate. Heart is enlarged unchanged. Pleural angles are sharp. Vascular calcification is noted.. IMPRESSION: Large opacity in the left perihilar region infiltrate versus mass. Infiltrates are noted in the right upper lobe and in the bases.. <Electronically signed by Roverto Roberto > 04/06/20 1513
--- NOTE | 2020-04-06 18:43 | REPVR ---
PROCEDURE INFORMATION: Exam: CT Head Without Contrast Exam date and time: 04/06/2020 6:22 PM Age: 85 years old Clinical indication: Altered mental status/memory loss; Additional info: AMS TECHNIQUE: Imaging protocol: Computed tomography of the head without contrast. Radiation optimization: All CT scans at this facility use at least one of these dose optimization techniques: automated exposure control; mA and/or kV adjustment per patient size (includes targeted exams where dose is matched to clinical indication); or iterative reconstruction. COMPARISON: CT Head without contrast 10/26/2019 12:10 AM FINDINGS: Brain: The brain demonstrates diffuse volume loss. There is white matter hypodensity most consistent with chronic small vessel ischemic change. No visible evolving territorial infarct. No hemorrhage. Patchy hypodensities again demonstrated in the basal ganglia and thalami in keeping with chronic ischemia. Cerebral ventricles: The ventricles are mildly enlarged in keeping with volume loss. Bones/joints: Degenerative changes of the temporomandibular joints. No acute fracture. Paranasal sinuses: Trace maxillary sinus mucosal thickening. Dependent mucosal disease versus fluid in the left sphenoid sinus. Mastoid air cells: Visualized mastoid air cells are well aerated. Soft tissues: Unremarkable. IMPRESSION: No acute intracranial abnormality seen. Electronically signed by: Michelle Dang On 04/06/2020 18:43:08 PM
--- NOTE | 2020-04-06 19:25 | IPNPDOC ---
Text Note Date of Service The patient was seen on 04/06/20. NOTE time of service 825pm is an 85 yr old former [employer] w a hx of A fib, pulm HTN/ HFpEF, EDVIN (bipap 16/10), obesity, smoking induced chronic bronchitis, HTN, DLP, IDDM, hiatal hernia who was sent from her NH after having a fall while she was on the toilet; thereafter she was not acting like herself. Vital Signs Date Time Temp Pulse Resp B/P (MAP) Pulse Ox O2 Delivery O2 Flow Rate FiO2 04/06/20 17:03 103 20 132/56 (81) 96 04/06/20 17:20 100.9 Nasal Cannula 4.0 PE: confused, short of breath, using accessory muscles, breath sounds diminished at lung bases #Fall / syncope ? - telemetry / f/u orthostats #Encephalopathy - neurochecks/ f/u VBG to r/o hypercapnea #Multifactorial dyspnea- continuous pulse ox / supplemental O2 / treat for PNA & COPD #Sepsis likely 2/2 URI - treat for PNA /acetaminophen # COVID PNA vs atypical PNA - treat for PNA /f/u repeat COVID test, COVID labs, sputum cx, legionella, mycoplasma, MRSA and strep pneumonia #Interstial Lung Disease (per CT) vs Acute COPD ? (per consultation note done several years ago the patient has smoking induced chronic bronchitis ) - will order levalbuterol (which is less likely to cause rapid afib than albuterol) PRN and albuterol with ipratropium scheduled #EDVIN - biPAP 16/10 Rest per H&P VS,Fishbone, I+O VS, Fishbone, I+O Laboratory Tests 04/06/20 17:13 Vital Signs Date Time Temp Pulse Resp B/P (MAP) Pulse Ox O2 Delivery O2 Flow Rate FiO2 04/06/20 18:56 96 18 94 Nasal Cannula 4.0 04/06/20 17:20 100.9 132/56 (81) BETH MCGILL MD Apr 06, 2020 19:25
[2020-04-06] MEDS ORDERED: XARE15TA PO (19:30)
[2020-04-06] MEDS ORDERED: TORS10TA3 PO (19:30)
[2020-04-06] MEDS ORDERED: DRIS50003 PO (19:30)
[2020-04-06] MEDS ORDERED: PRES10CA2 PO (19:30)
[2020-04-06] MEDS ORDERED: HUMA100I5 SC (19:30)
[2020-04-06] MEDS ORDERED: OMEP1CAP73 PO (19:30)
[2020-04-06] MEDS ORDERED: LORA-674 PO (19:30)
[2020-04-06] MEDS ORDERED: DOXE1CAP PO (19:30)
[2020-04-06] MEDS ORDERED: [UNRECOGNIZED DRUG - CODE] PO (19:30)
[2020-04-06] MEDS ORDERED: ONDA4TAB6 PO (19:30)
--- OUTSIDE RECORDS SUMMARY | 2020-04-06 19:31 | CCD ---
Author Author [facility] Organization [facility] Address Unknown Phone Unavailable Care Team Providers [facility] Administrator Name Role Phone Daphnie, Fanny DRYWALL SANDER Unavailable Unavailable Daphnie, Fanny DRYWALL SANDER Unavailable Unavailable Daphnie, Fanny DRYWALL SANDER Unavailable Unavailable Daphnie, Fanny DRYWALL SANDER Unavailable Unavailable Daphnie, Fanny DRYWALL SANDER Unavailable Unavailable Daphnie, Fanny DRYWALL SANDER Unavailable Unavailable Daphnie, Fanny DRYWALL SANDER Unavailable Unavailable Daphnie, Fanny DRYWALL SANDER Unavailable Unavailable Daphnie, Fanny DRYWALL SANDER Unavailable Unavailable Daphnie, Fanny DRYWALL SANDER Unavailable Unavailable Daphnie, Fanny DRYWALL SANDER Unavailable Unavailable Daphnie, Fanny DRYWALL SANDER Unavailable Unavailable Daphnie, Fanny DRYWALL SANDER Unavailable Unavailable Daphnie, Fanny DRYWALL SANDER Unavailable Unavailable Daphnie, Fanny DRYWALL SANDER Unavailable Unavailable Daphnie, Fanny DRYWALL SANDER Unavailable Unavailable Daphnie, Fanny DRYWALL SANDER Unavailable Unavailable Daphnie, Fanny DRYWALL SANDER Unavailable Unavailable Daphnie, Fanny DRYWALL SANDER Unavailable Unavailable Daphnie, Fanny DRYWALL SANDER Unavailable Unavailable Daphnie, Fanny DRYWALL SANDER Unavailable Unavailable Daphnie, Fanny DRYWALL SANDER Unavailable Unavailable Daphnie, Fanny DRYWALL SANDER Unavailable Unavailable Daphnie, Fanny DRYWALL SANDER Unavailable Unavailable Daphnie, Fanny DRYWALL SANDER Unavailable Unavailable Daphnie, Fanny DRYWALL SANDER Unavailable Unavailable Daphnie, Fanny DRYWALL SANDER Unavailable Unavailable Sai SHELL JR, PA-C Unavailable [...] J JOIE PA-C Unavailable Unavailable Theo, Millicent DRYWALL SANDER Unavailable Unavailable Theo, Millicent DRYWALL SANDER Unavailable Unavailable Theo, Millicent DRYWALL SANDER Unavailable Unavailable Theo, Millicent DRYWALL SANDER Unavailable Unavailable Theo, Millicent DRYWALL SANDER Unavailable Unavailable Theo, Millicent DRYWALL SANDER Unavailable Unavailable Theo, Millicent DRYWALL SANDER Unavailable Unavailable Theo, Millicent DRYWALL SANDER Unavailable Unavailable Theo, Millicent DRYWALL SANDER Unavailable Unavailable Theo, Millicent DRYWALL SANDER Unavailable Unavailable Theo, Millicent DRYWALL SANDER Unavailable Unavailable Theo, Millicent DRYWALL SANDER Unavailable Unavailable Theo, Millicent DRYWALL SANDER Unavailable Unavailable Theo, Millicent DRYWALL SANDER Unavailable Unavailable Theo, Millicent DRYWALL SANDER Unavailable Unavailable Theo, Millicent DRYWALL SANDER Unavailable Unavailable Theo, Millicent DRYWALL SANDER Unavailable Unavailable Theo, Millicent DRYWALL SANDER Unavailable Unavailable Theo, Millicent DRYWALL SANDER Unavailable Unavailable Theo, Millicent DRYWALL SANDER Unavailable Unavailable Theo, Millicent DRYWALL SANDER Unavailable Unavailable Theo, Millicent DRYWALL SANDER Unavailable Unavailable Theo, Millicent DRYWALL SANDER Unavailable Unavailable Theo, Millicent DRYWALL SANDER Unavailable Unavailable Theo, Millicent DRYWALL SANDER Unavailable Unavailable Theo, Millicent DRYWALL SANDER Unavailable Unavailable Theo, Millicent DRYWALL SANDER Unavailable Unavailable Theo, Millicent DRYWALL SANDER Unavailable Unavailable Theo, Millicent DRYWALL SANDER Unavailable Unavailable Theo, Millicent DRYWALL SANDER Unavailable Unavailable Theo, Millicent DRYWALL SANDER Unavailable Unavailable Theo, Millicent DRYWALL SANDER Unavailable Unavailable Theo, Millicent DRYWALL SANDER Unavailable Unavailable Theo, Millicent DRYWALL SANDER Unavailable Unavailable Theo, Millicent DRYWALL SANDER Unavailable Unavailable Theo, Millicent DRYWALL SANDER Unavailable Unavailable Theo, Millicent DRYWALL SANDER Unavailable Unavailable Theo, Mililcent DRYWALL SANDER Unavailable Unavailable Theo, Millicent DRYWALL SANDER Unavailable Unavailable Theo, Millicent DRYWALL SANDER Unavailable Unavailable Theo, Millicent DRYWALL SANDER Unavailable Unavailable Theo, Millicent DRYWALL SANDER Unavailable Unavailable Theo, Millicent DRYWALL SANDER Unavailable Unavailable Theo, Millicent DRYWALL SANDER Unavailable Unavailable Theo, Millicent DRYWALL SANDER Unavailable Unavailable Theo, Millicent DRYWALL SANDER Unavailable Unavailable Theo, Millicent DRYWALL SANDER Unavailable Unavailable Theo, Millicent DRYWALL SANDER Unavailable Unavailable Theo, Millicent DRYWALL SANDER Unavailable Unavailable Theo, Millicent DRYWALL SANDER Unavailable Unavailable Theo, Millicent DRYWALL SANDER Unavailable Unavailable Theo, Millicent DRYWALL SANDER Unavailable Unavailable Theo, Millicent DRYWALL SANDER Unavailable Unavailable Theo, Millicent DRYWALL SANDER Unavailable Unavailable Theo, Millicent DRYWALL SANDER Unavailable Unavailable Theo, Millicent DRYWALL SANDER Unavailable Unavailable Theo, Millicent DRYWALL SANDER Unavailable Unavailable Theo, Millicent DRYWALL SANDER Unavailable Unavailable Theo, Millicent DRYWALL SANDER Unavailable Unavailable Theo, Millicent DRYWALL SANDER Unavailable Unavailable Theo, Millicent DRYWALL SANDER Unavailable Unavailable Theo, Millicent DRYWALL SANDER Unavailable Unavailable Theo, Millicent DRYWALL SANDER Unavailable Unavailable Theo, Millicent DRYWALL SANDER Unavailable Unavailable Theo, Millicent DRYWALL SANDER Unavailable Unavailable Theo, Millicent DRYWALL SANDER Unavailable Unavailable Theo, Millicent DRYWALL SANDER Unavailable Unavailable Theo, Millicent DRYWALL SANDER Unavailable Unavailable Theo, Millicent DRYWALL SANDER Unavailable Unavailable Theo, Millicent DRYWALL SANDER Unavailable Unavailable Theo, Millicent DRYWALL SANDER Unavailable Unavailable Theo, Millicent DRYWALL SANDER Unavailable Unavailable Theo, Millicent DRYWALL SANDER Unavailable Unavailable Theo, Millicent DRYWALL SANDER Unavailable Unavailable Theo, Millicent DRYWALL SANDER Unavailable Unavailable Theo, Millicent DRYWALL SANDER Unavailable Unavailable Theo, Millicent DRYWALL SANDER Unavailable Unavailable Theo, Millicent DRYWALL SANDER Unavailable Unavailable Theo, Millicent DRYWALL SANDER Unavailable Unavailable Theo, Millicent DRYWALL SANDER Unavailable Unavailable Theo, Millicent DRYWALL SANDER Unavailable Unavailable Theo, Millicent DRYWALL SANDER Unavailable Unavailable Theo, Millicent DRYWALL SANDER Unavailable Unavailable Theo, Millicent DRYWALL SANDER Unavailable Unavailable Theo, Millicent DRYWALL SANDER Unavailable Unavailable Theo, Millicent DRYWALL SANDER Unavailable Unavailable Theo, Millicent DRYWALL SANDER Unavailable Unavailable Theo, Millicent DRYWALL SANDER Unavailable Unavailable Theo, Millicent DRYWALL SANDER Unavailable Unavailable Theo, Millicent DRYWALL SANDER Unavailable Unavailable Theo, Millicent DRYWALL SANDER Unavailable Unavailable Theo, Millicent DRYWALL SANDER Unavailable Unavailable Theo, Millicent DRYWALL SANDER Unavailable Unavailable Theo, Millicent DRYWALL SANDER Unavailable Unavailable Theo, Millicent DRYWALL SANDER Unavailable Unavailable Theo, Millicent DRYWALL SANDER Unavailable Unavailable Theo, Millicent DRYWALL SANDER Unavailable Unavailable Theo, Millicent DRYWALL SANDER Unavailable Unavailable Theo, Millicent DRYWALL SANDER Unavailable Unavailable Theo, Millicent DRYWALL SANDER Unavailable Unavailable Theo, Millicent DRYWALL SANDER Unavailable Unavailable Theo, Millicent DRYWALL SANDER Unavailable Unavailable Theo, Millicent DRYWALL SANDER Unavailable Unavailable Theo, Millicent DRYWALL SANDER Unavailable Unavailable Theo, Millicetn DRYWALL SANDER Unavailable Unavailable Theo, Millicent DRYWALL SANDER Unavailable Unavailable Re-disclosure Warning The records that [...] is protected by Article 27-F of the [facility] Public Health law. If you continue you may have access to information: Regarding HIV / AIDS; Provided by facilities licensed or operated by the [facility] Office of Mental Health; or Provided by the [facility] Office for People With Developmental Disabilities. If such information is present, then the following [facility] mandated warning applies: This information has [...] law may result in a fine or usp sentence or both. A general authorization for the release of medical or other information is NOT sufficient authorization for further disc losure. Family History Family Member Name Family Member Gender Family Member Status Date o f Status Description Data Source(s) Unknown Unknown Problem [facility] Unknown Female Problem [facility] Unknown Female Problem [facility]) Unknown Female Problem [facility] ([facility]) Encounters Encounter Providers Location Date Indications Data Source(s ) Outpatient Attender: Fanny Langley 01:00:00 PM EST [facility] ([facility] ) Outpatient Attender: Fanny Langley 12:40:00 PM EST [facility] ([facility] ) Outpatient Attender: JOIE Langley 0 11/03/2019 11:40:00 AM EDT [facility] ([facility] ) Outpatient Attender: Millicent Langley 0 08/25/2019 03:00:00 PM EDT [facility] ([facility] ) Outpatient Attender: Millicent Langley 0 03/23/2019 01:30:00 PM EST [facility] ([facility] ) Outpatient Referrer: Millicent ERICKSON 02/22/2019 09:46:0 0 PM EST [facility] Immunizations Vaccine Date Status Description Data Source(s) This CVX code allows reporting of a vacc ination when formulation is unknown (for example, when recording a Influenza vaccination when noted on a vaccination card) 12/21/2019 11:32:00 AM EDT completed [facility] T ([facility]) INFLUENZA VIRUS VACCINE QUADRIVAL SPLIT 2019-21(65 YR UP)/PF 12/21/2019 12:00:00 AM EDT completed [facility] Medications Medication Brand Name Start Date Product Form Dose Route Admi nistrative Instructions Pharmacy Instructions Status Indications Reaction Description Data Source(s) Calcium Carbonate 1250 MG / Cholecalciferol 200 UNT Or al Tablet Oyster Shell Calcium/D 03/15/2020 12:00:00 AM EST active [facility] ([facility]) Famotidine 20 MG Oral Tablet Famotidine 02/19/2020 12:00:00 AM EST ORAL active [facility] ([facility]) Lisinopril 2.5 MG Oral Tablet Lisinopril 02/19/2020 12:00:00 AM EST ORAL active [facility] ([facility]) 3 ML Insulin Lispro 100 UNT/ML Pen Injector [Humalog] Humalo g Kwikpen 02/19/2020 12:00:00 AM EST SUBCUTANEOUS active [facility] ([facility]) Aluminum Hydroxide 80 MG/ML / Magnesium Hydroxide 80 MG/ML / Simethicone 8 MG/ML Oral Suspension [Maalox Max] Maalox Max 02/19/2020 12:00:00 AM EST ORAL active [facility] ([facility]) Ergocalciferol 39818 UNT Oral Capsule [Drisdol] Drisdol 01/19/2020 12:00:00 AM EST active [facility] ([facility]) Ergocalciferol 10811 UNT Oral Capsule [Drisdol] Drisdol 01/19/2020 12:00:00 AM EST completed [facility] ([facility]) Fluconazole 150 MG Oral Tablet Fluconazole 01/03/2020 12:00:00 AM EDT completed [facility] ([facility]) Nystatin 01/03/2020 12:00:00 AM EDT active [facility] ([facility]) Ergocalciferol 04852 UNT Oral Capsule [Drisdol] Drisdol 09/26/2019 12:00:00 AM EDT completed [facility] Magnesium Chloride 535 MG Delayed Release Oral Tablet [Mag 6 4] Mag64 08/04/2019 12:00:00 AM EDT ORAL active M EDENT ([facility]) Loratadine 10 MG Oral Capsule Loratadine 06/14/2019 12:00:00 AM EDT ORAL active [facility] ([facility]) Nystatin 691631 UNT/ML Topical Cream Nystatin 06/13/2019 12:00:00 AM EDT active [facility] ([facility]) Fluconazole 150 MG Oral Tablet Fluconazole 06/13/2019 12:00:00 AM EDT completed [facility] ([facility]) Nystatin 047314 UNT/ML / Triamcinolone Acetonide 1 MG/ ML Topical Cream Nystatin-Triamcinolone 06/13/2019 12:00:00 AM EDT completed [facility] ([facility]) Fexofenadine hydrochloride 180 MG Oral Tablet Fexofenadine H CL 06/13/2019 12:00:00 AM EDT ORAL completed [facility] ([facility]) Doxycycline Monohydrate 100 MG Oral Capsule Doxycycline [place] hydrate 06/13/2019 12:00:00 AM EDT completed [facility] ([facility]) rivaroxaban 15 MG Oral Tablet [Xarelto] Xarelto 05/04/2019 12:00:0 0 AM EST ORAL active [facility] ([facility]) dabigatran etexilate 75 MG Oral Capsule [Pradaxa] Pradaxa 05/04/2019 12:00:00 AM EST ORAL completed [facility] ([facility]) Icaps 04/13/2019 12:00:00 AM EST ORAL active [facility] ([facility]) Bisoprolol Fumarate 5 MG Oral Tablet Bisoprolol Fumarate 04/2019 12:00:00 AM EST ORAL active [facility] ([facility]) Flonase Allergy Relief Flonase Allergy Relief 03/09/2019 12:00:[address] active [facility] ([facility]) 12 HR Guaifenesin 600 MG Extended Release Oral Tablet [Mucin ex] Mucinex 03/09/2019 12:00:00 AM EST ORAL active [facility] ([facility]) 600 mg 02/27/2019 12:00:00 AM EST [...] TIMES A DAY WITH LANTUS SOLD: 02/14/2019 [facility] 180 mg 02/14/2019 12:00:00 AM EST [...] Nystatin 01/28/2019 12:00:00 AM EST completed [facility] ([facility]) Hydrocortisone 10 MG/ML Topical Cream Hydrocortisone M aximum Strength Plus 12 Moisturizers 01/28/2019 12:00:00 AM EST completed [facility] ([facility]) Insurance Providers Payer name Policy type / Coverage type Policy ID Covered republican ID Covered republican's relationship to juan Policy Juan Plan Information EMEDNY [id number] [id number] [facility] [id number] SP [id number] MEDICAID [id number] S [id number] [place](MCAID) O [id number] S [id number] MEDICAID [id number] SP [id number] MEDICARE [id number] SP [id number] MEDICARE COMPLETE [id number] SP [id number] MEDICARE COMPLETE [id number] SP [id number] [facility] [id number] SP [id number] Medicaid Medigap Part B [id number] Self [id number] Medicare Natl Govt Servic Medicare Primary [id number] Self [id number] [facility] [id number] Commercial [id number] Self [id number] Medicaid Medigap Part B [id number] Self [id number] Medicare [place] Govt Servic Medicare Primary [id number] Self [id number] MEDICARE COMPLETE [id number] SP [id number] Medicaid Medigap Part B [id number] Self [id number] Medicare [place] Govt Servic Medicare Primary [id number] Self [id number] Medicaid Medigap Part B [id number] Self [id number] Medicare [place] Govt Servic Medicare Primary [id number] Self [id number] Medicare (Part B) Medicare Primary [id number] Self [id number] BCBS Excellus U/W Medigap Part B [id number] Self [id number] Medicaid Medigap Part B [id number] Self [id number] SH U/HC-Marv Unrelated Medigap Part B [id number] Self [id number] [facility] Commercial [id number] Self [id number] BC/[place] Medigap Part B [id number] Self [id number] Excellus BC/BS Medigap Part B [id number] Self [id number] [employer] [facility] Commercial [id number] Self [id number] [employer] Commercial [id number] Self [id number] [facility] Commercial [id number] Self [id number] Medicaid Medigap Part B [id number] Self [id number] Medicare [place] Govt Servic Medicare Primary [id number] Self [id number] Medicaid Medigap Part B [id number] Self [id number] Medicare [place] Govt Servic Medicare Primary [id number] Self [id number] Medicare (Part B) Medicare Primary [id number] Self [id number] Medicaid Medigap Part B [id number] Self [id number] SH U/HC-Marv Unrelated Medigap Part B [id number] Self [id number] [facility] Commercial [id number] Self [id number] BCBS Excellus Ppo U/W Medigap Part B [id number] Self [id number] Medicaid Medigap Part B [id number] Self [id number] Medicare [place] Govt Servic Medicare Primary [id number] Self [id number] MEDICAID [id number] SP [id number] MEDICARE COMPLETE [id number] SP [id number] Medicare (Part B) Medicare Primary [id number] Self [id number] Medicaid Medigap Part B [id number] Self [id number] SH U/HC-Marv Unrelated Medigap Part B [id number] Self [id number] [facility] Commercial [id number] Self [id number] Medicaid Medigap Part B [id number] Self [id number] Medicare [place] Govt Servic Medicare Primary [id number] Self [id number] [facility] Medicare Sol Commercial [id number] 00 Self [id number] 00 Medicaid Medigap Part B [id number] Self [id number] Medicare [place] Govt Serv[place] Medicare Primary [id number] Self [id number] Medicaid Medigap Part B [id number] Self [id number] Medicare [place] Govt Servic Medicare Primary [id number] Self [id number] Medicare (Part B) Medicare Primary [id number] Self [id number] Medicaid Medigap Part B [id number] Self [id number] SH U/HC-Marv Unrelated Medigap Part B [id number] Self [id number] [facility] Commercial [id number] Self [id number] Medicaid Medigap Part B [id number] Self [id number] Medicare [place] Govt Servic Medicare Primary [id number] Self [id number] Medicaid Medigap Part B [id number] Self [id number] Medicare [place] Govt Serv[place] Medicare Primary [id number] Self [id number] Unitedhcare Medicare [place] Commercial [id number] Self [id number] Unitedare Medicare [place] Commercial [id number] Self [id number] Medicaid Medigap Part B 1 1 Self 1 1 Medicare [place] Govt Servic Medicare Primary Self Medicare (Part B) Medicare Primary Self BCBS Excellus Ppo U/W Medigap Part B [facility] Commercial Self BC/BS [place] Medigap Part B Self Excellus BC/BS Medigap Part B Self [employer] Commercial Self Evercare Commercial Self Medicaid Medigap Part B 2 1 Self 2 1 SH U/HC-Marv Unrelated Medigap Part B Self [facility] MCR Commercial Self MEDICARE COMPLETE [id number] SP [id number] Medicare Medicare Primary Self BC/BS [place] Medigap Part B Self MEDICARE [id number] SP [id number] A [id number] Results ID Date Data Source [id number] 04/01/2020 01:00:00 PM EST [facility] Name Value Range Interpretation Code Description Data Elena rce(s) Supporting Document(s) SARS coronavirus 2 RNA Not Detected [facility] [place] This lab was ordered by [facility] and reported by [facility]. ID Date Data Source [id number] 03/25/2020 12:00:00 PM EST [facility] Name Value Range Interpretation Code Description Data Elena rce(s) Supporting Document(s) SARS coronavirus 2 RNA Not Detected [facility] [place] This lab was ordered by [facility] and reported by [facility]. ID Date Data Source [id number] 03/18/2020 06:00:00 AM EST [facility] Name Value Range Interpretation Code Description Data Elena rce(s) Supporting Document(s) SARS coronavirus 2 RNA Not Detected [facility] [place] This lab was ordered by [facility] and reported by [facility]. ID Date Data Source [id number] 03/11/2020 07:30:00 AM EST [facility] Name Value Range Interpretation Code Description Data Elean rce(s) Supporting Document(s) SARS coronavirus 2 RNA Not Detected [facility] [place] This lab was ordered by [facility] and reported by [facility]. ID Date Data Source [id number] 03/04/2020 10:00:00 AM EST [facility] Name Value Range Interpretation Code Description Data Elena rce(s) Supporting Document(s) SARS coronavirus 2 RNA [facility] This lab was ordered by [facility] and reported by [facility]. ID Date Data Source [id number] 03/01/2020 12:00:00 AM EST [facility] Name Value Range Interpretation Code Description Data Elena rce(s) Supporting Document(s) SARS-CoV2 Rapid Antigen [facility] This lab was ordered by [facility] and reported by [facility]. ID Date Data Source [id number] 02/26/2020 09:30:00 AM EST [facility] Name Value Range Interpretation Code Description Data Elena rce(s) Supporting Document(s) SARS coronavirus 2 RNA [facility] This lab was ordered by [facility] and reported by [facility]. ID Date Data Source [id number] 02/21/2020 12:03:00 PM EST [facility] Name Value Range Interpretation Code Description Data Elena rce(s) Supporting Document(s) SARS coronavirus 2 RNA [facility] This lab was ordered by [facility] and reported by [facility]. ID Date Data Source [id number] 02/19/2020 02:37:00 PM EST [facility] ([facility]) Name Value Range Interpretation Code Description Data Elena rce(s) Supporting Document(s) Urea nitrogen [Mass/volume] in Serum or Plasma 43 mg/dL 7-18 [facility] ([facility]) NOTE: BUN,CREAT VERIFIED Glucose [Mass/volume] in Serum or Plasma 276 mg/dL 74-99 [facility] ([facility]) 100-125 mg/dL PRE-DIABETES/FASTING >126 mg/dL DIABETES/FASTING Potassium [Moles/volume] in Serum or Plasma 4.4 meq/L 3.5-5.1 [facility] ([facility]) Creatinine 1.7 mg/dL 0.6-1.3 [facility] ([facility]) Chloride [Moles/volume] in Serum or Plasma 101 meq/L 98-107 [facility] ([facility]) Sodium [Moles/volume] in Serum or Plasma 140 meq/L 136-145 [facility] ([facility]) Calcium [Mass/volume] in Serum or Plasma 9.3 mg/dL 8.5-10.1 [facility] ([facility]) Glomerular filtration rate/1.73 sq M pre dicted among non-blacks [Volume Rate/Area] in Serum or Plasma by Creatinine-based formula (MDRD) 29 mL/min [facility] ([facility]) Carbon dioxide, total [Moles/volume] in Serum or Plasma 31 meq/L 21 -32 [facility] ([facility]) Glomerular filtration rate/1.73 sq M pre dicted among blacks [Volume Rate/Area] in Serum or Plasma by Creatinine-based formula (MDRD) 35 mL/min [facility] ([facility]) <content>CHRONIC KIDNEY DISEASE STAGING PER NKF</content>
<content></content>
<content>STAGE I & II GFR >= 60 NORMAL TO MILDLY DECREASED</content>
<content>STAGE III GFR 30-59 MODERATELY DECREASED</content>
<content>STAGE IV GFR 15-29 SEVERELY DECREASED</content>
<content>STAGE V GFR <15 VERY LITTLE GFR LEFT</content>
<content>ESRD GFR <15 ON PHOTOGRAPHY COORDINATOR</content>
<content></content> ID Date Data Source [id number] 02/19/2020 02:37:00 PM EST [facility] ([facility]) Name Value Range Interpretation Code Description Data Elena rce(s) Supporting Document(s) Hemoglobin A1c/Hemoglobin.total in Blood 10.2 % [facility] Lab Result Notes: Pre-Diabetes 5.7 - 6.4 % Diabetes = or > 6.5% Glucose mean value [Mass/volume] in Blood Estimated fr om glycated hemoglobin 246 mg/dL 60-110 [facility] ([facility] ID Date Data Source [id number] 02/19/2020 02:37:00 PM EST [facility] Name Value Range Interpretation Code Description Data Elena rce(s) Supporting Document(s) Erythrocytes [#/volume] in Blood by Automated count 3.76 x10*6/UL 4.2 0-6.30 [facility] Leukocytes [#/volume] in Blood by Automated count 7.0 x10*3/UL 4.1-10 .9 [facility] ([facility] NOTE: CBC VERIFIED MCV 90.7 fL 80.0-97.0 [facility] Hematocrit [Volume Fraction] of Blood by Automated count 34.1 % 3 7.0-51.0 [facility] Hemoglobin [Mass/volume] in Blood 11.9 g/dL 12.0-18.0 [facility] ([facility] Erythrocyte distribution width [Ratio] by Automated count 12.9 % 11.6-13.7 [facility] ([facility]) MCHC 35.0 g/dL 31.0-38.0 [facility] MCH 31.8 pg 26.0-32.0 [facility]) Platelets [#/volume] in Blood by Automated count 176 x10*3/UL 140-440 [facility] MPV 8.9 FL 7.8-11.0 [facility] ([facility] Lymph % 18.6 % 10.0-58.5 [facility] ([facility]) Mid % 4.6 % 1.7-9.3 [facility] Neut % 76.8 % 37.0-92.0 [facility] Lymph # 1.3 x10*3/UL 0.6-4.1 [facility] ([facility]) Neut # 5.3 x10*3/UL 2.0-7.8 [facility] ([facility]) Mid # 0.4 x10*3/UL 0.1-0.6 [facility] ([facility]) ID Date Data Source [id number] 02/19/2020 02:37:00 PM EST [facility] ([facility]) Name Value Range Interpretation Code Description Data Elena rce(s) Supporting Document(s) Hemoglobin A1c/Hemoglobin.total in Blood Laboratory test result [facility] ID Date Data Source [id number] 02/16/2020 02:46:00 PM EST [facility] Name Value Range Interpretation Code Description Data Elena rce(s) Supporting Document(s) SARS coronavirus 2 RNA [facility] This lab was ordered by [facility] and reported by [facility]. ID Date Data Source [id number] 10/26/2019 01:13:00 AM EDT [facility] ([facility]) Name Value Range Interpretation Code Description Data Elena rce(s) Supporting Document(s) Glucose, Fasting 388 mg/dL 70-100 [facility] ([facility]) Creatinine For GFR 2.02 mg/dL 0.55-1.30 [facility] ([facility]) Blood Urea Nitrogen 60 mg/dL 7-18 [facility] ([facility]) Sodium Level 134 meq/L 136-145 [facility] ([facility]) Glomerular Filtration Rate 25.0 [facility] ([facility]) <content>Units are mL/min/1.73 m2</content>
<content></content>
<content>Chronic Kidney Disease Staging per NKF:</content>
<content></content>
<content>Stage I & II GFR >=60 Normal to Mildly Decreased</content>
<content>Stage III GFR 30- 59 Moderately Decreased</content>
<content>Stage IV GFR 15-29 Severely Decreased</content>
<content>Stage V GFR <15 Very Little GFR Left</content>
<content>ESRD GFR <15 on PHOTOGRAPHY COORDINATOR</content>
<content></content> Potassium Serum 4.1 meq/L 3.5-5.1 [facility] ([facility]) Chloride Level 98 meq/L 98-107 [facility] ([facility]) Anion Gap 8 meq/L 8-16 [facility] ([facility]) Carbon Dioxide Level 28 meq/L 21-32 [facility] ([facility]) Calcium Level 9.5 mg/dL 8.8-10.2 [facility] ([facility]) ID Date Data Source [id number] 10/26/2019 01:13:00 AM EDT [facility] ([facility]) Name Value Range Interpretation Code Description Data Elena rce(s) Supporting Document(s) CPK Creatine Phosphokinase 77 U/L 26-192 [facility] ([facility]) CK-MB Value Mass 1.3 ng/mL [facility] ([facility]) MB/CK Relative Index 1.69 [facility] ([facility]) <content>DIAGNOSIS CRITERIA</content>
<content>MMB ng/ml Relative Index (RI)</content>
<content>NON-AMI < or = 5 N/A</content>
<content>SORENSEN ZONE > 5 < or = 4</content>
<content>AMI > 5 > 4</content>
<content></content> Troponin I Laboratory test result [facility] ([facility]) <content>Troponin I Reference Interval f or Siemens [place] LOCI:</content>
<content></content>
<content>99th Percentile= 0.00-0.045 ng/ml</content>
<content></content>
<content>Risk Stratification:</content>
<content><= 0.10 ng/ml Decreased Risk for Adverse Clinical</content>
<content>Events.</content>
<content>0.10-1.50 ng/ml Increased Risk for Adverse Clinical</content>
<content>Events. Evaluation of additional</content>
<content>criterion and/or repeat testing in 2-6</content>
<content>hours is suggested to rule out myocardial</content>
<content>damage.</content>
<content>>= 1.50 ng/ml Indicative of Myocardial Injury.</content>
<content></content> ID Date Data Source [id number] 10/26/2019 01:13:00 AM EDT [facility] ([facility]) Name Value Range Interpretation Code Description Data Elena rce(s) Supporting Document(s) Inr 2.14 [facility] ([place] [facility] THERAPUTIC HUMAN INR VALUES INDICATIONS NORMAL RANGES PROPHYLAXIS/TREATMENT OF: VENOUS THROMBOSIS 2.0-3.0 PULMONARY EMBOLISM 2.0-3.0 PREVENTION OF SYSTEMIC EMBOLISM FROM: TISSUE HEART VALVES 2.0-3.0 ACUTE MYOCARDIAL INFARCTION 2.0-3.0 VALVULAR HEART DISEASE 2.0-3.0 ATRIAL FIBRILLATION 2.0-3.0 MECHANICAL VALVES(HIGH RISK) 2.5-3.5 RECURRENT MYOCARDIAL INFARCTION 2.5-3.5 Partial Thromboplastin Time 38.2 s 25.0-38.4 [place] [facility] ([facility]) Prothrombin Time 24.4 s 11.8-14.0 [facility] ([facility]) ID Date Data Source [id number] 10/26/2019 01:13:00 AM EDT [facility] ([facility]) Name Value Range Interpretation Code Description Data Elena rce(s) Supporting Document(s) Red Blood Count 3.66 10 4.00-5.40 [facility] ([facility]) Hemoglobin 11.5 g/dL 12.0-15.5 [facility] ([facility]) White Blood Count 11.3 10 4.0-10.0 [facility] ([facility]) Mean Corpuscular Hemoglobin 31.4 pg 27.0-33.0 [facility] ([facility]) Hematocrit 34.2 % 36.0-47.0 [facility]) Mean Corpuscular Volume 93.4 fl 80.0-96.0 [facility] ([facility]) Mean Corpuscular HGB Conc 33.6 g/dL 32.0-36.5 MEDE NT ([facility]) Platelet Count, Automated 158 10 150-450 [facility] NT ([facility]) Red Cell Distribution Width 13.4 % 11.5-14.5 [facility] ([facility]) Neutrophils % 79.7 % 36.0-66.0 [facility]) Lymph % 12.4 % 24.0-44.0 [facility]) [place] % 6.5 % 0.0-5.0 [facility]) Immature Granulocyte % 0.5 % 0-3.0 [facility] ([facility]) Baso % 0.4 % 0.0-1.0 [facility]) Eos % 0.5 % 0.0-3.0 [facility]) Nucleated Red Blood Cell % 0.0 % 0-0 [facility] ([facility]) Neutrophils # 9.0 10 1.5-8.5 [facility] ([facility]) Lymph # 1.4 10 1.5-5.0 [facility]) [place] # 0.7 10 0.0-0.8 [facility]) Eos # 0.1 10 0.0-0.5 [facility]) Baso # 0.0 10 0.0-0.2 [facility]) ID Date Data Source [id number] 08/24/2019 12:00:00 AM EDT [facility] Name Value Range Interpretation Code Description Data Elena rce(s) Supporting Document(s) 2019-nCoV N XXX Ql ESHA N2 [facility] [place] This lab was ordered by [facility] and reported by [facility]. ID Date Data Source [id number] 03/23/2019 12:15:00 PM EST [facility] Name Value Range Interpretation Code Description Data Elena rce(s) Supporting Document(s) Cobalamin (Vitamin B12) [Mass/volume] in Serum or Plasma Lab oratory test result [id number] [facility] ([facility] VITAMIN B12 NORMAL RANGE NORMAL 247 - 911 PG/ML INDETERMINATE 211 - 246 PG/ML DEFICIENT LESS THAN 211 PG/ML Parathyrin.intact [Mass/volume] in Serum or Plasma 10.1 pg/mL 18.5-88 .0 [facility] ([facility] ID Date Data Source [id number] 03/23/2019 12:14:00 PM EST [facility] ([facility] Name Value Range Interpretation Code Description Data Elena rce(s) Supporting Document(s) Calcidiol [Mass/volume] in Serum or Plasma 33.4 24.0-80.0 [facility] ([facility]) This test was performed using [employer] I P Vitamin D immunoassay kit. Values obtained with different assay methods should not be used interchangeably. ID Date Data Source [id number] 03/23/2019 12:14:00 PM EST [facility] Name Value Range Interpretation Code Description Data Elena rce(s) Supporting Document(s) Thyrotropin [Units/volume] in Serum or Plasma by Detec tion limit <= 0.05 mIU/L 2.21 uIU/mL 0.36-3.74 [facility] ([facility] ID Date Data Source [id number] 03/23/2019 12:14:00 PM EST [facility] Name Value Range Interpretation Code Description Data Elena rce(s) Supporting Document(s) Glucose [Mass/volume] in Serum or Plasma 175 mg/dL 74-99 [facility] ([facility]) 100-125 mg/dL PRE-DIABETES/FASTING >126 mg/dL DIABETES/FASTING Sodium [Moles/volume] in Serum or Plasma 136 meq/L 136-145 [facility] ([facility] Urea nitrogen [Mass/volume] in Serum or Plasma 47 mg/dL 7-18 [facility] ([facility]) Creatinine 1.7 mg/dL 0.6-1.3 [facility] Chloride [Moles/volume] in Serum or Plasma 99 meq/L 98-107 [facility] ([facility]) Potassium [Moles/volume] in Serum or Plasma 4.3 meq/L 3.5-5.1 [facility] ([facility]) Carbon dioxide, total [Moles/volume] in Serum or Plasma 31 meq/L 21 -32 [facility] ([facility]) Glomerular filtration rate/1.73 sq M pre dicted among non-blacks [Volume Rate/Area] in Serum or Plasma by Creatinine-based formula (MDRD) 29 mL/min [facility] ([facility]) Glomerular filtration rate/1.73 sq M pre dicted among blacks [Volume Rate/Area] in Serum or Plasma by Creatinine-based formula (MDRD) 35 mL/min [facility] ([facility] <content>CHRONIC KIDNEY DISEASE STAGING PER NKF</content>
<content></content>
<content>STAGE I & II GFR >= 60 NORMAL TO MILDLY DECREASED</content>
<content>STAGE III GFR 30-59 MODERATELY DECREASED</content>
<content>STAGE IV GFR 15-29 SEVERELY DECREASED</content>
<content>STAGE V GFR <15 VERY LITTLE GFR LEFT</content>
<content>ESRD GFR <15 ON PHOTOGRAPHY COORDINATOR</content>
<content></content> Calcium [Mass/volume] in Serum or Plasma 11.6 mg/dL 8.5-10.1 [facility] ([facility]) NOTE: verified ID Date Data Source [id number] 03/23/2019 12:14:00 PM EST [facility] ([facility]) Name Value Range Interpretation Code Description Data Elena rce(s) Supporting Document(s) Magnesium 2.1 mg/dL 1.8-2.4 [facility]) ID Date Data Source [id number] 03/23/2019 12:14:00 PM EST [facility] ([facility]) Name Value Range Interpretation Code Description Data Elena rce(s) Supporting Document(s) Glucose mean value [Mass/volume] in Blood Estimated fr om glycated hemoglobin 186 mg/dL 60-110 [facility] ([facility] ) Hemoglobin A1c/Hemoglobin.total in Blood 8.1 g/dL 4.8-5.6 [facility] ([facility] Lab Result Notes: Pre-Diabetes 5.7 - 6.4 % Diabetes = or > 6.5% ID Date Data Source [id number] 03/23/2019 12:14:00 PM EST [facility] ([facility]) Name Value Range Interpretation Code Description Data Elena rce(s) Supporting Document(s) Erythrocytes [#/volume] in Blood by Automated count 3.74 x10*6/UL 4.2 0-6.30 [facility] ([facility] Leukocytes [#/volume] in Blood by Automated count 8.7 x10*3/UL 4.1-10 .9 [facility] ([facility] Hemoglobin [Mass/volume] in Blood 11.5 g/dL 12.0-18.0 [facility] ([facility] Hematocrit [Volume Fraction] of Blood by Automated count 33.3 % 3 7.0-51.0 [facility] ([facility]) MCV 89.1 fL 80.0-97.0 [facility] ([facility]) MCH 30.9 pg 26.0-32.0 [facility] ([facility]) MCHC 34.7 g/dL 31.0-38.0 [facility] ([facility]) Platelets [#/volume] in Blood by Automated count 199 x10*3/UL 140-440 [facility] ([facility] Erythrocyte distribution width [Ratio] by Automated count 12.7 % 11.6-13.7 [facility] ([facility]) MPV 9.3 FL 7.8-11.0 [facility] ([facility]) Lymph % 18.1 % 10.0-58.5 [facility] ([facility]) Neut % 76.9 % 37.0-92.0 [facility] ([facility]) Mid % 5.0 % 1.7-9.3 [facility]) Neut # 6.7 x10*3/UL 2.0-7.8 [facility] ([facility]) Lymph # 1.5 x10*3/UL 0.6-4.1 [facility] ([facility]) Mid # 0.5 x10*3/UL 0.1-0.6 [facility] ([facility]) ID Date Data Source [id number] 03/23/2019 12:14:00 PM EST [facility] ([facility]) Name Value Range Interpretation Code Description Data Elena rce(s) Supporting Document(s) Parathyrin.intact [Mass/volume] in Serum or Plasma <pending> [facility] ([facility]) ID Date Data Source [id number] 02/10/2019 05:38:00 AM EST [facility] ([facility]) Name Value Range Interpretation Code Description Data Elena rce(s) Supporting Document(s) Thyrotropin [Units/volume] in Serum or Plasma by Detec tion limit <= 0.05 mIU/L 3.130 uIU/ML 0.358-3.740 [facility] ([facility] ) Thyroxine (T4) free [Mass/volume] in Serum or Plasma 1.04 ng/dL 0.76- 1.46 [facility] ([facility]) ID Date Data Source [id number] 02/10/2019 05:38:00 AM EST [facility] ([facility]) Name Value Range Interpretation Code Description Data Elena rce(s) Supporting Document(s) Creatinine For GFR 1.68 mg/dL 0.55-1.30 [facility] ([facility]) Blood Urea Nitrogen 35 mg/dL 7-18 [facility] ([facility]) Glucose, Fasting 137 mg/dL 70-100 [facility] ([facility]) Sodium Level 141 meq/L 136-145 [facility] ([facility]) Glomerular Filtration Rate 31.0 [facility] ([facility]) <content>Units are mL/min/1.73 m2</content>
<content></content>
<content>Chronic Kidney Disease Staging per NKF:</content>
<content></content>
<content>Stage I & II GFR >=60 Normal to Mildly Decreased</content>
<content>Stage III GFR 30- 59 Moderately Decreased</content>
<content>Stage IV GFR 15-29 Severely Decreased</content>
<content>Stage V GFR <15 Very Little GFR Left</content>
<content>ESRD GFR <15 on PHOTOGRAPHY COORDINATOR</content>
<content></content> Carbon Dioxide Level 29 meq/L 21-32 [facility] ([facility]) Chloride Level 103 meq/L 98-107 [facility] ([facility]) Potassium Serum 4.8 meq/L 3.5-5.1 [facility] ([facility]) Anion Gap 9 meq/L 8-16 [facility]) Calcium Level 9.9 mg/dL 8.8-10.2 [facility] ([facility]) ID Date Data Source [id number] 02/10/2019 05:38:00 AM EST [facility] ([facility]) Name Value Range Interpretation Code Description Data Elena rce(s) Supporting Document(s) Ast/Sgot 23 U/L 7-37 [facility] ([facility]) Bilirubin,Total 0.4 mg/dL 0.2-1.0 [facility] ([facility]) Alkaline Phosphatase 65 U/L 45-117 [facility] ([facility]) Alt/SGPT 19 U/L 12-78 [facility] ([facility]) Total Protein 6.8 GM/DL 6.4-8.2 [facility] ([facility]) Albumin 3.4 GM/DL 3.2-5.2 [facility] ([facility]) Bilirubin,Direct < 0.1 mg/dL 0.0-0.2 [facility] ([facility]) Albumin/Globulin Ratio 1.00 1.00-1.93 [facility] ([facility]) ID Date Data Source [id number] 02/10/2019 05:38:00 AM EST [facility] ([facility]) Name Value Range Interpretation Code Description Data Elena rce(s) Supporting Document(s) CK-MB Value Mass 1.2 ng/mL [facility] ([facility]) MB/CK Relative Index 1.33 [facility] <content>DIAGNOSIS CRITERIA</content>
<content>MMB ng/ml Relative Index (RI)</content>
<content>NON-AMI < or = 5 N/A</content>
<content>SORENSEN ZONE > 5 < or = 4</content>
<content>AMI > 5 > 4</content>
<content></content> CPK Creatine Phosphokinase 90 U/L 26-192 [facility] ([facility]) Troponin I < 0.02 ng/mL [facility] ([facility]) <content>Troponin I Reference Interval f or Siemens [place] LOCI:</content>
<content></content>
<content>99th Percentile= 0.00-0.045 ng/ml</content>
<content></content>
<content>Risk Stratification:</content>
<content><= 0.10 ng/ml Decreased Risk for Adverse Clinical</content>
<content>Events.</content>
<content>0.10-1.50 ng/ml Increased Risk for Adverse Clinical</content>
<content>Events. Evaluation of additional</content>
<content>criterion and/or repeat testing in 2-6</content>
<content>hours is suggested to rule out myocardial</content>
<content>damage.</content>
<content>>= 1.50 ng/ml Indicative of Myocardial Injury.</content>
<content></content> ID Date Data Source [id number] 02/10/2019 05:38:00 AM EST [facility] ([facility]) Name Value Range Interpretation Code Description Data Elena rce(s) Supporting Document(s) White Blood Count 9.1 10 4.0-10.0 [facility] ([facility]) Hemoglobin 10.6 g/dL 12.0-15.5 [facility] ([facility] Red Blood Count 3.51 10 4.00-5.40 [facility] ([facility]) Hematocrit 33.3 % 36.0-47.0 [facility]) Mean Corpuscular Hemoglobin 30.2 pg 27.0-33.0 [facility] ([facility]) Mean Corpuscular Volume 94.9 fl 80.0-96.0 [facility] ([facility]) Platelet Count, Automated 188 10 150-450 [facility] NT ([facility]) Mean Corpuscular HGB Conc 31.8 g/dL 32.0-36.5 [facility] NT ([facility]) Red Cell Distribution Width 13.6 % 11.5-14.5 [facility] ([facility]) Neutrophils % 75.2 % 36.0-66.0 [facility] ([facility]) Lymph % 16.0 % 24.0-44.0 [facility]) Eos % 1.5 % 0.0-3.0 [facility]) [place] % 6.7 % 0.0-5.0 [facility]) Baso % 0.2 % 0.0-1.0 [facility]) Nucleated Red Blood Cell % 0.0 % 0-0 [facility] ([facility]) Immature Granulocyte % 0.4 % 0-3.0 [facility] ([facility]) Neutrophils # 6.9 10 1.5-8.5 [facility] ([facility]) Lymph # 1.5 10 1.5-5.0 [facility]) Eos # 0.1 10 0.0-0.5 [facility]) [place] # 0.6 10 0.0-0.8 [facility] ([facility]) Baso # 0.0 10 0.0-0.2 [facility] ([facility]) Procedure Vital Signs ID Date Data Source UNK Name Value Range Interpretation Code Description Data Source(s) Body mass index (BMI) [Ratio] 46.1 kg/m2 46.1 k g/m2 [facility] ([facility]) Body weight 236.00 [lb_av] 236.00 [lb_av] [facility] T ([facility]) Body height 60 [in_i] 60 [in_i] [facility] ([facility]) 5'0" Heart rate 68 /min 68 /min [facility] ([facility]) Diastolic blood pressure 72 mm[Hg] 72 mm[Hg] [facility] ([facility]) RT Arm Systolic blood pressure 126 mm[Hg] 126 mm[Hg] [facility] ([facility]) RT Arm Oxygen saturation in Arterial blood by Pulse oximetry 94 % 94 % [facility] ([facility]) RM Air Heart rate 78 /min 78 /min [facility] ([facility]) Diastolic blood pressure 70 mm[Hg] 70 mm[Hg] [facility] ([facility]) Systolic blood pressure 128 mm[Hg] 128 mm[Hg] [facility] ([facility]) Oxygen saturation in Arterial blood by Pulse oximetry 97 % 97 % [facility] ([facility]) RM Air Heart rate 85 /min 85 /min [facility] ([facility]) Diastolic blood pressure 70 mm[Hg] 70 mm[Hg] [facility] ([facility]) Systolic blood pressure 110 mm[Hg] 110 mm[Hg] [facility] ([facility]) Respiratory rate 18 /min 18 /min [facility] ( [facility]) Body temperature 98.3 [degF] 98.3 [degF] [facility] ([facility]) Oxygen saturation in Arterial blood by Pulse oximetry 94 % 94 % [facility] ([facility]) RM Air Heart rate 62 /min 62 /min [facility] ([facility]) Diastolic blood pressure 70 mm[Hg] 70 mm[Hg] [facility] ([facility]) Systolic blood pressure 128 mm[Hg] 128 mm[Hg] [facility] ([facility])
[2020-04-06] MEDS: IPRATROPIUM 0.5MG/ALBUTEROL 2.5MG INH SOL UD 3ML (DUONEB) NEB SCH (20:00)
[2020-04-06] MEDS: ADVAIR HFA 115/21MCG INHALER INH SCH (20:00)
[2020-04-06] MEDS ORDERED: traMADol 50 MG TAB PO PRN (20:15)
[2020-04-06] MEDS ORDERED: ONDANSETRON 4 MG ORAL DISINTEGRATING TAB PO PRN (20:15)
[2020-04-06] MEDS ORDERED: ALBUTEROL 90 MCG/ACT 8GM HFA INHALER INH PRN (20:15)
[2020-04-06] MEDS ORDERED: ACETAMINOPHEN TAB 650MG DOSE (2X325MG) PO PRN (20:15)
[2020-04-06] MEDS ORDERED: SIMETHICONE 80MG CHEW TAB PO PRN (20:15)
[2020-04-06] MEDS ORDERED: IPRATROPIUM 0.5MG/ALBUTEROL 2.5MG INH SOL UD 3ML (DUONEB) NEB PRN (20:15)
[2020-04-06] MEDS ORDERED: guaiFENesin SYRUP 200 MG/10 ML UDC PO PRN (20:15)
[2020-04-06] MEDS ORDERED: FUROSEMIDE 40MG/4ML VIAL (J1940) IV ONE (20:30)
[2020-04-06 20:40] LABS: NT-PRO BNP 5389 PG/ML (<450)
--- NOTE | 2020-04-06 20:54 | REPVR ---
PROCEDURE INFORMATION: Exam: CT Chest Without Contrast; Diagnostic Exam date and time: 04/06/2020 7:38 PM Age: 85 years old Clinical indication: Abnormal findings; Abnormal radiologic exam of lung or chest; Additional info: F/u opacity vs lung mass TECHNIQUE: Imaging protocol: Diagnostic computed tomography of the chest without contrast. 3D rendering (Not supervised by radiologist): MIP and/or 3D reconstructed images were created by the technologist. Radiation optimization: All CT scans at this facility use at least one of these dose optimization techniques: automated exposure control; mA and/or kV adjustment per patient size (includes targeted exams where dose is matched to clinical indication); or iterative reconstruction. COMPARISON: CT Chest without contrast 02/10/2019 5:35 AM FINDINGS: Lungs: Patchy areas of ground-glass density and consolidation noted diffusely throughout both lungs. Diffuse thickening interlobular septa. Pleural spaces: Unremarkable. No pneumothorax. No pleural effusion. Heart: There is cardiomegaly. Mediastinal space: There is a small sliding hiatal hernia. Aorta: Atherosclerotic change of the thoracic aorta with no aneurysm. Lymph nodes: Unremarkable. No enlarged lymph nodes. Liver: 4.2 cm cyst in the right lobe of the liver. Cyst with a rim calcifications present in the right lobe anteriorly measuring 5 cm. Kidneys and ureters: 1.1 cm low-density lesion mid left kidney (0.8). No hydronephrosis in the visualized portion of either kidney.. Bones/joints: Fracture of the left lateral 4th rib of uncertain age. 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 Healed fractures of the right anterior 4th, 5th and 6th rib The bilateral cervical ribs. Soft tissues: Benign coarse calcifications in the left breast. IMPRESSION: 1. Diffuse infiltrates in both lungs in a pattern suggestive of COVID pneumonia. There is underlying interstitial lung disease. 2. Cardiomegaly. 3. Liver cysts. 4. Stable low-density lesion mid left kidney likely a cyst. No follow-up recommended based on this finding. 5. Small sliding hiatal hernia. COMMENTS: 1. Consistent with the [employer]'s Incidental Findings Committee white paper (J Am Sunny Radiol 2015): In patients aged 35 years and older with an incidental thyroid nodule equal to or greater than 1.[address], MRI or extrathyroidal US, further evaluation with dedicated thyroid US is recommended for patients with normal life expectancy and without comorbidities. For smaller nodules without suspicious features, no further evaluation or follow up is recommended. 2. Consistent with the [employer]'s Incidental Findings Committee white paper (J Am Sunny Radiol 2018): Any incidental renal lesion less than 1 cm or classified as too small to characterize, or any incidental cystic renal lesion characterized as simple-appearing, is likely benign. No follow-up imaging is recommended for these lesions per consensus recommendations based on imaging criteria. Electronically signed by: Betty Fu On 04/06/2020 20:53:45 PM
[2020-04-06] MEDS ORDERED: HumaLOG INSULIN (NovoLOG) PER UNIT SC SCH (21:00)
[2020-04-06] MEDS ORDERED: traMADol 50 MG TAB PO SCH (21:00)
[2020-04-06] MEDS ORDERED: ATORVASTATIN 20 MG TAB PO SCH (21:00)
[2020-04-06] MEDS ORDERED: bisoproloL fumarate 5 MG TAB PO SCH (21:00)
--- NOTE | 2020-04-06 21:42 | HPEPDOC ---
[facility] Medical History & Physical Date of Admission Apr 06, 2020 Date of Service: Apr 06, 2020 Attending Physician: BETH MCGILL MD History and Physical CHIEF COMPLAINT: Altered Mental Status HISTORY OF PRESENT ILLNESS: A 85-year-old female with past medical history significant for heart failure with preserved ejection fraction, Obstructive sleep apnea on CPAP, hypertension, morbid obesity and osteoarthritis, and chronic kidney disease who presented to [facility] emergency department after being found to have an altered mental status at the [facility]. Per staff, the patient is not acting herself. Patient currently has no complaints. She is intermittently confused, although does answer questions appropriately. Patient denies any chest pain, palpitations or feelings of shortness of breath. Denies any fevers or chills. Patient states that she would like to go back to [facility] and does not want to be in the hospital. On presentation to the emergency department the patient was vitally stable. She was requiring 4 L nasal cannula. Per [facility] staff, the patient was altered. On evaluation, the patient did answer questions appropriately. She was int ermittently confused, however, unclear what her baseline is. Chest x-ray imaging obtained in the ER demonstrated a possible left perihilar mass versus infiltrate. This is follow-up with a chest CT which demonstrated diffuse bilateral groundglass opacities and consolidation. Patient was febrile on pr esentation. Laboratory studies demonstrated a mild leukocytosis and anemia. Her BNP was elevated at 5389. Creatinine elevated at 1.98 with a baseline of 1.87. Hospital service was consultative and the patient was admitted for further evaluation management PAST MEDICAL HISTORY: 1. HFpEF 2. Hypertension 3. Obstructive sleep apnea on CPAP 4. Atrial fibrillation on Xarelto 5. Diabetes mellitus type 2 6. Morbid obesity. 7. Osteoarthritis 8. GERD. 9. Gout PAST SURGICAL HISTORY: 1. Appendectomy 2. Ovarian cyst removal. SOCIAL HISTORY: Patient currently lives at the [facility]. She is a DNR/DNI CODE STATUS. She has a MOLST form stating not to bring to Hospital. He denies any history of smoking alcohol use or IV/illicit drug use. She denies any recent sick contacts. FAMILY HISTORY: Family history was reviewed. No pertinent family medical history ALLERGIES: Please see below. REVIEW OF SYSTEMS: CONSTITUTIONAL: Denies fevers, chills. Denies unintentional weight loss or weight gain. Denies night sweats. HEENT: Denies change in vision. Denies dysphagia or odynophagia. CARDIOVASCULAR:. Denies chest pain, pressure or palpitations. RESPIRATORY: Admits to occasional shortness of breath. Denies any cough, sputum production. denies hemoptysis. GASTROINTESTINAL: Denies abdominal pain. Denies nausea, vomiting, diarrhea or constipation. GENITOURINARY: Denies Dysuria, increased frequency, urgency. SKIN:. Denies any rashes or lesions. MUSCULOSKELETAL: Denies muscle weakness. Admits to chronic back pain NEUROLOGICAL:. Denies any changes in gait or speech from baseline. PSYCHIATRIC:. Denies depression or anxiety. ENDOCRINE: Admits to history diabetes. HEMATOLOGIC/LYMPHATIC: Denies easy bruising, bleeding denies history of DVT or pulmonary embolism. HOME MEDICATIONS: Please see below. PHYSICAL EXAMINATION: VITAL SIGNS: Temperature 100.9, pulse, 95, respiratory rate 20, blood pressure 132/56, pulse oximetry, 97% on 4 L nasal cannula GENERAL APPEARANCE:. Patient is awake, alert. She is oriented to self and place but not time. She is lying in stretcher comfortably. She does not appear in any acute distress. HEENT:. Atraumatic, normocephalic. Eyes are nonicteric. Trachea is midline. Mucous membranes are pink and moist. CARDIOVASCULAR:. Normal S1, S2, slightly tachycardic rate with an irregularly irregular rhythm. No clicks rubs or murmurs auscultated. There is no jugular venous distention LUNGS:. Patient has scattered rhonchi and crackles bilaterally. Decreased breath sounds throughout, more so in the bases. There is good respiratory effort. There is no accessory muscle use ABDOMEN: Soft, nondistended, morbidly obese. There is a large ventral hernia. There is normoactive bowel sounds EXTREMITIES: There is 2+ pitting edema in the bilateral lower extremities. Full equal pulses in bilateral upper and lower extremities. NEUROLOGICAL: No Focal neurological deficits. PSYCHIATRIC: Mood and affect appear appropriate for situation LABORATORY DATA: See below. IMAGING: INDICATION: Altered Mental Status. COMPARISON: Comparison chest x-ray June 29, 2018. TECHNIQUE: Portable upright AP chest radiograph. FINDINGS: There is a large dense opacity in left perihilar region which may be mass or infiltrate. There increased markings right upper lobe and right base appear to be infiltrate. Heart is enlarged unchanged. Pleural angles are sharp. Vascular calcification is noted.. IMPRESSION: Large opacity in the left perihilar region infiltrate versus mass. Infiltrates are noted in the right upper lobe and in the bases.. <Electronically signed by Roverto Clarke 04/06/20 1836 DD: Lobo Roberto MD 04/06/20 1822 PROCEDURE INFORMATION: Exam: CT Head Without Contrast Exam date and time: 04/06/2020 6:22 PM Age: 85 years old Clinical indication: Altered mental status/memory loss; Additional info: AMS TECHNIQUE: Imaging protocol: Computed tomography of the head without contrast. Radiation optimization: All CT scans at this facility use at least one of these dose optimization techniques: automated exposure control; mA and/or kV adjustment per patient size (includes targeted exams where dose is matched to clinical indication); or iterative reconstruction. COMPARISON: CT Head without contrast 10/26/2019 12:10 AM FINDINGS: Brain: The brain demonstrates diffuse volume loss. There is white matter hypodensity most consistent with chronic small vessel ischemic change. No visible evolving territorial infarct. No hemorrhage. Patchy hypodensities again demonstrated in the basal ganglia and thalami in keeping with chronic ischemia. Cerebral ventricles: The ventricles are mildly enlarged in keeping with volume loss. Bones/joints: Degenerative changes of the temporomandibular joints. No acute fracture. Paranasal sinuses: Trace maxillary sinus mucosal thickening. Dependent mucosal disease versus fluid in the left sphenoid sinus. Mastoid air cells: Visualized mastoid air cells are well aerated. Soft tissues: Unremarkable. IMPRESSION: No acute intracranial abnormality seen. Electronically signed by: Michelle Dang On 04/06/2020 18:43:08 PM PROCEDURE INFORMATION: Exam: CT Chest Without Contrast; Diagnostic Exam date and time: 04/06/2020 7:38 PM Age: 85 years old Clinical indication: Abnormal findings; Abnormal radiologic exam of lung or chest; Additional info: F/u opacity vs lung mass TECHNIQUE: Imaging protocol: Diagnostic computed tomography of the chest without contrast. 3D rendering (Not supervised by radiologist): MIP and/or 3D reconstructed images were created by the technologist. Radiation optimization: All CT scans at this facility use at least one of these dose optimization techniques: automated exposure control; mA and/or kV adjustment per patient size (includes targeted exams where dose is matched to clinical indication); or iterative reconstruction. COMPARISON: CT Chest without contrast 02/10/2019 5:35 AM FINDINGS: Lungs: Patchy areas of ground-glass density and consolidation noted diffusely throughout both lungs. Diffuse thickening interlobular septa. Pleural spaces: Unremarkable. No pneumothorax. No pleural effusion. Heart: There is cardiomegaly. Mediastinal space: There is a small sliding hiatal hernia. Aorta: Atherosclerotic change of the thoracic aorta with no aneurysm. Lymph nodes: Unremarkable. No enlarged lymph nodes. Liver: 4.2 cm cyst in the right lobe of the liver. Cyst with a rim calcifications present in the right lobe anteriorly measuring 5 cm. Kidneys and ureters: 1.1 cm low-density lesion mid left kidney (0.8). No hydronephrosis in the visualized portion of either kidney.. Bones/joints: Fracture of the left lateral 4th rib of uncertain age. 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 Healed fractures of the right anterior 4th, 5th and 6th rib The bilateral cervical ribs. Soft tissues: Benign coarse calcifications in the left breast. IMPRESSION: 1. Diffuse infiltrates in both lungs in a pattern suggestive of COVID pneumonia. There is underlying interstitial lung disease. 2. Cardiomegaly. 3. Liver cysts. 4. Stable low-density lesion mid left kidney likely a cyst. No follow-up recommended based on this finding. 5. Small sliding hiatal hernia. COMMENTS: 1. Consistent with the [employer]'s Incidental Findings Committee white paper (J Am Sunny Radiol 2015): In patients aged 35 years and older with an incidental thyroid nodule equal to or greater than 1.[address], MRI or extrathyroidal US, further evaluation with dedicated thyroid US is recommended for patients with normal life expectancy and without comorbidities. For smaller nodules without suspicious features, no further evaluation or follow up is recommended. 2. Consistent with the [place]'s Incidental Findings Committee white paper (J Am Sunny Radiol 2018): Any incidental renal lesion less than 1 cm or classified as too small to characterize, or any incidental cystic renal lesion characterized as simple-appearing, is likely benign. No follow-up imaging is recommended for these lesions per consensus recommendations based on imaging criteria. Electronically signed by: Betty Fu On 04/06/2020 20:53:45 PM MICROBIOLOGY: Please see below. ASSESSMENT: Patient is a 85-year-old female, past medical history significant for heart failure with preserved ejection fraction, chronic kidney disease, hypertension and osteoporosis presented to the [facility] emergency department after [facility] reported that she was altered. There is chronic patient was found to be febrile with a left perihilar hilar infiltrate on chest x-ray and CT imaging demonstrated bilateral groundglass densities. PLAN: 1. Sepsis likely secondary to respiratory infection -Patient presenting with fever, leukocytosis, altered mental status and CT imaging suggestive of bilateral ground glass opacities and a left perihilar infiltrate. -Patient is currently Covid negative. Given Levaquin in the ED. Will continue Levaquin inpatient. Pro-calcitonin currently pending -Diffuse ground glass opacities are present either viral pneumonia versus pulmonary edema. She does have areas of intra-lobular septal thickening, which could represent fibrotic regions. -Blood cultures pending -Plan to continue Levaquin. Pro-calcitonin ordered. The patient shows clinical improvement, then she can likely be transitioned to oral Levaquin and discharged back to [facility] 2. Acute decompensated congestive heart failure -Patient has a history of heart failure with preserved ejection fraction. On physical exam today she does appear slightly volume overloaded. BNP is elevated, which was supported this. -Will give 40 mg IV Lasix now. Will continue to monitor urine output. Daily weights and I's and O's -Patient is on furosemide and spironolactone at home will hold these for now. Likely can resume tomorrow. 3. Atrial fibrillation -Patient has a history of fibrillation. She's currently rate controlled. She takes digoxin and Zebeta for her rate control. Will continue -We'll continue Xarelto for anticoagulation 4. Chronic kidney disease stage IV -Patient has chronic kidney disease stage IV. Average creatinine of 1.87, cu rrently 1.98. -Will continue to monitor 5. . Diabetes mellitus type 2 -Patient takes long-acting at home will reduce dose by 50% while inpatient -Continue sliding scale coverage before meals and at bedtime. 6. Obstructive sleep apnea -Patient has EDVIN, which is complicated by her morbid obesity. Anticipate she will have desaturations at night and likely require more oxygen 7. Questionable asthma -Patient is on Breo ellipta outpatient. I do not see any formal diagnosis of asthma. Will continue while hospitalized. Will give DuoNeb's as needed. -There is no wheezing on exam 8. GERD -Continue Prilosec 9. Chronic pain -Continue patient's tramadol. 10. DVT prophylaxis -Chronically anticoagulated with Xarelto Disposition: Patient can likely be discharged back to [facility] pending clinical improvement. Reportedly, the patient has a MOLST form which states do not send to the hospital Vital Signs Vital Signs Date Time Temp Pulse Resp B/P (MAP) Pulse Ox O2 Delivery O2 Flow Rate FiO2 04/06/20 20:00 91 19 146/70 (95) 96 Nasal Cannula 4.0 04/06/20 17:20 100.9 Laboratory Data Labs 24H Laboratory Tests 2 04/06/20 17:13: Immature Granulocyte % (Auto) 0.8, Neutrophils (%) (Auto) 82.7H, Lymphocytes (%) (Auto) 7.3L, Monocytes (%) (Auto) 8.7H, Eosinophils (%) (Auto) 0.3, Basophils (%) (Auto) 0.2, Neutrophils # (Auto) 9.7H, Lymphocytes # (Auto) 0.9L, Monocytes # (Auto) 1.0H, Eosinophils # (Auto) 0.0, Basophils # (Auto) 0.0, Nucleated Red Blood Cells % (auto) 0.0, Anion Gap 11, Glomerular Filtration Rate 25.6L, Osmolality 299, Lactic Acid Level 2.0, Calcium Level 9.3, Total Bilirubin 0.6, Direct Bilirubin 0.2, Aspartate Amino Transf (AST/SGOT) 12, Alanine Aminotransferase (ALT/SGPT) 17, Alkaline Phosphatase 109, Ammonia 18, Total Creatine Kinase 43, Creatine Kinase MB < 1.0, Creatine Kinase MB Relative Index 2.33, Troponin I < 0.02, RO-Iax-W-Type Natriuretic Peptide 5389H, Total Protein 6.8, Albumin 3.1L, Albumin/Globulin Ratio 0.8L, Thyroid Stimulating Hormone ( TSH) 2.100, Coronavirus (COVID-19)(PCR) NEGATIVE, Influenza Type A (RT-PCR) NEGATIVE, Influenza Type B (RT-PCR) NEGATIVE, Respiratory Syncytial Virus (PCR) NEGATIVE 04/06/20 17:29: Bedside Glucose (Misc Panel) 186H 04/06/20 17:38: Urine Color YELLOW, Urine Appearance CLEAR, Urine pH 5.0, Urine Specific [place] 1.008, Urine Protein NEGATIVE, Urine Glucose (UA) NEGATIVE, Urine Ketones NEGATIVE, Urine Blood NEGATIVE, Urine Nitrite NEGATIVE, Urine Bilirubin N EGATIVE, Urine Urobilinogen 0.2, Urine Leukocyte Esterase NEGATIVE, Urine WBC (Auto) 0, Urine RBC (Auto) 1, Urine Hyaline Casts (Auto) 1, Urine Bacteria (Auto) NEGATIVE, Urine Squamous Epithelial Cells 0, Urine Sperm (Auto) CBC/BMP Laboratory Tests 04/06/20 17:13 Microbiology Microbiology 04/06/20 Blood Culture, Received Pending 04/06/20 Blood Culture, Received Pending Home Medications Scheduled Acetaminophen (Tylenol Arthritis) 650 Mg Tablet.er, 1,300 MG PO QHS Atorvastatin Calcium (Lipitor) 20 Mg Tablet, 20 MG PO QHS Bisoprolol Fumarate (Bisoprolol Fumarate) 5 Mg Tablet, 5 MG PO QHS Calcium Carbonate/Vitamin D3 (Calcium 500-Vit D3 200 Caplet) 1 Each Tablet, 1 TAB PO DAILY Cyclosporine (Restasis) 0.05% Droperette, 1 DROP OU BID Digoxin (Digoxin) 125 Mcg Tablet, 125 MCG PO Q2D Docusate Sodium (Colace) 100 Mg Capsule, 100 MG PO DAILY Doxercalciferol (Doxercalciferol) 1 Mcg Capsule, 3 MCG PO QPM Ergocalciferol (Vitamin D2) (Drisdol) 1,250 Mcg Capsule, 1,250 MCG PO Q2WK 4th and 18th Febuxostat (Uloric) 40 Mg Tablet, 40 MG PO QPM AT 1600 Ferrous Gluconate (Ferrous Gluconate) 324 Mg Tablet, 324 MG PO 3XW ON WEDNESDAY, WEDNESDAY, AND WEDNESDAY AT 0600; WITH ORANGE JUICE ON AN EMPTY STOMACH Fluticasone/Vilanterol (Breo Ellipta 100-25 Mcg INH) 1 Each Blst.w.dev, 1 PUFF INH QPM AT 1600 Gabapentin (Gabapentin) 100 Mg Capsule, 200 MG PO QHS Insulin Glargine (Lantus) 100 Unit/1 Ml Vial, 44 UNITS SC BID Insulin Lispro (Humalog Kwikpen U-100) 100 Unit/1 Ml Insuln.pen, 6 UNITS SC BID 1100,1630 Loratadine (Loratadine) 10 Mg Tablet, 10 MG PO DAILY Magnesium Chloride (Mag Delay) 64 Mg Tablet.dr, 128 MG PO DAILY Omeprazole (Omeprazole) 20 Mg Capsule.dr, 20 MG PO BID Polyvinyl Alcohol (Artificial Tears) 15 Ml Drops, 1 DROP OU BID Rivaroxaban (Xarelto) 15 Mg Tablet, 15 MG PO QPM Spironolactone (Aldactone) 25 Mg Tablet, 25 MG PO DAILY Torsemide (Torsemide) 10 Mg Tablet, 30 MG PO BID 0900,1400 Tramadol HCl (Ultram) 50 Mg Tablet, 50 MG PO QHS Vit C/E/Zn/Coppr/Lutein/Zeaxan (Preservision Areds 2 Softgel) 1 Each Capsule, 1 EACH PO BID Scheduled PRN Acetaminophen (Tylenol) 325 Mg Tablet, 650 MG PO Q6H PRN for ARTHRITIS PAIN Albuterol Sulfate (Proair Hfa) 8.5 Gm Hfa.aer.ad, 2 PUFF INH Q4H PRN for COUGH Calcium Carbonate (Calcium Antacid) 400 Mg Tab.chew, 800 MG PO TID PRN for GAS PAIN Capsaicin (Capsaicin) 0.025% Cream..g., 1 APLCT TOP BID PRN for FOOT PAIN Mag Hydrox/Aluminum Hyd/Simeth (Maalox Maximum Strength Susp) 355 Ml Oral.susp, 30 ML PO Q6H PRN for INDIGESTION Magnesium Hydroxide (Milk of Magnesia) 400 Mg/5 Ml Oral.susp, 10 ML PO DAILY PRN for CONSTIPATION Menthol (Biofreeze) 118 Ml Gel..ml., 1 APLCT TOP PRN PRN for PAINFUL JOINTS Nystatin (Nystatin Powder) 15 Gm Powder, 1 APLCT TOP BID PRN for EXCORIATION APPLY UNDER BREASTS AND SKIN FOLDS Ondansetron (Ondansetron Odt) 4 Mg Tab.rapdis, 4 MG PO Q6H PRN for NAUSEA OR VOMITING Simethicone (Simethicone) 80 Mg Tab.chew, 80 MG PO TID PRN for GAS PAIN Tramadol HCl (Ultram) 50 Mg Tablet, 50 MG PO Q6H PRN for PAIN guaiFENesin (Diabetic Tussin Ex) 100 Mg/5 Ml Liquid, 10 ML PO Q6H PRN for COUGH Allergies Coded Allergies: NSAIDS (Non-Steroidal Anti-Inflamma (Unverified Allergy, Unknown, 10/26/19) Penicillins (Verified Allergy, Unknown, 10/26/19) chlorpheniramine (Verified Allergy, Unknown, 10/26/19) codeine (Verified Allergy, Unknown, 10/26/19) cortisone (Unverified Allergy, Unknown, 10/26/19) erythromycin base (Verified Allergy, Unknown, 10/26/19) A-FIB/CHADSVASC A-FIB History Current/History of A-Fib/PAF?: Yes Current PO Anticoag Therapy: Yes GME ATTESTATION GME ATTESTATION My faculty preceptor for this patient encounter was physically present during the encounter and was fully available. All aspects of the patient interview, examination, medical decision making process, and medical care plan development were reviewed and approved by the faculty preceptor. The faculty preceptor is aware and concurs with the plan as stated in the body of this note and will attest to such by his/her cosignature. ATTENDING NOTE Time of service 825pm is an 85 yr old former [employer] w a hx of A fib, pulm HTN/ HFpEF, EDVIN (bipap 21/12), obesity, smoking induced chronic bronchitis, HTN, DLP, IDDM, hiatal hernia who was sent from her NH after having a fall while she was on the toilet; thereafter she was not acting like herself. Vital Signs Date Time Temp Pulse Resp B/P (MAP) Pulse Ox O2 Delivery O2 Flow Rate FiO2 04/06/20 17:03 103 20 132/56 (81) 96 04/06/20 17:20 100.9 Nasal Cannula 4.0 PE: confused, short of breath, using accessory muscles, breath sounds diminished at lung bases #Fall / syncope ? - telemetry / f/u orthostats #Encephalopathy - neurochecks/ f/u VBG to r/o hypercapnea #Multifactorial dyspnea- continuous pulse ox / supplemental O2 / treat for PNA & COPD #Sepsis likely 2/2 URI - treat for PNA /acetaminophen # COVID PNA vs atypical PNA - treat for PNA /f/u repeat COVID test, COVID labs, sputum cx, legionella, mycoplasma, MRSA and strep pneumonia #Interstial Lung Disease (per CT) vs Acute COPD ? (per consultation note done several years ago the patient has smoking induced chronic bronchitis) - will order levalbuterol (which is less likely to cause rapid afib than albuterol) PRN and albuterol with ipratropium scheduled #EDVIN - biPAP 16/10 Rest per H&P MAGDA ARBOLEDA DO Apr 06, 2020 21:42 BETH MCGILL MD Apr 06, 2020 22:34
[2020-04-06] MEDS ORDERED: DEXTROSE 50% 50 ML SYRINGE IV PRN (21:45)
[2020-04-06] MEDS ORDERED: GLUCOSE 4GM CHEW TABLET PO PRN (21:45)
[2020-04-06] MEDS ORDERED: GLUCAGON INJ 1MG VIAL SC PRN (21:45)
[2020-04-06] MEDS ORDERED: LEVALBUTEROL HFA 45MCG/ACT 15 GM INHALER INH PRN (22:15)
[2020-04-06 22:54] LABS: VENOUS BASE EXCESS 4.1 (-2.0-2.0); VENOUS HCO3 28.3 MEQ/L (23.0-27.0); VENOUS O2 SATURATION 98.5 % (60.0-80.0); VENOUS PARTIAL PRESSURE CO2 41.1 mmHg (38.0-50.0); VENOUS PARTIAL PRESSURE O2 146.8 mmHg (30.0-50.0); VENOUS PH 7.456 UNITS (7.330-7.430); VENOUS STANDARD HCO3 28.2 MEQ/L; VENOUS TOTAL CO2 29.6 MEQ/L (24.0-28.0)
[2020-04-06 23:24] LABS: INR 1.49; PROTHROMBIN TIME 18.3 SECONDS (12.5-14.3)
[2020-04-06 23:25] LABS: PARTIAL THROMBOPLASTIN TIME 49.4 SECONDS (24.2-38.5)
[2020-04-06 23:27] LABS: D-DIMER QUANT 1152.29 ng/ml (<500)
[2020-04-06 23:34] LABS: C REACTIVE PROTEIN QUANTITATIV 15.8 MG/DL (0.00-0.30)
[2020-04-07 00:10] VITALS: BP 148/66
[2020-04-07 00:54] VITALS: BP 148/66
[2020-04-07] MEDS: OMEPRAZOLE 20 MG CAP PO SCH ×2 (00:54→08:28)
[2020-04-07] MEDS: LEVEMIR (INSULIN DETEMIR) 1 UNITS/0.01ML SC SCH ×2 (00:56→08:30)
[2020-04-07] MEDS: POLYVINYL ALCOHOL OPHTH SOLN 15 ML(LIQUITEARS) OU SCH ×3 (00:56→22:00)
[2020-04-07 02:01] LABS: RSV AMPLIFICATION NEGATIVE (NEGATIVE)
[2020-04-07] MEDS: IPRATROPIUM 0.5MG/ALBUTEROL 2.5MG INH SOL UD 3ML (DUONEB) NEB SCH ×2 (02:43→08:00)
[2020-04-07 04:00] VITALS: BP 152/65
[2020-04-07] MEDS ORDERED: NYSTATIN 100,000 UNITS/GM TOPICAL PWD 15 GM TOP PRN (06:00)
[2020-04-07 06:31] LABS: HEMATOCRIT 30.3 % (36.0-47.0); HEMOGLOBIN 9.5 g/dl (12.0-15.5); MEAN CORPUSCULAR HEMOGLOBIN 30.4 pg (27.0-33.0); MEAN CORPUSCULAR HGB CONC 31.4 g/dl (32.0-36.5); MEAN CORPUSCULAR VOLUME 97.1 fl (80.0-96.0); PLATELET COUNT, AUTOMATED 207 10^3/uL (150-450); RED BLOOD COUNT 3.12 10^6/uL (4.00-5.40); WHITE BLOOD COUNT 12.4 10^3/uL (4.0-10.0)
[2020-04-07 06:48] LABS: CALCIUM LEVEL 9.4 MG/DL (8.8-10.2); CREATININE FOR GFR 1.95 MG/DL (0.55-1.30); POTASSIUM SERUM 4.6 MEQ/L (3.5-5.1)
[2020-04-07] MEDS ORDERED: HumaLOG INSULIN (NovoLOG) PER UNIT SC SCH (07:30)
[2020-04-07 08:00] VITALS: BP 117/55
[2020-04-07] MEDS: ADVAIR HFA 115/21MCG INHALER INH SCH ×2 (08:19→19:55)
--- NOTE | 2020-04-07 08:53 | ECGEPIP ---
[facility] - ED Test Date: 2020-04-06 Pat Name: MARICRUZ FRAGOSO Department: Room: [place] [address] Gender: Female Inspector Firearms: SADA : [id number] Requested By: JOCELINE OQUENOD Order Number: [id number] Reading MD: Olinda Agosto Measurements Intervals [place] Rate: 98 P: MN: 0 QRS: -6 QRSD: 77 T: 15 QT: 306 QTc: 391 Interpretive Statements ATRIAL FIBRILLATION ABNORMAL RHYTHM ECG NSTTW abnormalities similar to prior EKG10/26/19 Electronically Signed on 04-07-2020 8:53:07 EST by Olinda Agosto
[2020-04-07] MEDS ORDERED: DOCUSATE SODIUM 100MG CAPSULE PO SCH (09:00)
[2020-04-07] MEDS ORDERED: TORSEMIDE 10 MG TABLET PO SCH (09:00)
[2020-04-07] MEDS ORDERED: SPIRONOLACTONE 25 MG TAB PO SCH (09:00)
[2020-04-07] MEDS ORDERED: ONDANSETRON 4MG/2ML VIAL IV PRN (09:45)
[2020-04-07] MEDS ORDERED: PROMETHAZINE INJ 25 MG/ML VIAL (J2550) IV PRN (09:45)
[2020-04-07] MEDS ORDERED: SCOPOLAMINE 1MG TRANSDERMAL PATCH TOP PRN (10:30)
[2020-04-07 10:56] VITALS: BP 112/59
[2020-04-07] MEDS ORDERED: IPRATROPIUM 0.5MG/ALBUTEROL 2.5MG INH SOL UD 3ML (DUONEB) NEB PRN (11:15)
[2020-04-07] MEDS: LORazepam 2 MG/ML VIAL IV PRN ×5 (11:21→19:02)
--- NOTE | 2020-04-07 12:23 | IPNPDOC ---
Subjective Date Seen The patient was seen on 04/07/20. 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 When she arrived, she had a MOLST which stated do not send to hospital. It had also stated PERCHER and limited medical interventions. I reached out to her health care proxy Sister Rosi Benitez for clarifications. Sister Rosi Benitez reported that the last 2 times they had seen her, she was confused and did not recognize her. She remembers the document on file does say DNR/DNI. We spoke about comfort measures only and limited medical interventions. She wanted comfort measures only with the understanding that if we withdrawal life prolonging treatment, she will pass away soon. She understood that she may pass away soon and chose PERCHER. Since there was a suspicion of COVID infection, they will not be able to send someone over to see her. If we need to contact Sister Rosi Benitez, we can also use [phone]. Otherwise, when I saw SsiSmith, she was confused. She was only orientated to self and very agitated. She did not want to be in the hospital. 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 She tested for COVID negative twice, but has imaging suggestive of infection. I spoke with her HCP Sister Briana mario Jacquiemiriam about clarification of the MOLST. She understands that PERCHER means that we will not pursue life prolonging treatments and she may pass away soon from her illness. Sister Rosi Benitez understand and agrees and a new MOLST was filled out. 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 Sepsis 2/2 pneumonia 2. Suspected COVID infection 3. Acute decompensated congestive heart failure 4. Atrial fibrillation 5. Chronic kidney disease stage IV 6. Diabetes mellitus type 2 7. Obstructive sleep apnea 8. GERD 9. Chronic pain Disposition: HCP Sister Rosi Benitez has made Sister Margoth Mcelroy PERCHER. Sister Margoth Mcelroy will be made comfortable VS, I&O, 24H, Fishbone Vital Signs/I&O Vital Signs Date Time Temp Pulse Resp B/P (MAP) Pulse Ox O2 Delivery O2 Flow Rate FiO2 04/07/20 08:00 5.0 04/07/20 08:00 98.8 86 22 117/55 (75) 93 Nasal Cannula I&O- Last 24 Hours up to 6 AM 04/07/20 06:00 Intake Total 750 ml Output Total 850 ml Balance -100 ml Laboratory Data 24H LABS Laboratory Tests 2 04/06/20 17:13: Immature Granulocyte % (Auto) 0.8, Neutrophils (%) (Auto) 82.7H, Lymphocytes (%) (Auto) 7.3L, Monocytes (%) (Auto) 8.7H, Eosinophils (%) (Auto) 0.3, Basophils (%) (Auto) 0.2, Neutrophils # (Auto) 9.7H, Lymphocytes # (Auto) 0.9L, Monocytes # (Auto) 1.0H, Eosinophils # (Auto) 0.0, Basophils # (Auto) 0.0, Nucleated Red Blood Cells % (auto) 0.0, Anion Gap 11, Glomerular Filtration Rate 25.6L, Osmolality 299, Lactic Acid Level 2.0, Calcium Level 9.3, Total Bilirubin 0.6, Direct Bilirubin 0.2, Aspartate Amino Transf (AST/SGOT) 12, Alanine Aminotransferase (ALT/SGPT) 17, Alkaline Phosphatase 109, Ammonia 18, Total Creatine Kinase 43, Creatine Kinase MB < 1.0, Creatine Kinase MB Relative Index 2.33, Troponin I < 0.02, KK-Dcb-E-Type Natriuretic Peptide 5389H, Total Protein 6.8, Albumin 3.1L, Albumin/Globulin Ratio 0.8L, Procalcitonin 0.23, Thyroid Stimulating Hormone (TSH) 2.100, Coronavirus (COVID-19)(PCR) NEGATIVE, Influenza Type A (RT-PCR) NEGATIVE, Influenza Type B (RT-PCR) NEGATIVE, Respiratory Syncytial Virus (PCR) NEGATIVE 04/06/20 17:29: Bedside Glucose (Misc Panel) 186H 04/06/20 17:38: Urine Color YELLOW, Urine Appearance CLEAR, Urine pH 5.0, Urine Specific [place] 1.008, Urine Protein NEGATIVE, Urine Glucose (UA) NEGATIVE, Urine Ketones NEGAT HAKAN, Urine Blood NEGATIVE, Urine Nitrite NEGATIVE, Urine Bilirubin NEGATIVE, Urine Urobilinogen 0.2, Urine Leukocyte Esterase NEGATIVE, Urine WBC (Auto) 0, Urine RBC (Auto) 1, Urine Hyaline Casts (Auto) 1, Urine Bacteria (Auto) NEGATIVE, Urine Squamous Epithelial Cells 0, Urine Sperm (Auto) 04/06/20 22:49: Prothrombin Time 18.3H, Prothromb Time International Ratio 1.49, Activated Partial Thromboplast Time 49.4H, Fibrinogen 751H, D-Dimer, Quantitative 1152.29H, Blood Gas Bicarbonate Standard 28.2, Venous Blood pH 7.456H, Venous Blood Partial Pressure CO2 41.1, Venous Blood Partial Pressure O2 146.8H, Venous Blood Total Carbon Dioxide 29.6H, Venous Blood HCO3 28.3H, Venous Blood Oxygen Saturation 98.5H, Venous Blood Base Excess 4.1H, Ferritin 142, Lactate Dehydrogenase 436H, C-Reactive Protein, Quantitative 15.80H 04/07/20 00:16: Bedside Glucose (Misc Panel) 100, Methicillin-Resist S.aureus DNA PCR NOT DETECTED 04/07/20 01:00: Coronavirus (COVID-19)(PCR) NEGATIVE, Influenza Type A (RT-PCR) NEGATIVE, Influenza Type B (RT-PCR) NEGATIVE, Respiratory Syncytial Virus (PCR) NEGATIVE 04/07/20 06:04: Nucleated Red Blood Cells % (auto) 0.0, Anion Gap 6L, Glomerular Filtration Rate 26.0L, Calcium Level 9.4 04/07/20 07:02: 04/07/20 08:14: Bedside Glucose (Misc Panel) 143H CBC/BMP Laboratory Tests 04/06/20 17:13 04/07/20 06:04 Microbiology Microbiology 04/06/20 Blood Culture, Received Pending 04/06/20 Blood Culture, Received Pending LAKESHA ESPINOZA DO Apr 07, 2020 12:23
[2020-04-07] MEDS: MORPHINE 2 MG/ML 1ML VIAL (J2270) IV PRN ×6 (12:26→23:35)
[2020-04-07] MEDS ORDERED: diphenhydrAMINE 50MG/ML VIAL (J1200) IV PRN (12:45)
[2020-04-08] MEDS: MORPHINE 2 MG/ML 1ML VIAL (J2270) IV PRN ×3 (04:33→11:25)
[2020-04-08] MEDS: ADVAIR HFA 115/21MCG INHALER INH SCH (08:00)
[2020-04-08] MEDS: LORazepam 2 MG/ML VIAL IV PRN (08:51)
[2020-04-08] MEDS: POLYVINYL ALCOHOL OPHTH SOLN 15 ML(LIQUITEARS) OU SCH (08:52)
[2020-04-08] MEDS ORDERED: DIGOXIN 0.125 MG TAB PO SCH (09:00)
[2020-04-08] MEDS ORDERED: LORazepam 2 MG/ML VIAL IV PRN (11:15)
[2020-04-08] MEDS ORDERED: MORPHINE 10MG/0.5ML ORAL CONCENTRATE SOLUTION U/D SL PRN (11:30)
[2020-04-08] MEDS ORDERED: ONDANSETRON 4 MG ORAL DISINTEGRATING TAB PO PRN (11:30)
[2020-04-08] MEDS ORDERED: LORazepam 1 MG TAB PO PRN (11:30)
[2020-04-08] MEDS ORDERED: diphenhydrAMINE 25MG CAP PO PRN (11:30)
[2020-04-08] MEDS ORDERED: LevoFLOXacin IV 750 MG in IV 1 EA IV SCH (21:00)
--- NOTE | 2020-04-08 23:01 | DS.PDOC ---
Discharge Summary General Date of Admission Apr 06, 2020 at 19:22 Date of Discharge Apr 08, 2020 Discharge Summary PROCEDURES PERFORMED DURING STAY: None ADMITTING DIAGNOSES: 1. Sepsis 2/2 healthcare associated pneumonia 2. Metabolic encephalopathy 2/2 sepsis 3. Acute respiratory failure 2/2 pneumonia 4. Acute decompensated congestive heart failure 5. Atrial fibrillation 6. Chronic kidney disease stage IV 7. Diabetes mellitus type 2 8. Obstructive sleep apnea 9. GERD 10. Chronic pain DISCHARGE DIAGNOSES: 1. Sepsis 2/2 healthcare associated pneumonia 2. Metabolic encephalopathy 2/2 sepsis 3. Acute respiratory failure 2/2 pneumonia 4. Acute decompensated congestive heart failure 5. Atrial fibrillation 6. Chronic kidney disease stage IV 7. Diabetes mellitus type 2 8. Obstructive sleep apnea 9. GERD 10. Chronic pain COMPLICATIONS/CHIEF COMPLAINT: Altered mental status, Hypoxia. 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 When she was brought into the ED, she had a pulse ox of 68% per ED note. She required 4 to 5 L of oxygen to maintain a saturation of 89 to 90%. She also had a fever of 100.9 deg F. She was intermittently confused, but desired to go back to [facility] and did not want to be in the hospital. Labwork was significant for leukocytosis. Lactic acid was borderline at 2. CT chest demonstrated diffuse bilateral ground glass opacities and consolidation. There was concern for COVID, but patient had tested negative twice here and once at [facility]. Patient was admitted for sepsis secondary to healthcare associated pneumonia. HOSPITAL COURSE: While in the hospital, she was agitated. She did not want to be here. Her MOLST was from 2012 and signed by her. It listed do not sent to hospital in addition to DNR/DNI. It had also listed LEARNING CENTER COORDINATOR and limited medical treatment which was not clear. I reached out to her health care proxy Sister Rosi Benitez for clarifications. Sister Rosi Benitez reported that the last 2 times they had seen her, she was confused and did not recognize her. I explained that we cannot do both limited medical intervention and LEARNING CENTER COORDINATOR together. I explained limited medical intervention would involve medication without heroic measures, and she may survive while LEARNING CENTER COORDINATOR would mean we would withdrawal life prolonging treatment to be made comfortable, but she would most likely pass away. Sister Rosi Benitez thought Sister Lilibeth would want LEARNING CENTER COORDINATOR. Patient was made LEARNING CENTER COORDINATOR. The next day, I reached out to Sister Rosi Benitez and explained again limited medical intervention and LEARNING CENTER COORDINATOR. With limited medical intervention, we would give medications without heroic measures, and she may survive this. If she was LEARNING CENTER COORDINATOR, she would be comfortable, but she will pass away. Sister Rosi Patel estelle further enforced that she would want LEARNING CENTER COORDINATOR. Sister Margoth Mcelroy on 04/08/2020 at 12:40 peacefully and comfortably . Vital Signs/I&Os Vital Signs Date Time Temp Pulse Resp B/P (MAP) Pulse Ox O2 Delivery O2 Flow Rate FiO2 04/08/20 09:00 5.0 04/07/20 12:36 26 Nasal Cannula 04/07/20 10:56 98.8 104 112/59 (76) 90 I&O- Last 24 Hours up to 6 AM 04/08/20 06:00 Intake Total 820 ml Output Total 925 ml Balance -105 ml Microbiology Microbiology 04/06/20 Blood Culture - Preliminary, Resulted No Growth after 48 hours. All Specime... 04/06/20 Blood Culture - Preliminary, Resulted No Growth after 48 hours. All Specime... Discharge Medications Scheduled Acetaminophen (Tylenol Arthritis) 650 Mg Tablet.er, 1,300 MG PO QHS, (Reported) Atorvastatin Calcium (Lipitor) 20 Mg Tablet, 20 MG PO QHS, (Reported) Bisoprolol Fumarate (Bisoprolol Fumarate) 5 Mg Tablet, 5 MG PO QHS, (Reported) Calcium Carbonate/Vitamin D3 (Calcium 500-Vit D3 200 Caplet) 1 Each Tablet, 1 TAB PO DAILY, (Reported) Cyclosporine (Restasis) 0.05% Droperette, 1 DROP OU BID, (Reported) Digoxin (Digoxin) 125 Mcg Tablet, 125 MCG PO Q2D, (Reported) Docusate Sodium (Colace) 100 Mg Capsule, 100 MG PO DAILY, (Reported) Doxercalciferol (Doxercalciferol) 1 Mcg Capsule, 3 MCG PO QPM, (Reported) Ergocalciferol (Vitamin D2) (Drisdol) 1,250 Mcg Capsule, 1,250 MCG PO Q2WK, (Reported) 4th and 18th Febuxostat (Uloric) 40 Mg Tablet, 40 MG PO QPM, (Reported) AT 1600 Ferrous Gluconate (Ferrous Gluconate) 324 Mg Tablet, 324 MG PO 3XW, (Reported) ON WEDNESDAY, WEDNESDAY, AND WEDNESDAY AT 0600; WITH ORANGE JUICE ON AN EMPTY STOMACH Fluticasone/Vilanterol (Breo Ellipta 100-25 Mcg INH) 1 Each Blst.w.dev, 1 PUFF INH QPM, (Reported) AT 1600 Gabapentin (Gabapentin) 100 Mg Capsule, 200 MG PO QHS, (Reported) Insulin Glargine (Lantus) 100 Unit/1 Ml Vial, 44 UNITS SC BID, (Reported) Insulin Lispro (Humalog Kwikpen U-100) 100 Unit/1 Ml Insuln.pen, 6 UNITS SC BID, (Reported) 1100,1630 Loratadine (Loratadine) 10 Mg Tablet, 10 MG PO DAILY, (Reported) Magnesium Chloride (Mag Delay) 64 Mg Tablet.dr, 128 MG PO DAILY, (Reported) Omeprazole (Omeprazole) 20 Mg Capsule.dr, 20 MG PO BID, (Reported) Polyvinyl Alcohol (Artificial Tears) 15 Ml Drops, 1 DROP OU BID, (Reported) Rivaroxaban (Xarelto) 15 Mg Tablet, 15 MG PO QPM, (Reported) Spironolactone (Aldactone) 25 Mg Tablet, 25 MG PO DAILY, (Reported) Torsemide (Torsemide) 10 Mg Tablet, 30 MG PO BID, (Reported) 0900,1400 Tramadol HCl (Ultram) 50 Mg Tablet, 50 MG PO QHS, (Reported) Vit C/E/Zn/Coppr/Lutein/Zeaxan (Preservision Areds 2 Softgel) 1 Each Capsule, 1 EACH PO BID, (Reported) Scheduled PRN Acetaminophen (Tylenol) 325 Mg Tablet, 650 MG PO Q6H PRN for ARTHRITIS PAIN, (Reported) Albuterol Sulfate (Proair Hfa) 8.5 Gm Hfa.aer.ad, 2 PUFF INH Q4H PRN for COUGH, (Reported) Calcium Carbonate (Calcium Antacid) 400 Mg Tab.chew, 800 MG PO TID PRN for GAS PAIN, (Reported) Capsaicin (Capsaicin) 0.025% Cream..g., 1 APLCT TOP BID PRN for FOOT PAIN, (Reported) Mag Hydrox/Aluminum Hyd/Simeth (Maalox Maximum Strength Susp) 355 Ml Oral.susp, 30 ML PO Q6H PRN for INDIGESTION, (Reported) Magnesium Hydroxide (Milk of Magnesia) 400 Mg/5 Ml Oral.susp, 10 ML PO DAILY PRN for CONSTIPATION, (Reported) Menthol (Biofreeze) 118 Ml Gel..ml., 1 APLCT TOP PRN PRN for PAINFUL JOINTS, (Reported) Nystatin (Nystatin Powder) 15 Gm Powder, 1 APLCT TOP BID PRN for EXCORIATION, (Reported) APPLY UNDER BREASTS AND SKIN FOLDS Ondansetron (Ondansetron Odt) 4 Mg Tab.rapdis, 4 MG PO Q6H PRN for NAUSEA OR VOMITING, (Reported) Simethicone (Simethicone) 80 Mg Tab.chew, 80 MG PO TID PRN for GAS PAIN, (Reported) Tramadol HCl (Ultram) 50 Mg Tablet, 50 MG PO Q6H PRN for PAIN, (Reported) guaiFENesin (Diabetic Tussin Ex) 100 Mg/5 Ml Liquid, 10 ML PO Q6H PRN for COUGH, (Reported) Allergies Coded Allergies: NSAIDS (Non-Steroidal Anti-Inflamma (Unverified Allergy, Unknown, 10/26/19) Penicillins (Verified Allergy, Unknown, 10/26/19) chlorpheniramine (Verified Allergy, Unknown, 10/26/19) codeine (Verified Allergy, Unknown, 10/26/19) cortisone (Unverified Allergy, Unknown, 10/26/19) erythromycin base (Verified Allergy, Unknown, 10/26/19) LAKESHA ESPINOZA DO Apr 08, 2020 23:01
[2020-04-11 15:12] LABS: BODY FLUID CULTURE Not indicated. (.); LEGIONELLA ANTIGEN URINE Negative (Negative); ORGANISM ID Not indicated. (.); SPECIMEN SOURCE Urine (.); URINE STREP PNEUMONIAE ANTIGEN Negative (Negative)
== END 2020-04-08 12:40 | disposition expired | DRG 871 ==
LOC: EDBD 16:56 → M ED 16:56 → M ED INP 19:22 → ENRESERV 23:00 → M PCU 23:41 → M MS5PR 04-07 13:05
PROVIDERS: ADMIT Internal Medicine; ATTEND Internal Medicine
DX: A41.9 Sepsis, unspecified organism (principal); J18.9 Pneumonia, unspecified organism; U07.1 COVID-19; I50.33 Acute on chronic diastolic (congestive) heart failure; N18.4 Chronic kidney disease, stage 4 (severe); N18.32 Chronic kidney disease, stage 3b; I12.9 Hypertensive chronic kidney disease with stage 1 through stage 4 chronic kidney disease, or unspecified chronic kidney disease; E11.22 Type 2 diabetes mellitus with diabetic chronic kidney disease; G47.33 Obstructive sleep apnea (adult) (pediatric); K21.9 Gastro-esophageal reflux disease without esophagitis; I48.91 Unspecified atrial fibrillation; Z79.899 Other long term (current) drug therapy; Z79.4 Long term (current) use of insulin; Z88.0 Allergy status to penicillin; Z88.6 Allergy status to analgesic agent; Z88.5 Allergy status to narcotic agent; Z88.8 Allergy status to other drugs, medicaments and biological substances; E66.01 Morbid (severe) obesity due to excess calories; Z79.01 Long term (current) use of anticoagulants; M19.90 Unspecified osteoarthritis, unspecified site; M10.9 Gout, unspecified; Z66 Do not resuscitate

== ENCOUNTER → 2020-04-08 | Outpatient (REF) | payer MEDICARE, MEDICAID ==
[~2020-04-08] MED LIST changes: +DOXE1CAP2 PO; -DOXE2.5C PO; +HUMA100I5 SC; +LORA-674 PO; +OMEP1CAP73 PO; +ONDA4TAB6 PO; +PRES10CA2 PO; -SIME80CH5 PO; +SIME80TA PO; +TORS10TA3 PO; +XARE15TA PO; +[UNRECOGNIZED DRUG - CODE] PO
== END ==
PROVIDERS: ATTEND Internal Medicine
DX: Z20.822 Contact with and (suspected) exposure to COVID-19 (principal)